=== PATIENT | male | born 1985 | race Caucasian/White ===

== ENCOUNTER 2017-06-15 14:19 | Emergency (ER) | payer SELFPAY ==
[2017-06-15] MEDS ORDERED: IBUPROFEN 200 MG TAB PO ONE (14:48)
[2017-06-15] MEDS ORDERED: IBUPROFEN 400 MG TAB ONE (14:48)
[2017-06-15] MEDS ORDERED: ACETAMINOPHEN 325 MG TABLET ONE (14:48)
[2017-06-15 16:37] LABS: Absolute Lymphocytes (CBC) 0.9 K/uL (0.7-4.9); Absolute Neutrophil 7.9 K/uL (1.8-8.0); Basophils % 0.6 % (0-1.3); Eosinophils % 3.2 % (0-4.4); Hematocrit 45.6 % (39.6-49.0); Lymphocytes % 9.2 % (15.3-44.8); MCH 31.4 pg (27.0-35.0); MCV 90.6 fL (80-100); MPV 8.7 fL (7.6-11.3); Monocytes % 9.8 % (3.3-12.3); RBC Red Blood Cell Count 5.03 M/uL (4.33-5.43)
[2017-06-15 16:44] LABS: Protime INR 1.16
[2017-06-15 16:46] LABS: Potassium 3.9 mEq/L (3.6-5.0)
[2017-06-15 16:52] LABS: Albumin 4.2 g/dL (3.2-5.5); Bilirubin Direct 0.1 mg/dL (0-0.2); Bilirubin Total 0.9 mg/dL (0.3-1.2); Protein, Total 8.3 g/dL (6.0-8.3)
[2017-06-15 17:10] LABS: CKMB Creatine Kinase MB 0.9 ng/ml (0.3-4.0)
[2017-06-15] MEDS ORDERED: ALBUTEROL 2.5 MG/3 ML NEB SOL ONE (17:35)
[2017-06-15] MEDS ORDERED: NA CHLORIDE 0.9% 1,000 ML ONE (17:35)
[2017-06-15] MEDS ORDERED: BENZONATATE 100 MG CAP PO ONE (17:35)
--- NOTE | 2017-06-15 17:54 | RAD REPORT ---
EXAM DESCRIPTION: Emi Gibson (2 Views)06/15/2017 3:58 pm CLINICAL HISTORY: Cough COMPARISON: March 2017 FINDINGS: The interstitial pattern within the right lung base is mildly prominent. The heart is nor mal size IMPRESSION: Mild prominence of the interstitial pattern within the right lung base may indicate an a typical pneumonia
[2017-06-15] MEDS ORDERED: levoFLOXacin 750 MG TAB ONE (18:17)
--- NOTE | 2017-06-15 18:30 | EDPHYS ---
Physician Documentation [facility] Name: Stephen Ribeiro Age: 31 yrs Sex: Male : 1985 Arrival Date: 06/15/2017 Time: 14:20 Bed 25 Private MD: ED Physician Shailesh Leon HPI: 06/15 15:48 This 31 yrs old Male presents to ER via Ambulatory with complaints of Fever. cp 15:48 The patient reports fever, with an emergency department temperature of 101.4 degrees cp Fahrenheit. Onset: The symptoms/episode began/occurred 2 day(s) ago. Associated signs and symptoms: Pertinent positives: cough, sore throat. Severity of symptoms: in the emergency department the symptoms are unchanged despite home interventions. Historical: - Allergies: 14:51 PENICILLINS; aj - Home Meds: 14:51 Depakote ER Oral [Active]; aj - PMHx: 14:51 Seizures; aj - PSHx: 14:51 None; aj - Immunization history:: Adult Immunizations up to date. - Social history:: Smoking status: Patient uses tobacco products, smokes one pack cigarettes per day. ROS: 16:00 Constitutional: Positive for body aches, chills, fever, Negative for poor PO intake. cp 16:00 Eyes: Negative for injury, pain, redness, and discharge. cp 16:00 ENT: Positive for sore throat, Negative for drainage from ear(s), ear pain, difficulty swallowing, difficulty handling secretions. 16:00 Neck: Negative for pain with movement, pain at rest, stiffness, swelling. 16:00 Cardiovascular: Negative for chest pain, edema, palpitations. 16:00 Respiratory: Positive for cough, "sounds productive", Negative for shortness of breath, wheezing. 16:00 Abdomen/GI: Negative for abdominal pain, vomiting, diarrhea, constipation, black/tarry stool, rectal bleeding. 16:00 Skin: Negative for cellulitis, rash. 16:00 Neuro: Negative for altered mental status, dizziness, weakness. 16:00 All other systems are negative. Exam: 16:05 Constitutional: The patient appears in no acute distress, alert, awake, cp non-diaphoretic, non-toxic, well developed, well nourished. 16:05 Head/Face: Normocephalic, atraumatic. Eyes: Pupils equal round and reactive to light, cp extra-ocular motions intact. Lids and lashes normal. Conjunctiva and sclera are non-icteric and not injected. Cornea within normal limits. Periorbital areas with no swelling, redness, or edema. ENT: Nares patent. No nasal discharge, no septal abnormalities noted. Tympanic membranes are normal and external auditory canals are clear. Oropharynx with no redness, swelling, or masses, exudates, or evidence of obstruction, uvula midline. Mucous membranes moist. Neck: Trachea midline, no thyromegaly or masses palpated, and no cervical lymphadenopathy. Supple, full range of motion without nuchal rigidity, or vertebral point tenderness. No Meningismus. Chest/axilla: Normal chest wall appearance and motion. Nontender with no deformity. No lesions are appreciated. 16:05 Cardiovascular: Rate: tachycardic, Rhythm: regular, Edema: is not appreciated, JVD: is not appreciated. 16:05 Respiratory: the patient does not display signs of respiratory distress, Respirations: normal, no use of accessory muscles, no retractions, no splinting, no tachypnea, labored breathing, is not present, Breath sounds: decreased breath sounds, that are mild, are located in both bases, stridor, is not appreciated, wheezing: is not appreciated. 16:05 Abdomen/GI: Inspection: abdomen appears normal, Bowel sounds: active, all quadrants, Palpation: abdomen is soft and non-tender, in all quadrants, mass, is not appreciated, voluntary guarding, is not appreciated, involuntary guarding, is not appreciated. 16:05 Back: pain, is absent, ROM is normal. 16:05 Skin: cellulitis, is not appreciated, no rash present. 16:05 Neuro: Orientation: to person, place \\T\\ time. Mentation: lucid, able to follow commands, Cerebellar function: is grossly normal, Motor: moves all fours, strength is normal, Sensation: no obvious gross deficits. 17:52 ECG was reviewed by the Attending Physician. cp Vital Signs: 14:51 BP 151 / 72; Pulse 121; Resp 20; Temp 101.4; Pulse Ox 96% on R/A; Weight 90.72 kg; aj Height 5 ft. 10 in. (177.80 cm); 15:27 BP 119 / 69; Pulse 115; Resp 20; Temp 100.1(O); Pulse Ox 96% on R/A; kr2 15:29 Temp 100.1(O); kr2 15:29 Temp 100.1(O); kr2 16:31 BP 122 / 66; Pulse 105; Resp 16; Temp 98.8(O); Pulse Ox 95% on R/A; kr2 17:30 BP 130 / 77; Pulse 100; Resp 19; Pulse Ox 99% on R/A; kr2 18:30 BP 124 / 77; Pulse 102; Resp 19; Pulse Ox 99% on R/A; kr2 14:51 Body Mass Index 28.70 (90.72 kg, 177.80 cm) aj MDM: 15:25 Patient medically screened. cp 18:29 Data reviewed: vital signs, nurses notes, lab test result(s), EKG, radiologic studies, cp plain films. 18:29 Differential diagnosis: URI, bronchitis, pneumonia meningitis. Counseling: I had a cp detailed discussion with the patient and/or guardian regarding: the historical points, exam findings, and any diagnostic results supporting the discharge/admit diagnosis, lab results, radiology results, to return to the emergency department if symptoms worsen or persist or if there are any questions or concerns that arise at home. Response to treatment: the patient's symptoms have markedly improved after treatment, VSS. Will treat for pneumonia with oral Levaquin and discharge to home for continued monitoring. 06/15 15:44 Order name: Influenza Screen (a \\T\\ B) 06/15 15:44 Order name: Strep 06/15 15:44 Order name: Urine Microscopic Only 06/15 15:44 Order name: Basic Metabolic Panel; Complete Time: 17:17 06/15 17:17 Interpretation: Normal except: CL 99; GFR 86. 06/15 15:44 Order name: Blood Culture Adult (2) 06/15 15:44 Order name: CBC with Diff; Complete Time: 16:41 06/15 16:41 Interpretation: Normal except: NATO% 77.2; LYM% 9.2. 06/15 15:44 Order name: Ckmb; Complete Time: 17:17 06/15 17:29 Interpretation: Reviewed. 06/15 15:44 Order name: CPK; Complete Time: 17:17 06/15 15:44 Order name: Lactate; Complete Time: 17:17 06/15 15:44 Order name: LFT's; Complete Time: 17:17 06/15 17:17 Interpretation: Normal except: GLOB 4.1; A/G 1.0. 06/15 15:44 Order name: Procalcitonin; Complete Time: 17:17 06/15 17:29 Interpretation: Within normal limits: Procalcitonin 0.05. 06/15 15:44 Order name: Protime (+inr); Complete Time: 17:17 06/15 17:28 Interpretation: Reviewed. 06/15 15:44 Order name: Ptt, Activated; Complete Time: 17:17 06/15 15:44 Order name: Troponin (emerg Dept Use Only); Complete Time: 17:17 06/15 17:29 Interpretation: Reviewed. 06/15 15:44 Order name: Accucheck; Complete Time: 17:45 06/15 15:44 Order name: Cardiac monitoring; Complete Time: 16:28 06/15 15:44 Order name: EKG - Nurse/Tech; Complete Time: 19:09 06/15 15:44 Order name: XRAY Chest Pa And Lat (2 Views); Complete Time: 18:02 06/15 15:45 Order name: Influenza Screen (A ; Complete Time: 17:17 [facility] 06/15 15:45 Order name: Group A Streptococcus Rapid Sc; Complete Time: 17:17 [facility] 06/15 16:23 Order name: Depakote; Complete Time: 18:02 kr2 06/15 16:54 Order name: Throat Culture [facility] 06/15 18:11 Order name: EKG Electrocardiogram [facility] 06/15 18:58 Order name: Urine Dipstick--Ancillary (enter results) ag 06/15 15:44 Order name: IV Saline Lock - Large Bore; Complete Time: 16:28 cp 06/15 15:44 Order name: Labs collected and sent; Complete Time: 16:28 cp 06/15 15:44 Order name: O2 Per Protocol; Complete Time: 16:28 cp 06/15 15:44 Order name: O2 Sat Monitoring; Complete Time: 16:29 06/15 15:44 Order name: Urine Dipstick-Ancillary (obtain specimen); Complete Time: 18:55 cp EC:52 Rate is 96 beats/min. Rhythm is regular. [place] interval is normal. QRS interval is normal. cp QT interval is normal. Clinical impression: Abnormal EKG without significant change. Interpreted by me. Reviewed by me. Administered Medications: 14:53 Drug: Tylenol 650 mg Route: PO; aj 15:29 Follow up: Temp 100.1 Oral; Response: No adverse reaction; Pain is decreased kr2 14:53 Drug: Motrin 600 mg Route: PO; aj 15:29 Follow up: Temp 100.1 Oral; Response: No adverse reaction; Temperature is decreased kr2 17:43 Drug: NS 0.9% 1000 ml Route: IV; Rate: 1 bolus; Site: right antecubital; kr2 19:07 Follow up: Response: No adverse reaction; IV Status: Completed infusion kr2 17:43 Drug: Tessalon Perle 200 mg Route: PO; kr2 19:07 Follow up: Response: No adverse reaction; Pain is decreased kr2 17:43 Drug: Albuterol 2.5 mg Route: Inhalation; kr2 19:06 Follow up: Response: No adverse reaction kr2 18:20 Drug: LevaQUIN 750 mg Route: PO; kr2 19:06 Follow up: Response: No adverse reaction kr2 Disposition: 06/15/17 18:30 Discharged to Home. Impression: Pneumonia due to other specified bacteria. - Condition is Stable. - Discharge Instructions: Pneumonia, Adult. - Prescriptions for Levaquin 750 mg Oral Tablet - take 1 tablet by ORAL route once daily for 10 days start afternoon of 06-16-2017; 9 tablet. Albuterol Sulfate 90 mcg/actuation - inhale 1-2 puff by INHALATION route every 4-6 hours; 1 Inhaler. - Medication Reconciliation Form, Thank You Letter, Antibiotic Education, Prescription Opioid Use, Work release form form. - Follow up: Private Physician; When: 1 - 2 days; Reason: Recheck today's complaints. - Problem is new. - Symptoms have improved. Addendum: 06/18/2017 19:04 Co-signature as Attending Physician, Shailesh Leon MD. g s Signatures: Dispatcher [employer] Karina Barboza RN RN aj Page, Corey, PA PA cp Leon, Shailesh, MD MD gs Christine, Nettie, RN RN kr2
--- NOTE | 2017-06-15 18:30 | ER ---
Nurse's Notes [facility] Name: Stephen Ribeiro Age: 31 yrs Sex: Male : 1985 Arrival Date: 06/15/2017 Time: 14:20 Bed 25 Private MD: Diagnosis: Pneumonia due to other specified bacteria Presentation: 06/15 14:50 Presenting complaint: Patient states: Fever and body aches with cough since Monday aj night. Patient was tested at urgent care for flu and strep, both negative. Transition of care: patient was not received from another setting of care. Onset of symptoms was June 13, 2017. Initial Sepsis Screen: Does the patient meet any 2 criteria? No. Patient's initial sepsis screen is negative. Does the patient have a suspected source of infection? No. Patient's initial sepsis screen is negative. Care prior to arrival: None. 14:50 Method Of Arrival: Ambulatory aj 14:50 Acuity: TRISH 4 aj Triage Assessment: 14:51 General: Appears in no apparent distress. comfortable, Behavior is calm, cooperative, aj appropriate for age. Pain: Complains of pain in body aches. Neuro: Level of Consciousness is awake, alert, obeys commands, Oriented to person, place, time, situation. Respiratory: Reports cough that is Airway is patent Respiratory effort is even, unlabored, Respiratory pattern is regular, symmetrical. Derm: Skin is intact, is healthy with good turgor, Skin is pink, warm \T\ dry. normal. Historical: - Allergies: 14:51 PENICILLINS; aj - Home Meds: 14:51 Depakote ER Oral [Active]; aj - PMHx: 14:51 Seizures; aj - PSHx: 14:51 None; aj - Immunization history:: Adult Immunizations up to date. - Social history:: Smoking status: Patient uses tobacco products, smokes one pack cigarettes per day. Screenin:26 Abuse screen: Denies threats or abuse. Denies injuries from another. Nutritional kr2 screening: No deficits noted. Tuberculosis screening: No symptoms or risk factors identified. Fall Risk None identified. Assessment: 15:22 General: Appears in no apparent distress. comfortable, well groomed, well developed, kr2 well nourished, Behavior is calm, cooperative, appropriate for age. Pain: Complains of pain in entire body Pain currently is 8 out of 10 on a pain scale. Quality of pain is described as aching, Is continuous, Alleviated by nothing. Neuro: Level of Consciousness is awake, alert, obeys commands, Oriented to person, place, time, situation. Cardiovascular: Capillary refill < 3 seconds in bilateral fingers Patient's skin is warm and dry. Respiratory: Reports cough that is productive, persistent Airway is patent Respiratory effort is even, unlabored, Respiratory pattern is regular, symmetrical. GI: Abdomen is flat, non-distended. : No signs and/or symptoms were reported regarding the genitourinary system. EENT: Nares are clear bilaterally Oral mucosa is moist. Reports nasal congestion nasal discharge. Derm: Skin is intact, is healthy with good turgor, Skin is pink, warm \T\ dry. Musculoskeletal: Circulation, motion, and sensation intact. 16:30 Reassessment: Patient appears in no apparent distress at this time. Patient and/or kr2 family updated on plan of care and expected duration. Pain level reassessed. 17:30 Reassessment: Patient appears in no apparent distress at this time. Patient and/or kr2 family updated on plan of care and expected duration. Pain level reassessed. Patient is alert, oriented x 3, equal unlabored respirations, skin warm/dry/pink. Patient denies pain at this time. Patient states feeling better. 19:05 Reassessment: Patient appears in no apparent distress at this time. Patient is alert, kr2 oriented x 3, equal unlabored respirations, skin warm/dry/pink. Patient denies pain at this time. Patient states feeling better. Patient states symptoms have improved. Vital Signs: 14:51 BP 151 / 72; Pulse 121; Resp 20; Temp 101.4; Pulse Ox 96% on R/A; Weight 90.72 kg; aj Height 5 ft. 10 in. (177.80 cm); 15:27 BP 119 / 69; Pulse 115; Resp 20; Temp 100.1(O); Pulse Ox 96% on R/A; kr2 15:29 Temp 100.1(O); kr2 15:29 Temp 100.1(O); kr2 16:31 BP 122 / 66; Pulse 105; Resp 16; Temp 98.8(O); Pulse Ox 95% on R/A; kr2 17:30 BP 130 / 77; Pulse 100; Resp 19; Pulse Ox 99% on R/A; kr2 18:30 BP 124 / 77; Pulse 102; Resp 19; Pulse Ox 99% on R/A; kr2 14:51 Body Mass Index 28.70 (90.72 kg, 177.80 cm) aj ED Course: 14:20 Patient arrived in ED. as 14:51 Triage completed. aj 14:51 Arm band placed on left wrist. Patient placed in waiting room, Patient notified of wait aj time. Antipyretics given from triage as ordered by an ER provider. 15:09 Nettie King, RN is Primary Nurse. kr2 15:25 Don Marie PA is PHCP. cp 15:25 Shailesh Leon MD is Attending Physician. cp 15:26 Patient has correct armband on for positive identification. Bed in low position. Call kr2 light in reach. Side rails up X 1. Adult w/ patient. Pulse ox on. NIBP on. Door closed. Head of bed elevated. 15:54 Patient moved to radiology via wheelchair. mh1 15:56 XRAY Chest Pa And Lat (2 Views) In Process Unspecified. EDMS 16:15 Inserted saline lock: 20 gauge in right antecubital area, using aseptic technique. kr2 Blood collected. 16:15 First set of blood cultures drawn by me. kr2 16:35 Second set of blood cultures drawn by me. kr2 19:07 No provider procedures requiring assistance completed. IV discontinued, intact, kr2 bleeding controlled, No redness/swelling at site. Pressure dressing applied. Administered Medications: 14:53 Drug: Tylenol 650 mg Route: PO; aj 15:29 Follow up: Temp 100.1 Oral; Response: No adverse reaction; Pain is decreased kr2 14:53 Drug: Motrin 600 mg Route: PO; aj 15:29 Follow up: Temp 100.1 Oral; Response: No adverse reaction; Temperature is decreased kr2 17:43 Drug: NS 0.9% 1000 ml Route: IV; Rate: 1 bolus; Site: right antecubital; kr2 19:07 Follow up: Response: No adverse reaction; IV Status: Completed infusion kr2 17:43 Drug: Tessalon Perle 200 mg Route: PO; kr2 19:07 Follow up: Response: No adverse reaction; Pain is decreased kr2 17:43 Drug: Albuterol 2.5 mg Route: Inhalation; kr2 19:06 Follow up: Response: No adverse reaction kr2 18:20 Drug: LevaQUIN 750 mg Route: PO; kr2 19:06 Follow up: Response: No adverse reaction kr2 Outcome: 18:30 Discharge ordered by . cp 19:08 Discharged to home ambulatory, with family. kr2 19:08 Condition: stable 19:08 Discharge instructions given to patient, family, Instructed on discharge instructions, follow up and referral plans. medication usage, Demonstrated understanding of instructions, follow-up care, medications, Prescriptions given X 2. 19:08 Patient left the ED. kr2 Signatures: Dispatcher [employer] EDMS Karina Hernandez RN RN Kakyay Roman [facility] Thelma Fernandes Corey, PA PA cp Reaves, Karey, RN RN kr2 Corrections: (The following items were deleted from the chart) 15:26 15:22 Pain: Denies pain. kr2 kr2 15:26 15:22 Respiratory: Airway is patent Respiratory effort is even, unlabored, Respiratory kr2 pattern is regular, symmetrical, kr2 15:30 15:27 BP 119 / 69; Pulse 115bpm; Resp 20bpm; Pulse Ox 96% RA; kr2 kr2 16:45 16:31 BP 122 / 66; Pulse 105bpm; Resp 16bpm; Pulse Ox 95% RA; kr2 kr2 19:05 18:30 BP 130 / 77; Pulse 100bpm; Resp 19bpm; Pulse Ox 99% RA; kr2 kr2
[2017-06-15 19:16] VITALS: TEMP 98.8
[2017-06-15 19:17] VITALS: O2SAT 99
[2017-06-15 19:18] VITALS: BP 124/77
[2017-06-15 19:29] LABS: Urine Blood NEGATIVE (NEG); Urine Glucose NEGATIVE (NEG); Urine Protein TRACE (NEG); Urine pH 5.5 (5.0-7.0)
[2017-06-15 19:41] LABS: Urine Bacteria <20 /HPF (NONE SEEN); Urine RBC <5 /HPF (NONE SEEN)
[2017-06-15 19:42] LABS: Urine Culture Reflex Order NOT NEEDED; Urine Mucus 4+ /HPF (NONE SEEN)
--- NOTE | 2017-06-16 16:29 | EKG ---
Test Date: 2017-06-15 Test Time: 17:45:11 Student Life Advisor: BARRY MEASUREMENT RESULTS: Intervals: Rate: 96 LA: 134 QRSD: 90 QT: 354 QTc: 447 [place]: P: 72 LA: 134 QRS: 70 T: 250 INTERPRETIVE STATEMENTS: Normal sinus rhythm RSR' or QR pattern in V1 suggests right ventricular conduction delay Cannot rule out Inferior infarct, age undetermined T wave abnormality, consider lateral ischemia Abnormal ECG Compared to ECG 03/30/2017 14:03:25 RSR' in V1 or V2 now present T-wave abnormality now present Possible ischemia now present Left ventricular hypertrophy no longer present Myocardial infarct finding still present Electronically Signed On 06-16-17 16:24:02 CDT by Grady Goodrich
== END 2017-06-15 19:08 | disposition home or self-care (01) ==
LOC: ER 14:19
DX: J15.8 Pneumonia due to other specified bacteria (principal); G40.909 Epilepsy, unspecified, not intractable, without status epilepticus; F17.210 Nicotine dependence, cigarettes, uncomplicated; Z88.0 Allergy status to penicillin
CPT/HCPCS: 36415; 71046; 80048; 80076; 80164; 81003; 81015; 82550; 82553; 83605; 84145; 84484; 85025; 85610; 85730; 87040; 87070; 87081; 87804; 93005; 96360; 99284; J7030

== ENCOUNTER 2017-06-17 08:01 | Emergency (ER) | payer SELFPAY ==
[2017-06-17] MEDS ORDERED: IPRATROPIUM BROM 0.5MG/2.5ML ONE (08:12)
[2017-06-17] MEDS ORDERED: ALBUTEROL 2.5 MG/3 ML NEB SOL ONE (08:12)
[2017-06-17 08:38] LABS: Absolute Lymphocytes (CBC) 1.2 K/uL (0.7-4.9); Absolute Neutrophil 4.8 K/uL (1.8-8.0); Basophils % 0.6 % (0-1.3); Eosinophils % 4.8 % (0-4.4); Hematocrit 43.6 % (39.6-49.0); Lymphocytes % 16.2 % (15.3-44.8); MCH 30.6 pg (27.0-35.0); MCV 90.4 fL (80-100); MPV 8.6 fL (7.6-11.3); Monocytes % 13.8 % (3.3-12.3); RBC Red Blood Cell Count 4.82 M/uL (4.33-5.43)
[2017-06-17 08:45] LABS: BUN Blood Urea Nitrogen 11 mg/dL (6-20); Bicarbonate 23 mEq/L (21-31); Glucose Level 116 mg/dL (65-120); Potassium 4.3 mEq/L (3.6-5.0); Sodium Level 131 mEq/L (135-145)
[2017-06-17] MEDS ORDERED: NA CHLORIDE 0.9% 1,000 ML ONE (08:52)
[2017-06-17] MEDS ORDERED: HYDROCODONE/CHLORPHEN 5 ML/OSYR ONE (08:57)
[2017-06-17 09:31] LABS: Blood Morphology Comment NOT SEEN (NOT SEEN); Platelet Estimate ADEQ
--- NOTE | 2017-06-17 09:41 | EDPHYS ---
Physician Documentation [facility] Name: Stephen Ribeiro Age: 31 yrs Sex: Male : 1985 Arrival Date: 06/17/2017 Time: 08:04 Bed 7 Private MD: ED Physician Don Liu HPI: 06/17 08:11 This 31 yrs old Male presents to ER via Unassigned with complaints of Cough. kb 08:11 The patient or guardian reports cough, that is intermittent, described as moderate, kb with no sputum. Severity of symptoms: At their worst the symptoms were moderate, in the emergency department the symptoms are unchanged. Modifying factors: The symptoms are alleviated by nothing, the symptoms are aggravated by nothing. Associated signs and symptoms: Pertinent negatives: chest pain, diarrhea, ear ache, fever, nausea, rhinorrhea, sore throat, vomiting. The patient has not experienced similar symptoms in the past. The patient has been recently seen at the [facility] Emergency Department, this week, for similar complaints labs were performed, X-rays were performed, was given a prescription for antibiotics. 08:12 Onset: The symptoms/episode began/occurred 4 day(s) ago. kb Historical: - Allergies: 08:16 PENICILLINS; iw - Home Meds: 08:16 Depakote ER Oral [Active]; iw - PMHx: 08:16 Seizures; iw - PSHx: 08:16 None; iw - Immunization history:: Adult Immunizations not up to date. - Social history:: Smoking status: Patient uses tobacco products, smokes one pack cigarettes per day. ROS: 08:11 Constitutional: Negative for fever, chills, and weight loss, ENT: Negative for injury, kb pain, and discharge, Neck: Negative for injury, pain, and swelling, Cardiovascular: Negative for chest pain, palpitations, and edema, Abdomen/GI: Negative for abdominal pain, nausea, vomiting, diarrhea, and constipation, Back: Negative for injury and pain, : Negative for injury, bleeding, discharge, and swelling, MS/Extremity: Negative for injury and deformity, Skin: Negative for injury, rash, and discoloration, Neuro: Negative for headache, weakness, numbness, tingling, and seizure. 08:11 Respiratory: Positive for cough, with no reported sputum, Negative for dyspnea on exertion, hemoptysis, orthopnea, pleurisy, shortness of breath, sputum production, wheezing. Exam: 08:11 Constitutional: This is a well developed, well nourished patient who is awake, alert, kb and in no acute distress. Head/Face: Normocephalic, atraumatic. Neck: Trachea midline, no thyromegaly or masses palpated, and no cervical lymphadenopathy. Supple, full range of motion without nuchal rigidity, or vertebral point tenderness. No Meningismus. Chest/axilla: Normal chest wall appearance and motion. Nontender with no deformity. No lesions are appreciated. Cardiovascular: Regular rate and rhythm with a normal S1 and S2. No gallops, murmurs, or rubs. Normal PMI, no JVD. No pulse deficits. Respiratory: Lungs have equal breath sounds bilaterally, clear to auscultation and percussion. No rales, rhonchi or wheezes noted. No increased work of breathing, no retractions or nasal flaring. Abdomen/GI: Soft, non-tender, with normal bowel sounds. No distension or tympany. No guarding or rebound. No evidence of tenderness throughout. Skin: Warm, dry with normal turgor. Normal color with no rashes, no lesions, and no evidence of cellulitis. MS/ Extremity: Pulses equal, no cyanosis. Neurovascular intact. Full, normal range of motion. Neuro: Awake and alert, GCS 15, oriented to person, place, time, and situation. Cranial nerves II-XII grossly intact. Motor strength 5/5 in all extremities. Sensory grossly intact. Cerebellar exam normal. Normal gait. Vital Signs: 08:16 BP 132 / 85; Pulse 103; Resp 20 S; Temp 98.2(O); Pulse Ox 96% on R/A; Weight 90.72 kg; iw Height 5 ft. 2 in. (157.48 cm); Pain 10/10; 08:46 BP 126 / 80; Pulse 99; Resp 19; Pulse Ox 97% on R/A; ae1 08:16 Body Mass Index 36.58 (90.72 kg, 157.48 cm) iw MDM: 08:04 Patient medically screened. kb 08:11 Data reviewed: vital signs, nurses notes. Data interpreted: Pulse oximetry: on room air kb is 96 %. Interpretation: normal. 09:36 Counseling: I had a detailed discussion with the patient and/or guardian regarding: the kb historical points, exam findings, and any diagnostic results supporting the discharge/admit diagnosis, lab results, radiology results, the need for further work-up and treatment in the hospital, smoking cessation. Physician consultation: Maria Guadalupe Johnson MD was contacted at 09:37, regarding admission, to the medical/surgical unit. patient's condition, and will see patient in ED, shortly. ED course: Worsening pneumonia on x-ray, wheezing bilaterally after neb treatment, O2 sat 91-94% on room air after neb. Will admit for failed outpt therapy, IV antibiotics. 06/17 08:11 Order name: CBC with Diff; Complete Time: 09:32 kb 06/17 08:11 Order name: Basic Metabolic Panel; Complete Time: 08:50 kb 06/17 08:11 Order name: Chest Pa And Lat (2 Views) XRAY; Complete Time: 10:26 kb 06/17 09:30 Order name: Manual Differential; Complete Time: 09:32 EDMS 06/17 09:36 Order name: Blood Culture Adult (2) kb 06/17 09:36 Order name: Procalcitonin; Complete Time: 10:42 kb Administered Medications: 08:12 Drug: DuoNeb (3:1) (2.5 mg - 0.5 mg) 3 ml Route: Nebulizer; ae1 11:24 Follow up: Response: Other; SOB decreased. ae1 08:55 Drug: NS 0.9% 1000 ml Route: IV; Rate: 1000 ml; Site: right antecubital; ae1 08:59 Drug: Tussionex Pennkinetic ER 5 ml Route: PO; ae1 11:24 Follow up: Response: Other; Cough decreased. ae1 09:50 Drug: SOLU-Medrol 125 mg Route: IVP; Site: right antecubital; ae1 11:24 Follow up: Response: No adverse reaction ae1 09:54 Drug: Rocephin - (cefTRIAXone) 1 grams Route: IVPB; Infused Over: 30 mins; Site: right ae1 antecubital; 09:59 Follow up: IV Status: Completed infusion ae1 09:59 Drug: Zithromax 500 mg Route: IVPB; Infused Over: 1 hrs; Site: right antecubital; ae1 11:23 Follow up: IV Status: Completed infusion ae1 Disposition: 06/17/17 10:35 Discharged to Home. Impression: Bronchitis, not specified as acute or chronic. - Condition is Stable. - Discharge Instructions: Acute Bronchitis, Srpa-op-Npty, Aspiration Pneumonia. - Prescriptions for Advair Diskus 500- 50 mcg/Dose Inhalation Disk with Device - inhale 1 puff by INHALATION route every 12 hours; 1 packet. Clindamycin HCl 300 mg Oral Capsule - take 1 capsule by ORAL route every 6 hours for 10 days; 40 capsule. Singulair 5 mg Oral Tablet - take 1 tablet by ORAL route At bedtime; 20 tablet. Medrol (Lorenzo) 4 mg Oral Tablets, Dose Pack - take 1 tablet by ORAL route as directed - follow package instructions; 1 packet. Albuterol Sulfate 90 mcg/actuation - inhale 1-2 puff by INHALATION route every 4-6 hours; 1 Inhaler. Tessalon Perles 100 mg Oral Capsule - take 1 capsule by ORAL route every 8 hours As needed; 15 capsule. - Medication Reconciliation Form, Thank You Letter, Antibiotic Education, Prescription Opioid Use form. - Follow up: Jori Espinosa MD; When: 1 - 2 days. - Problem is new. - Symptoms are resolved. Addendum: 06/19/2017 08:49 Co-signature as Attending Physician, Don Liu MD I agree with the assessment and c plasencia plan of care. Signatures: Dispatcher [employer] Ashlee Oliveira, DENNIS-C RESIDENTIAL SUPPORT WORKER-Don Borrero MD MD cha Williams, Irene, RN RN iw Matt Arora RN RN ae1 Maria Guadalupe Johnson MD MD rp3 Wendy Hughes Corrections: (The following items were deleted from the chart) 06/17 09:38 09:15 Counseling: I had a detailed discussion with the patient and/or guardian ministerio regarding: the historical points, exam findings, and any diagnostic results supporting the discharge/admit diagnosis, lab results, radiology results, the need for outpatient follow up, a family practitioner, to return to the emergency department if symptoms worsen or persist or if there are any questions or concerns that arise at home, kb
--- NOTE | 2017-06-17 09:41 | ER ---
Nurse's Notes [facility] Name: Stephen Ribeiro Age: 31 yrs Sex: Male : 1985 Arrival Date: 06/17/2017 Time: 08:04 Bed 7 Private MD: Diagnosis: Bronchitis, not specified as acute or chronic Presentation: 06/17 08:14 Presenting complaint: Patient states: was seen here , was diagnosed with iw pneumonia, started Levaquin but is still having cough and can't sleep. Transition of care: patient was not received from another setting of care. Onset of symptoms was June 17, 2017. Initial Sepsis Screen: Does the patient meet any 2 criteria? No. Patient's initial sepsis screen is negative. Does the patient have a suspected source of infection? No. Patient's initial sepsis screen is negative. Care prior to arrival: None. 08:14 Method Of Arrival: Ambulatory iw 08:14 Acuity: TRISH 3 iw Triage Assessment: 08:22 General: Appears in no apparent distress. comfortable, Behavior is cooperative, ae1 agitated, anxious. Pain: Complains of pain in diaphragm. EENT: No signs and/or symptoms were reported regarding the EENT system. Neuro: Level of Consciousness is awake, alert, obeys commands, Oriented to person, place, time, situation. Cardiovascular: Heart tones S1 S2 present Patient's skin is warm and dry. Rhythm is regular. Respiratory: Reports shortness of breath cough that is Airway is patent Respiratory effort is even, unlabored, Respiratory pattern is regular, symmetrical, Breath sounds are clear bilaterally. GI: No signs and/or symptoms were reported involving the gastrointestinal system. : No signs and/or symptoms were reported regarding the genitourinary system. Derm: Skin is normal. Musculoskeletal: Reports Fatigue. Historical: - Allergies: 08:16 PENICILLINS; iw - Home Meds: 08:16 Depakote ER Oral [Active]; iw - PMHx: 08:16 Seizures; iw - PSHx: 08:16 None; iw - Immunization history:: Adult Immunizations not up to date. - Social history:: Smoking status: Patient uses tobacco products, smokes one pack cigarettes per day. Screenin:21 Abuse screen: Denies threats or abuse. Nutritional screening: No deficits noted. ae1 Tuberculosis screening: No symptoms or risk factors identified. Fall Risk None identified. Assessment: 08:57 Reassessment: Patient c/o pain to diaphragm area and pain with cough, patient requests ae1 pain medication, provider notified, new orders received. Vital Signs: 08:16 BP 132 / 85; Pulse 103; Resp 20 S; Temp 98.2(O); Pulse Ox 96% on R/A; Weight 90.72 kg; iw Height 5 ft. 2 in. (157.48 cm); Pain 10/10; 08:46 BP 126 / 80; Pulse 99; Resp 19; Pulse Ox 97% on R/A; ae1 08:16 Body Mass Index 36.58 (90.72 kg, 157.48 cm) iw ED Course: 08:04 Patient arrived in ED. rg4 08:04 Ashlee Gorman FNP-C is PHCP. kb 08:04 Don Liu MD is Attending Physician. kb 08:16 Triage completed. iw 08:16 Arm band placed on. iw 08:18 Matt Arora, GOPAL is Primary Nurse. ae1 08:19 Inserted saline lock: 20 gauge in right antecubital area, using aseptic technique. ae1 Blood collected. 08:21 Bed in low position. Call light in reach. Side rails up X 1. Adult w/ patient. Pulse ox ae1 on. NIBP on. 08:46 X-ray completed. Patient tolerated procedure well. Patient moved to radiology via kp1 wheelchair. Patient taken to an exam room, via wheelchair, Patient moved back from radiology. 08:47 Chest Pa And Lat (2 Views) XRAY In Process Unspecified. EDMS 09:40 Maria Guadalupe Johnson MD is Hospitalizing Provider. kb 10:33 Jori Espinosa MD is Referral Physician. rp3 10:38 Maria Guadalupe Johnson MD staff scientist. rp3 11:21 No provider procedures requiring assistance completed. IV discontinued, intact, ae1 bleeding controlled, No redness/swelling at site. Pressure dressing applied. Administered Medications: 08:12 Drug: DuoNeb (3:1) (2.5 mg - 0.5 mg) 3 ml Route: Nebulizer; ae1 11:24 Follow up: Response: Other; SOB decreased. ae1 08:55 Drug: NS 0.9% 1000 ml Route: IV; Rate: 1000 ml; Site: right antecubital; ae1 08:59 Drug: Tussionex Pennkinetic ER 5 ml Route: PO; ae1 11:24 Follow up: Response: Other; Cough decreased. ae1 09:50 Drug: SOLU-Medrol 125 mg Route: IVP; Site: right antecubital; ae1 11:24 Follow up: Response: No adverse reaction ae1 09:54 Drug: Rocephin - (cefTRIAXone) 1 grams Route: IVPB; Infused Over: 30 mins; Site: right ae1 antecubital; 09:59 Follow up: IV Status: Completed infusion ae1 09:59 Drug: Zithromax 500 mg Route: IVPB; Infused Over: 1 hrs; Site: right antecubital; ae1 11:23 Follow up: IV Status: Completed infusion ae1 Intake: Outcome: 09:40 Decision to Hospitalize by Provider. kb 10:35 Discharge ordered by . rp3 11:22 Discharged to home ambulatory, with family. ae1 11:22 Condition: stable 11:22 Discharge instructions given to patient, family, Instructed on discharge instructions, follow up and referral plans. medication usage, Demonstrated understanding of instructions, Prescriptions given X x6 11:23 Patient left the ED. ae1 Signatures: Dispatcher [employer] EDAshlee Coles, DENNIS-C POWER AND RECOVERY SUPERVISOR-Xenia Jesus RN RN iw Elliott, Andrea, RN RN ae1 Cynthia Reynolds4 Amanda Ross kp1 Maria Guadalupe Johnson MD MD rp3
[2017-06-17] MEDS ORDERED: CEFTRIAXONE/SWI 1gm 1 GM/10 ML SYR ONE (09:48)
[2017-06-17] MEDS ORDERED: METHYLPREDNISOLONE 125 MG INJ ONE (09:48)
[2017-06-17] MEDS ORDERED: AZITHROMYCIN 500 MG/250 ML BAG ONE (09:49)
--- NOTE | 2017-06-17 10:20 | RAD REPORT ---
EXAM DESCRIPTION: RAD - Chest Pa And Lat (2 Views) - 06/17/2017 8:47 am CLINICAL HISTORY: Cough, pneumonia COMPARISON: 06/15/2017, 04/05/2017 FINDINGS: Mild ill-defined right mid lung pulmonary opacity appears progressive/new since comparativ e study. Mild progression in right basilar ill-defined opacity also present. Left retrocardiac lung o pacity appears similar to slightly more dense than on the comparative exam. The heart is normal in si ze. No displaced fractures. IMPRESSION: Mild progression pulmonary opacities noted, particularly in the right mid lung, is most compatible with mild worsening of pneumonia. Findings were discussed with Dr. Johnson.
[2017-06-17 11:27] VITALS: TEMP 98.2
[2017-06-17 11:28] VITALS: BP 126/80; O2SAT 97
== END 2017-06-17 11:23 | disposition home or self-care (01) ==
LOC: ER 08:01 → UNDOADMIN 09:41 → ERHOLD 09:41 → ER 11:23
DX: J40 Bronchitis, not specified as acute or chronic (principal); F17.210 Nicotine dependence, cigarettes, uncomplicated; G40.909 Epilepsy, unspecified, not intractable, without status epilepticus; Z88.0 Allergy status to penicillin
CPT/HCPCS: 36415; 71046; 80048; 84145; 85025; 87040; 94640; 96365; 96375; 99284; J0456; J0696; J2930; J7030

== ENCOUNTER 2017-08-24 08:33 | Emergency (ER) | payer OTHER, SELFPAY ==
[2017-08-24 09:25] LABS: Absolute Lymphocytes (CBC) 2.2 K/uL (0.7-4.9); Absolute Monocytes 0.7 K/uL (0.1-1.3); Absolute Neutrophil 4.2 K/uL (1.8-8.0); Basophils % 1.2 % (0-1.3); Eosinophils % 6.8 % (0-4.4); Hematocrit 46.1 % (39.6-49.0); Lymphocytes % 28.7 % (15.3-44.8); MCH 31.7 pg (27.0-35.0); MCV 91.9 fL (80-100); MPV 8.9 fL (7.6-11.3); Monocytes % 8.6 % (3.3-12.3); RBC Red Blood Cell Count 5.01 M/uL (4.33-5.43)
[2017-08-24 09:44] LABS: ALT/SGPT 28 U/L (12-78); AST/SGOT 21 U/L (15-37); Albumin 3.7 g/dL (3.4-5.0); Alkaline Phosphatase 68 U/L (45-117); BUN Blood Urea Nitrogen 12 mg/dL (7-18); Bicarbonate 29 mmol/L (21-32); Bilirubin Direct < 0.1 mg/dL (0-0.2); Bilirubin Total 0.1 mg/dL (0.2-1.0); Glucose Level 127 mg/dL (74-106); Lipase 224 U/L (73-393); Potassium 4.2 mmol/L (3.5-5.1); Protein, Total 7.6 g/dL (6.4-8.2); Sodium Level 140 mmol/L (136-145)
--- NOTE | 2017-08-24 10:52 | RAD REPORT ---
EXAM DESCRIPTION: CT - Abdomen Pelvis W Contrast - 08/24/2017 10:31 am CLINICAL HISTORY: Abdominal pain with nausea. COMPARISON: March 2017 TECHNIQUE: Computed axial tomography of the abdomen pelvis was obtained. 100 cc Isovue-300 was admin istered intravenously. Oral contrast was given All CT scans are performed using dose optimization technique as appropriate and may include automated exposure control or mA/KV adjustment according to patient size. FINDINGS: A 9 millimeter left lower lobe nodule image 1 is unchanged from March 2017. A 11 millim eter left lower lobe nodule image 6 is without significant change. The liver, spleen, pancreas, adrenal and kidneys appear unremarkable. The appendix is normal. Diverticula stem from the colon without evidence of diverticulitis IMPRESSION: Two left lower lobe nodules unchanged from the prior exam probably are benign. Per Chely koch recommendation followup CT chest in 18 months is recommended No acute abnormality involving the abdomen/pelvis is seen
--- NOTE | 2017-08-24 11:10 | EDPHYS ---
Physician Documentation [facility] Name: Stephen Ribeiro Age: 31 yrs Sex: Male : 1985 Arrival Date: 08/24/2017 Time: 08:34 Bed 7 Private MD: ED Physician Gideon De Luna HPI: 08/24 09:01 This 31 yrs old Male presents to ER via Ambulatory with complaints of rn Abdominal Pain. 09:01 The patient presents with abdominal pain in the left upper quadrant, in the left lower rn quadrant. Onset: The symptoms/episode began/occurred 3 day(s) ago. The symptoms do not radiate. Associated signs and symptoms: Pertinent positives: anorexia, Pertinent negatives: blood in stools, diarrhea, dysuria, fever, hematuria, testicular pain, vomiting, vomiting blood. The symptoms are described as achy, intermittent. Modifying factors: The symptoms are alleviated by nothing, the symptoms are aggravated by nothing. Severity of pain: At its worst the pain was mild in the emergency department the pain is unchanged. The patient has experienced a previous episode. Reports left sided abd pain, has had diverticulitis in past, feels somewhat similar, never got colonoscopy in past, no fever, no blood in stool. . Historical: - Allergies: 08:55 PENICILLINS; ph - Home Meds: 08:55 Depakote 500 mg Oral TbEC 2 tabs 2 times per day [Active]; ph - PMHx: 08:55 Seizures; Diverticulitis; ph - PSHx: 08:55 None; ph - Immunization history:: Adult Immunizations unknown. - Social history:: Smoking status: Patient uses tobacco products, smokes one pack cigarettes per day. - Ebola Screening: : No symptoms or risks identified at this time. - Family history:: not pertinent. - Hospitalizations: : No recent hospitalization is reported. ROS: 09:01 Constitutional: Negative for fever, chills, + weight loss, Eyes: Negative for injury, rn pain, redness, and discharge, Neck: Negative for injury, pain, and swelling, Cardiovascular: Negative for chest pain, palpitations, and edema, Respiratory: Negative for shortness of breath, cough, wheezing, and pleuritic chest pain, Abdomen/GI: + abd pain and weight loss MS/Extremity: Negative for injury and deformity, Skin: Negative for injury, rash, and discoloration, Neuro: Negative for headache, weakness, numbness, tingling, and seizure. Exam: 09:01 Constitutional: This is a well developed, well nourished patient who is awake, alert, rn and in no acute distress. Head/Face: Normocephalic, atraumatic. Eyes: Pupils equal round and reactive to light, extra-ocular motions intact. ENT: MMM Abdomen/GI: soft, mild tenderness left side of abdomen, no rebound, no masses Skin: Warm, dry with normal turgor. Normal color with no rashes, no lesions, and no evidence of cellulitis. MS/ Extremity: Pulses equal, no cyanosis. Neurovascular intact. Full, normal range of motion. Equal circumference. Neuro: Awake and alert, GCS 15, oriented to person, place, time, and situation.Motor strength 5/5 in all extremities. Sensory grossly intact. Vital Signs: 08:53 BP 116 / 83; Pulse 87; Resp 18; Temp 98.0; Pulse Ox 99% on R/A; Weight 90.72 kg; Height ph 5 ft. 10 in. (177.80 cm); Pain 5/10; 09:27 BP 118 / 87; Pulse 71; Resp 18; Pulse Ox 99% on R/A; dh3 11:01 BP 111 / 78; Pulse 70; Resp 18; Pulse Ox 98% on R/A; ph 11:26 Temp 97.5(TE); ph 08:53 Body Mass Index 28.70 (90.72 kg, 177.80 cm) ph MDM: 08:50 Patient medically screened. rn 11:09 Differential diagnosis: appendicitis, diverticulitis, gastritis, gastroesophageal rn reflux disease, pancreatitis, Peptic Ulcer Disease, Ureterolithiasis. Data reviewed: vital signs, nurses notes, lab test result(s), EKG, radiologic studies, CT scan, and as a result, I will discharge patient. Counseling: I had a detailed discussion with the patient and/or guardian regarding: the historical points, exam findings, and any diagnostic results supporting the discharge/admit diagnosis, lab results, radiology results, the need for outpatient follow up, to return to the emergency department if symptoms worsen or persist or if there are any questions or concerns that arise at home. Response to treatment: the patient's symptoms have mildly improved after treatment, and as a result, I will discharge patient. Special discussion: Based on the patient's Hx, exam, and Dx evaluation, there is no indication for emergent surgery or inpatient Tx. It is understood by the patient/guardian that if the Sx's persist or worsen they need to return immediately for re-evaluation. I discussed with the patient/guardian in detail that at this point there is no indication for admission to the hospital. It is understood, however, that if the symptoms persist or worsen the patient needs to return immediately for re-evaluation. Based on the history and exam findings, there is no indication for further emergent testing or inpatient evaluation. I discussed with the patient/guardian the need to see the strategic buyer for further evaluation of the symptoms. ED course: Recommend outpt colonoscopy given young age and repeated GI issues, no acute findings on CT scan/blood, feels better. . 08/24 08:59 Order name: Basic Metabolic Panel rn 08/24 08:59 Order name: CBC with Diff rn 08/24 08:59 Order name: Hepatic Function rn 08/24 08:59 Order name: Lipase rn 08/24 09:00 Order name: Basic Metabolic Panel; Complete Time: 10:12 EDMS 08/24 08:59 Order name: IV Saline Lock; Complete Time: 09:00 rn 08/24 08:59 Order name: Labs collected and sent; Complete Time: 09:00 rn 08/24 08:59 Order name: Glucose Level; Complete Time: 09:00 rn 08/24 08:59 Order name: CT Abd/Pelvis - W/Contrast; Complete Time: 11:01 rn 08/24 09:00 Order name: CBC with Automated Diff; Complete Time: 10:12 EDMS 08/24 09:00 Order name: Liver (Hepatic) Function; Complete Time: 10:12 EDMS 08/24 09:00 Order name: Lipase; Complete Time: 10:12 EDMS Administered Medications: No medications were administered Point of Care Testing: Blood Glucose: 09:00 Blood Glucose: 101 mg/dL; ph Ranges: Critical Glucose Levels:Adult <50 mg/dl or >400 mg/dl <40 mg/dl or >180 mg/dl Disposition: 08/24/17 11:10 Discharged to Home. Impression: Unspecified abdominal pain. - Condition is Stable. - Discharge Instructions: Abdominal Pain, Adult. - Medication Reconciliation Form, Thank You Letter, Antibiotic Education, Prescription Opioid Use, Work release form form. - Follow up: Private Physician; When: As needed; Reason: Recheck today's complaints, Re-evaluation by your physician. - Problem is new. - Symptoms have improved. Signatures: Dispatcher [employer] EDGideon Cid MD MD rn DundeeShanell RN RN ph Corrections: (The following items were deleted from the chart) 11:26 11:10 08/24/2017 11:10 Discharged to Home. Impression: Unspecified abdominal pain. ph Condition is Stable. Forms are Medication Reconciliation Form, Thank You Letter, Antibiotic Education, Prescription Opioid Use. Follow up: Private Physician; When: As needed; Reason: Recheck today's complaints, Re-evaluation by your physician. Problem is new. Symptoms have improved. rn
--- NOTE | 2017-08-24 11:10 | ER ---
Nurse's Notes [facility] Name: Stephen Ribeiro Age: 31 yrs Sex: Male : 1985 Arrival Date: 08/24/2017 Time: 08:34 Bed 7 Private MD: Diagnosis: Unspecified abdominal pain Presentation: 08/24 08:51 Presenting complaint: Patient states: " My stomach started hurting me yesterday. I've ph had diverticulitis before and I wanted to see if I have it again." Pt reports upper abdominal pain, denies N/V/D but reports more frequent bowel movements. Transition of care: patient was not received from another setting of care. Onset of symptoms was August 24, 2017. Risk Assessment: Do you want to hurt yourself or someone else? Patient reports no desire to harm self or others. Initial Sepsis Screen: Does the patient meet any 2 criteria? No. Patient's initial sepsis screen is negative. Does the patient have a suspected source of infection? No. Patient's initial sepsis screen is negative. Care prior to arrival: None. 08:51 Method Of Arrival: Ambulatory ph 08:51 Acuity: TRISH 3 ph Historical: - Allergies: 08:55 PENICILLINS; ph - Home Meds: 08:55 Depakote 500 mg Oral TbEC 2 tabs 2 times per day [Active]; ph - PMHx: 08:55 Seizures; Diverticulitis; ph - PSHx: 08:55 None; ph - Immunization history:: Adult Immunizations unknown. - Social history:: Smoking status: Patient uses tobacco products, smokes one pack cigarettes per day. - Ebola Screening: : No symptoms or risks identified at this time. - Family history:: not pertinent. - Hospitalizations: : No recent hospitalization is reported. Screenin:59 Abuse screen: Denies threats or abuse. Denies injuries from another. Nutritional ph screening: No deficits noted. Tuberculosis screening: No symptoms or risk factors identified. Fall Risk None identified. Assessment: 08:56 General: Appears in no apparent distress. comfortable, well groomed, Behavior is calm, ph cooperative, appropriate for age, Denies fever, feeling ill. Pain: Complains of pain in right upper quadrant and left upper quadrant Pain currently is 5 out of 10 on a pain scale. Neuro: Level of Consciousness is awake, alert, obeys commands, Oriented to person, place, time, situation. Cardiovascular: Capillary refill < 3 seconds Patient's skin is warm and dry. Respiratory: Airway is patent Respiratory effort is even, unlabored, Respiratory pattern is regular, symmetrical. GI: Abdomen is round non-distended, Bowel sounds present X 4 quads. Abd is soft X 4 quads Abdomen is tender to palpation in right upper quadrant and left upper quadrant Reports upper abdominal pain, frequent BMs Patient currently denies diarrhea, nausea, vomiting. Derm: Skin is intact, is healthy with good turgor, Skin is pink, warm \\T\\ dry. Musculoskeletal: Circulation, motion, and sensation intact. Range of motion: intact in all extremities. 10:00 Reassessment: Patient appears in no apparent distress at this time. Patient and/or ph family updated on plan of care and expected duration. Pain level reassessed. Patient is alert, oriented x 3, equal unlabored respirations, skin warm/dry/pink. Pt resting quietly, awaiting lab results and CT scan. 11:00 Reassessment: Patient appears in no apparent distress at this time. Patient and/or ph family updated on plan of care and expected duration. Pain level reassessed. Patient is alert, oriented x 3, equal unlabored respirations, skin warm/dry/pink. Pt resting quietly, SO at bedside. Vital Signs: 08:53 BP 116 / 83; Pulse 87; Resp 18; Temp 98.0; Pulse Ox 99% on R/A; Weight 90.72 kg; Height ph 5 ft. 10 in. (177.80 cm); Pain 5/10; 09:27 BP 118 / 87; Pulse 71; Resp 18; Pulse Ox 99% on R/A; dh3 11:01 BP 111 / 78; Pulse 70; Resp 18; Pulse Ox 98% on R/A; ph 11:26 Temp 97.5(TE); ph 08:53 Body Mass Index 28.70 (90.72 kg, 177.80 cm) ph ED Course: 08:34 Patient arrived in ED. as 08:50 Gideon De Luna MD is Attending Physician. rn 08:53 Triage completed. ph 08:56 Arm band placed on. ph 08:59 Patient has correct armband on for positive identification. Bed in low position. Call light in reach. Side rails up X 1. Pulse ox on. NIBP on. 09:00 Inserted saline lock: 20 gauge in right antecubital area, using aseptic technique. ph 09:07 Initial lab(s) drawn, by tx, sent to lab. [facility] 10:32 CT Abd/Pelvis - W/Contrast In Process Unspecified. EDMS 10:59 Shanell Kaur, RN is Primary Nurse. ph 11:24 No provider procedures requiring assistance completed. IV discontinued, intact, ph bleeding controlled, No redness/swelling at site. Pressure dressing applied. Administered Medications: No medications were administered Point of Care Testing: Blood Glucose: 09:00 Blood Glucose: 101 mg/dL; ph Ranges: Outcome: 11:10 Discharge ordered by . rn 11:25 Discharged to home ambulatory. ph 11:25 Condition: good 11:25 Discharge instructions given to patient, Instructed on discharge instructions, follow up and referral plans. Demonstrated understanding of instructions, follow-up care. 11:26 Patient left the ED. ph Signatures: Dispatcher [employer] Thelma Walters Roman, MD MD rn Hall, Patricia, GOPAL RN Mariana Jainnna [facility]
[2017-08-24 11:33] VITALS: BP 111/78; O2SAT 98
[2017-08-24 11:34] VITALS: TEMP 97.5
== END 2017-08-24 11:26 | disposition home or self-care (01) ==
LOC: ER 08:33
DX: R10.9 Unspecified abdominal pain (principal); G40.909 Epilepsy, unspecified, not intractable, without status epilepticus; F17.210 Nicotine dependence, cigarettes, uncomplicated; Z88.0 Allergy status to penicillin
CPT/HCPCS: 36415; 74177; 80048; 80076; 82962; 83690; 85025; 99284; Q9967

== ENCOUNTER 2018-09-27 15:14 | Emergency (ER) | payer OTHER, SELFPAY ==
[2018-09-27 15:46] LABS: Absolute Lymphocytes (CBC) 6.1 K/uL (0.7-4.9); Basophils % 1.3 % (0-1.3); Lymphocytes % 44.8 % (15.3-44.8); MPV 8.6 fL (7.6-11.3); RBC Red Blood Cell Count 5.15 M/uL (4.33-5.43)
[2018-09-27 15:49] LABS: Protime INR 0.96
[2018-09-27 16:14] LABS: Platelet Estimate ADEQ
[2018-09-27 16:14] LABS: Urine Blood TRACE (NEG); Urine Glucose NEGATIVE (NEG); Urine Protein 1+ (NEG); Urine Specific Gravity >1.030 (1.005-1.030)
[2018-09-27 16:15] LABS: Barbiturates NEGATIVE (NEGATIVE); Benzodiazepines NEGATIVE (NEGATIVE); Cocaine NEGATIVE (NEGATIVE); METHAMPHETAM NEGATIVE (NEGATIVE); Methadone NEGATIVE (NEGATIVE); Opiates NEGATIVE (NEGATIVE); Phencyclidine NEGATIVE (NEGATIVE); THC Cannibis POSITIVE (NEGATIVE)
[2018-09-27 16:15] LABS: Blood Morphology Comment NOT SEEN (NOT SEEN)
--- NOTE | 2018-09-27 16:25 | EKG ---
Test Date: 2018-09-27 Test Time: 15:20:23 [employer]: BARRY MEASUREMENT RESULTS: Intervals: Rate: 118 ND: 138 QRSD: 90 QT: 348 QTc: 487 [place]: P: 71 ND: 138 QRS: 71 T: -42 INTERPRETIVE STATEMENTS: Sinus tachycardia RSR' or QR pattern in V1 suggests right ventricular conduction delay Possible Lateral infarct, age undetermined Cannot rule out Inferior infarct, age undetermined Abnormal ECG Compared to ECG 06/15/2017 17:45:11 Sinus rhythm no longer present T-wave abnormality no longer present Possible ischemia no longer present Myocardial infarct finding still present Electronically Signed On 09-27-18 16:25:12 CDT by Grady Goodrich
[2018-09-27 17:06] LABS: ALT/SGPT 34 U/L (12-78); AST/SGOT 23 U/L (15-37); Albumin 3.6 g/dL (3.4-5.0); Alkaline Phosphatase 54 U/L (45-117); BUN Blood Urea Nitrogen 13 mg/dL (7-18); Bicarbonate 21 mmol/L (21-32); Bilirubin Direct < 0.1 mg/dL (0-0.2); Bilirubin Total 0.3 mg/dL (0.2-1.0); Glucose Level 126 mg/dL (74-106); Protein, Total 7.7 g/dL (6.4-8.2); Sodium Level 139 mmol/L (136-145)
--- NOTE | 2018-09-27 17:09 | EDPHYS ---
Physician Documentation [facility] Name: Stephen Ribeiro Age: 32 yrs Sex: Male : 1985 Arrival Date: 09/27/2018 Time: 15:22 Bed 2 Private MD: ED Physician Corey Landrum HPI: 09/28 09:18 This 32 yrs old Male presents to ER via EMS with complaints of Seizure. kdr 09:18 The patient presents after having a single isolated seizure, that lasted an unknown kdr period of time, the episode(s) was witnessed, by a bystander. Character of seizure(s): Unknown. Seizure onset: just prior to arrival. Context: the seizure(s) was witnessed, by a bystander, No details available. Seizure Hx: Long standing history - has not been taking his medications on a regular basis. Associated injury: The patient did not suffer any apparent associated injury. EMS care: none. Current symptoms: Currently, the patient is not experiencing any symptoms, the patient feels back to baseline. The patient has experienced similar episodes in the past, multiple times. The patient has not recently seen a physician. Historical: - Allergies: 09/27 15:27 PENICILLINS; sv - Home Meds: 17:11 Depakote 500 mg Oral TbEC 2 tabs 2 times per day [Active]; sg - PMHx: 15:27 Diverticulitis; Seizures; sv - PSHx: 15:27 None; sv - Immunization history:: Adult Immunizations up to date. - Social history:: Smoking status: Patient/guardian denies using tobacco, Patient uses street drugs, marijuana. - Ebola Screening: : No symptoms or risks identified at this time. ROS: 09/28 09:18 Constitutional: Negative for fever, chills, and weight loss, Eyes: Negative for injury, kdr pain, redness, and discharge, ENT: Negative for injury, pain, and discharge, Neck: Negative for injury, pain, and swelling, Cardiovascular: Negative for chest pain, palpitations, and edema, Respiratory: Negative for shortness of breath, cough, wheezing, and pleuritic chest pain, Abdomen/GI: Negative for abdominal pain, nausea, vomiting, diarrhea, and constipation, Back: Negative for injury and pain, : Negative for injury, bleeding, discharge, and swelling, MS/Extremity: Negative for injury and deformity, Skin: Negative for injury, rash, and discoloration, Psych: Negative for depression, anxiety, suicide ideation, homicidal ideation, and hallucinations, Allergy/Immunology: Negative for hives, rash, and allergies, Endocrine: Negative for neck swelling, polydipsia, polyuria, polyphagia, and marked weight changes, Hematologic/Lymphatic: Negative for swollen nodes, abnormal bleeding, and unusual bruising. Neuro: Positive for Exam: 09:18 Constitutional: This is a well developed, well nourished patient who is awake, alert, kdr and in no acute distress. Head/Face: Normocephalic, atraumatic. Eyes: Pupils equal round and reactive to light, extra-ocular motions intact. Lids and lashes normal. Conjunctiva and sclera are non-icteric and not injected. Cornea within normal limits. Periorbital areas with no swelling, redness, or edema. Neck: Trachea midline, no thyromegaly or masses palpated, and no cervical lymphadenopathy. Supple, full range of motion without nuchal rigidity, or vertebral point tenderness. No Meningismus. Chest/axilla: Normal chest wall appearance and motion. Nontender with no deformity. No lesions are appreciated. Cardiovascular: Regular rate and rhythm with a normal S1 and S2. No gallops, murmurs, or rubs. Normal PMI, no JVD. No pulse deficits. Respiratory: Lungs have equal breath sounds bilaterally, clear to auscultation and percussion. No rales, rhonchi or wheezes noted. No increased work of breathing, no retractions or nasal flaring. Abdomen/GI: Soft, non-tender, with normal bowel sounds. No distension or tympany. No guarding or rebound. No evidence of tenderness throughout. Back: No spinal tenderness. No costovertebral tenderness. Full range of motion. Skin: Warm, dry with normal turgor. Normal color with no rashes, no lesions, and no evidence of cellulitis. MS/ Extremity: Pulses equal, no cyanosis. Neurovascular intact. Full, normal range of motion. Neuro: Awake and alert, GCS 15, oriented to person, place, time, and situation. Cranial nerves II-XII grossly intact. Motor strength 5/5 in all extremities. Sensory grossly intact. Cerebellar exam normal. Normal gait. Psych: Awake, alert, with orientation to person, place and time. Behavior, mood, and affect are within normal limits. Vital Signs: 09/27 15:16 BP 126 / 79; Pulse 121; Resp 18; Temp 97.8(O); Pulse Ox 97% on R/A; Weight 90 kg; sv Height 5 ft. 10 in. (177.80 cm); Pain 0/10; 16:08 BP 120 / 85; Pulse 92 MON; Resp 19; Pulse Ox 96% on R/A; sv 16:56 BP 107 / 78; Pulse 84; Resp 18; Pulse Ox 98% ; sv 15:16 Body Mass Index 28.47 (90.00 kg, 177.80 cm) sv 16:08 Sinus tachycardia sv [place] Coma Score: 15:15 Eye Response: spontaneous(4). Verbal Response: oriented(5). Motor Response: obeys sv commands(6). Total: 15. MDM: 17:08 Patient medically screened. kdr 09/28 09:18 Data reviewed: vital signs, nurses notes, lab test result(s). Counseling: I had a kdr detailed discussion with the patient and/or guardian regarding: the historical points, exam findings, and any diagnostic results supporting the discharge/admit diagnosis, lab results, radiology results, the need for outpatient follow up. 09/27 15:29 Order name: Acetaminophen sv 09/27 15:29 Order name: Basic Metabolic Panel sv 09/27 15:29 Order name: CBC with Diff; Complete Time: 17:05 sv 09/27 15:29 Order name: ETOH Level; Complete Time: 17:06 sv 09/27 15:29 Order name: Hepatic Function sv 09/27 15:29 Order name: PT-INR; Complete Time: 17:06 sv 09/27 15:29 Order name: Ptt, Activated; Complete Time: 17:06 sv 09/27 15:29 Order name: Salicylate; Complete Time: 17:06 sv 09/27 15:29 Order name: Urine Drug Screen; Complete Time: 17:05 sv 09/27 15:37 Order name: Depakote; Complete Time: 17:05 kdr 09/27 15:49 Order name: Manual Differential; Complete Time: 17:05 EDMS 09/27 15:50 Order name: Urine Dipstick--Ancillary (enter results); Complete Time: 17:05 ms 08/08 15:29 Order name: EKG; Complete Time: 15:32 sv 08 15:29 Order name: EKG - Nurse/Tech; Complete Time: 15:29 sv 08 15:29 Order name: IV Saline Lock; Complete Time: 15:29 sv 08 15:29 Order name: Labs collected and sent; Complete Time: 15:29 sv 08 15:29 Order name: Urine Dipstick-Ancillary (obtain specimen); Complete Time: 15:44 sv Administered Medications: 09/27 15:50 Drug: NS 0.9% 1000 ml Route: IV; Rate: 1 bolus; Site: right antecubital; sv 17:00 Follow up: Response: No adverse reaction; IV Status: Completed infusion; IV Intake: sv 1000ml 17:33 Not Given (Physician Discretion): Depacon 500 mg 5 ml IV at calculated rate once sv 17:33 Drug: Depakote 1000 mg Route: PO; sv 17:33 Follow up: Response: Medication administered at discharge. sv Disposition: 09/27/18 17:08 Discharged to Home. Impression: Epilepsy and recurrent seizures. - Condition is Stable. - Discharge Instructions: Seizure, Adult, [id number]. - Prescriptions for Depakote 500 mg Oral Tablet, Delayed Release (E.C.) - take 2 tablet by ORAL route every 12 hours; 60 tablet. - Medication Reconciliation Form, Thank You Letter form. - Follow up: Private Physician; When: 2 - 3 days; Reason: If symptoms return, Further diagnostic work-up, Recheck today's complaints, Continuance of care, Re-evaluation by your physician. - Problem is an acute exacerbation. - Symptoms are resolved. Signatures: Dispatcher [employer] Ivania Collazo RN RN Misael Huynh RN RN Corey Landrum MD MD [facility] Corrections: (The following items were deleted from the chart) 17:34 17:08 09/27/2018 17:08 Discharged to Home. Impression: Epilepsy and recurrent seizures. sv Condition is Stable. Forms are Medication Reconciliation Form, Thank You Letter, Antibiotic Education, Prescription Opioid Use. Follow up: Private Physician; When: 2 - 3 days; Reason: If symptoms return, Further diagnostic work-up, Recheck today's complaints, Continuance of care, Re-evaluation by your physician. Problem is an acute exacerbation. Symptoms are resolved. kdr
--- NOTE | 2018-09-27 17:09 | ER ---
Nurse's Notes [facility] Name: Stephen Ribeiro Age: 32 yrs Sex: Male : 1985 Arrival Date: 09/27/2018 Time: 15:22 Bed 2 Private MD: Diagnosis: Epilepsy and recurrent seizures Presentation: 09/27 15:12 Presenting complaint: EMS states: witnessed seizure by cable man at his house. Pt was sv standing outside for about 2 mins and both his arms went in the air and started turning around and started having a seizure. BP 154/94 HR-130s axillary temp 98. Transition of care: patient was not received from another setting of care. Onset of symptoms was September 27, 2018. Risk Assessment: Do you want to hurt yourself or someone else? Patient reports no desire to harm self or others. Initial Sepsis Screen: Does the patient meet any 2 criteria? HR > 90 bpm. No. Patient's initial sepsis screen is negative. Does the patient have a suspected source of infection? No. Patient's initial sepsis screen is negative. Care prior to arrival: IV initiated. 20 GA, in the right antecubital area, Glucose check: 217. 15:12 Method Of Arrival: EMS: [facility] sv 15:12 Acuity: TRISH 2 sv Triage Assessment: 15:15 General: Appears in no apparent distress. well developed, Behavior is appropriate for sv age, restless. Pain: Denies pain. Neuro: Level of Consciousness is awake, alert, obeys commands, Oriented to person, place, time, situation, Moves all extremities. Full function Speech is normal. Cardiovascular: Rhythm is sinus tachycardia. Respiratory: Airway is patent Respiratory effort is even, unlabored, Respiratory pattern is regular, symmetrical. Derm: Skin is clammy, Skin is normal, Skin temperature is cool. Musculoskeletal: Range of motion: intact in all extremities. Historical: - Allergies: 15:27 PENICILLINS; sv - Home Meds: 17:11 Depakote 500 mg Oral TbEC 2 tabs 2 times per day [Active]; sg - PMHx: 15:27 Diverticulitis; Seizures; sv - PSHx: 15:27 None; sv - Immunization history:: Adult Immunizations up to date. - Social history:: Smoking status: Patient/guardian denies using tobacco, Patient uses street drugs, marijuana. - Ebola Screening: : No symptoms or risks identified at this time. Screenin:30 Abuse screen: Denies threats or abuse. Denies injuries from another. Nutritional sg screening: No deficits noted. Tuberculosis screening: No symptoms or risk factors identified. Never had TB. Fall Risk None identified. Assessment: 15:36 Reassessment: pt requesting to use the restroom, pt given a urinal to use in the bed sg again, pt requesting to walk to the restroom. 15:38 Reassessment: pt advised not to ambulate at this time, pt states " Dinora had seizures my sg whole life, I can walk tot he bathroom. I will take all this stuff off of me and leave." pt ambulatory to ER restroom with standby assist, pt ambulatory with no problems at this time. 16:09 Reassessment: Patient appears in no apparent distress at this time. No changes from sv previously documented assessment. Patient and/or family updated on plan of care and expected duration. Pain level reassessed. Patient is alert, oriented x 3, equal unlabored respirations, skin warm/dry/pink. 16:56 Reassessment: Patient appears in no apparent distress at this time. Patient and/or sv family updated on plan of care and expected duration. Pain level reassessed. Patient is alert, oriented x 3, equal unlabored respirations, skin warm/dry/pink. Vital Signs: 15:16 BP 126 / 79; Pulse 121; Resp 18; Temp 97.8(O); Pulse Ox 97% on R/A; Weight 90 kg; sv Height 5 ft. 10 in. (177.80 cm); Pain 0/10; 16:08 BP 120 / 85; Pulse 92 MON; Resp 19; Pulse Ox 96% on R/A; sv 16:56 BP 107 / 78; Pulse 84; Resp 18; Pulse Ox 98% ; sv 15:16 Body Mass Index 28.47 (90.00 kg, 177.80 cm) sv 16:08 Sinus tachycardia sv [place] Coma Score: 15:15 Eye Response: spontaneous(4). Verbal Response: oriented(5). Motor Response: obeys sv commands(6). Total: 15. ED Course: 15:12 Initial lab(s) drawn, by me, sent to lab. Maintain EMS IV. Dressing intact. Good blood sv return noted. Site clean \\T\\ dry. Gauge \\T\\ site: 20G AC. 15:20 Patient has correct armband on for positive identification. Placed in gown. Bed in low sv position. Call light in reach. Side rails up X2. Seizure precautions initiated. alarm security or surveillance monitor on. Pulse ox on. NIBP on. Door closed. Head of bed elevated. 15:22 Patient arrived in ED. sv 15:22 Ivania England RN is Primary Nurse. sv 15:24 Corey Landrum MD is Attending Physician. kdr 15:26 Triage completed. sv 15:28 Arm band placed on. sv 16:34 Lab(s) recollected, by me, sent to lab. sv 17:00 Awaiting disposition, Awaiting re-evaluation by ER provider. sv 17:34 No provider procedures requiring assistance completed. IV discontinued, intact, sv bleeding controlled, No redness/swelling at site. Pressure dressing applied. Administered Medications: 15:50 Drug: NS 0.9% 1000 ml Route: IV; Rate: 1 bolus; Site: right antecubital; sv 17:00 Follow up: Response: No adverse reaction; IV Status: Completed infusion; IV Intake: sv 1000ml 17:33 Not Given (Physician Discretion): Depacon 500 mg 5 ml IV at calculated rate once sv 17:33 Drug: Depakote 1000 mg Route: PO; sv 17:33 Follow up: Response: Medication administered at discharge. sv Intake: 17:00 IV: 1000ml; Total: 1000ml. sv Outcome: 17:08 Discharge ordered by MD. kdr 17:34 Discharged to home ambulatory, with family. sv 17:34 Condition: stable 17:34 Discharge instructions given to patient, Instructed on discharge instructions, follow up and referral plans. medication usage, Demonstrated understanding of instructions, follow-up care, medications, Prescriptions given X 1. 17:34 Patient left the ED. sv Signatures: Ivania England RN RN sv Gay, Steven, RN RN Corey Landrum MD MD kdr Corrections: (The following items were deleted from the chart) 15:28 15:16 BP 126 / 79; Pulse 121bpm; Resp 18bpm; Pulse Ox 97% RA; Temp 97.8F Oral; Pain sv 0/10; sv 15:30 15:12 Presenting complaint: EMS states: witnessed seizure by cable man at his house. Pt sv was standing outside for about 2 mins. BP 154/94 HR-130s axillary temp 98. sv
[2018-09-27] MEDS ORDERED: DIVALPROEX DR 250 MG TAB PO ONE (17:14)
[2018-09-27 18:03] VITALS: TEMP 97.8
[2018-09-27 18:09] VITALS: BP 107/78; O2SAT 98
== END 2018-09-27 17:34 | disposition home or self-care (01) ==
LOC: ER 15:14
DX: G40.802 Other epilepsy, not intractable, without status epilepticus (principal); Z88.0 Allergy status to penicillin
CPT/HCPCS: 36415; 80048; 80076; 80164; 80307; 80320; 80329; 81003; 82962; 85025; 85610; 85730; 93005; 96360; 99284

== ENCOUNTER 2019-02-11 10:39 | Emergency (ER) | payer OTHER, SELFPAY ==
[2019-02-11] MEDS ORDERED: NA CHLORIDE 0.9% 2,000 ML ONE (10:53)
[2019-02-11] MEDS ORDERED: KETOROLAC 30 MG/ML INJ ONE (12:08)
[2019-02-11] MEDS ORDERED: MORPHINE 4 MG/ML SYR ONE (12:11)
[2019-02-11] MEDS ORDERED: ONDANSETRON 4 MG/2 ML VIAL ONE (12:11)
[2019-02-11 12:34] LABS: Albumin 3.6 g/dL (3.4-5.0); Bilirubin Total 0.3 mg/dL (0.2-1.0); Potassium 4.3 mmol/L (3.5-5.1); Protein, Total 7.8 g/dL (6.4-8.2)
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
[2019-02-11] MEDS ORDERED: DIVALPROEX NA 125 MG CAP PO ONE (13:00)
[2019-02-11 13:31] VITALS: O2SAT 99
[2019-02-11 13:33] VITALS: BP 131/78; TEMP 98
--- NOTE | 2019-02-14 08:15 | EKG ---
Test Date: 2019-02-11 Test Time: 10:45:32 Financial Accountant: BARRY MEASUREMENT RESULTS: Intervals: Rate: 107 [place]: 140 QRSD: 104 QT: 368 QTc: 491 [place]: P: 76 [place]: 140 QRS: 71 T: -45 INTERPRETIVE STATEMENTS: Sinus tachycardia Inferior-posterior infarct, age undetermined ST & T wave abnormality, consider lateral ischemia Abnormal ECG Compared to ECG 09/27/2018 15:20:23 ST (T wave) deviation now present Possible ischemia now present Myocardial infarct finding still present Electronically Signed On 02-14-19 08:11:00 BOTTLE FILLER by Grady Goodrich
== END 2019-02-11 13:23 | disposition home or self-care (01) ==
LOC: ER 10:39
DX: G40.802 Other epilepsy, not intractable, without status epilepticus (principal); F17.210 Nicotine dependence, cigarettes, uncomplicated; Z88.0 Allergy status to penicillin
CPT/HCPCS: 36415; 80053; 80164; 93005; 96361; 96374; 96375; 99284; J2405; J7030

== ENCOUNTER 2019-04-08 16:51 | Emergency (ER) | payer SELFPAY ==
[2019-04-08] MEDS ORDERED: HYDROCODONE/CHLORPHEN 5 ML/OSYR ONE (17:51)
--- NOTE | 2019-04-08 18:13 | RAD REPORT ---
EXAM DESCRIPTION: RAD - Chest Pa And Lat (2 Views) - 04/08/2019 6:00 pm CLINICAL HISTORY: COUGH Chest pain. COMPARISON: Chest Pa And Lat (2 Views) dated 06/17/2017; Chest Pa And Lat (2 Views) dated 06/15/2017; Chest Pa And Lat (2 Views) dated 04/05/2017; Chest Single View dated 03/30/2017 FINDINGS: The lungs are clear. The heart is normal in size. No displaced fractures. IMPRESSION: No acute or concerning finding suspected.
--- NOTE | 2019-04-08 18:41 | ER ---
Nurse's Notes [facility] Name: Stephen Ribeiro Age: 33 yrs Sex: Male : 1985 Arrival Date: 04/08/2019 Time: 16:53 Bed 14 Private MD: Diagnosis: Acute upper respiratory infection, unspecified Presentation: 04/08 17:05 Presenting complaint: Nonproductive cough x 1 week. Denies pain/fever. Transition of care: patient was not received from another setting of care. Onset of symptoms was April 02, 2019. Risk Assessment: Do you want to hurt yourself or someone else? Patient reports no desire to harm self or others. Initial Sepsis Screen: Does the patient meet any 2 criteria? No. Patient's initial sepsis screen is negative. Does the patient have a suspected source of infection? No. Patient's initial sepsis screen is negative. Care prior to arrival: None. 17:05 Method Of Arrival: Ambulatory 17:05 Acuity: TRISH 4 hb Triage Assessment: 17:05 General: Appears in no apparent distress. comfortable, Behavior is calm, cooperative, bp appropriate for age. Pain: Denies pain. EENT: No deficits noted. Neuro: No deficits noted. Cardiovascular: No deficits noted. Respiratory: Reports cough that is. GI: No signs and/or symptoms were reported involving the gastrointestinal system. : No signs and/or symptoms were reported regarding the genitourinary system. Derm: No deficits noted. Musculoskeletal: No deficits noted. Historical: - Allergies: 17:06 PENICILLINS; hb - Home Meds: 17:06 Depakote 500 mg Oral TbEC 2 tabs 2 times per day [Active]; hb - PMHx: 17:06 Diverticulitis; Seizures; hb - PSHx: 17:06 None; hb - Immunization history:: Adult Immunizations up to date. - Coronavirus screen:: The patient has NOT traveled to [place] in the past 14 days. The patient has NOT had contact with known/suspected case of Coronavirus? Proceed with normal triage procedures. - Social history:: Smoking status: Patient reports the use of cigarette tobacco products, smokes one pack cigarettes per day. - Ebola Screening: : No symptoms or risks identified at this time. Screenin:05 Abuse screen: Denies threats or abuse. Denies injuries from another. Nutritional bp screening: No deficits noted. Tuberculosis screening: No symptoms or risk factors identified. Fall Risk None identified. Assessment: 17:05 General: SEE TRIAGE NOTE. bp 18:08 Reassessment: PT RETURNED FROM XRAY. NO FURTHER COUGHING AFTER MEDICATION. SWAB RESULTS bp PENDING. 18:52 Reassessment: PT D/C HOME AMBULATORY, DX WITH VIRAL URI. bp Vital Signs: 17:06 BP 148 / 86; Pulse 97; Resp 16; Temp 97.9; Pulse Ox 98% on R/A; Weight 90.72 kg; Height hb 5 ft. 10 in. (177.80 cm); Pain 0/10; 18:08 BP 111 / 77; Pulse 86; Resp 17; Pulse Ox 96% ; bp 17:06 Body Mass Index 28.70 (90.72 kg, 177.80 cm) hb ED Course: 16:53 Patient arrived in ED. ag5 17:05 Triage completed. hb 17:05 Patient has correct armband on for positive identification. Bed in low position. Call bp light in reach. Side rails up X2. Adult w/ patient. 17:06 Arm band placed on. hb 17:07 Gonzalez Calixto, RN is Primary Nurse. bp 17:13 Conrado Irizarry NP is PHCP. pm1 17:13 Fran Allen MD is Attending Physician. pm1 17:54 Strep Sent. bp 17:54 Flu Sent. bp 17:54 Chest Pa And Lat (2 Views) XRAY Sent. bp 18:53 No provider procedures requiring assistance completed. Patient did not have IV access bp during this emergency room visit. Administered Medications: 17:54 Drug: Tussionex Pennkinetic ER 5 ml Route: PO; bp 18:51 Follow up: Response: Marked relief of symptoms bp Outcome: 18:40 Discharge ordered by MD. pm1 18:53 Discharged to home ambulatory, with family. bp 18:53 Condition: stable 18:53 Discharge instructions given to patient, Instructed on discharge instructions, follow up and referral plans. medication usage, Demonstrated understanding of instructions, follow-up care, medications, Prescriptions given X 1. 18:53 Patient left the ED. bp Signatures: Conrado Irizarry NP RESORT HOUSEKEEPER pm1 Krupa Stark RN RN Gonzalez Calixto RN RN bp Rafael Ramos ag5
--- NOTE | 2019-04-08 18:41 | EDPHYS ---
Physician Documentation [facility] Name: Stephen Ribeiro Age: 33 yrs Sex: Male : 1985 Arrival Date: 04/08/2019 Time: 16:53 Bed 14 Private MD: ED Physician Fran Allen HPI: 04/08 18:33 This 33 yrs old Male presents to ER via Ambulatory with complaints of Cough. pm1 18:33 The patient or guardian reports cough. Onset: The symptoms/episode began/occurred 1 pm1 week(s) ago. Severity of symptoms: in the emergency department the symptoms are actually worse. Modifying factors: The symptoms are alleviated by nothing, has been taking OTC cough medications the symptoms are aggravated by nothing. Associated signs and symptoms: Pertinent positives: sore throat, posttussive vomiting, Pertinent negatives: chest pain, fever, shortness of breath. The patient has not recently seen a physician. Historical: - Allergies: 17:06 PENICILLINS; hb - Home Meds: 17:06 Depakote 500 mg Oral TbEC 2 tabs 2 times per day [Active]; hb - PMHx: 17:06 Diverticulitis; Seizures; hb - PSHx: 17:06 None; hb - Immunization history:: Adult Immunizations up to date. - Coronavirus screen:: The patient has NOT traveled to [place] in the past 14 days. The patient has NOT had contact with known/suspected case of Coronavirus? Proceed with normal triage procedures. - Social history:: Smoking status: Patient reports the use of cigarette tobacco products, smokes one pack cigarettes per day. - Ebola Screening: : No symptoms or risks identified at this time. ROS: 18:33 Constitutional: Negative for fever, chills, and weight loss, Eyes: Negative for injury, pm1 pain, redness, and discharge, Neck: Negative for injury, pain, and swelling. 18:33 Cardiovascular: Negative for chest pain, palpitations, and edema. 18:33 Abdomen/GI: Negative for abdominal pain, nausea, diarrhea, and constipation, Positve for postussive vomiting Back: Negative for injury and pain, MS/Extremity: Negative for injury and deformity, Skin: Negative for injury, rash, and discoloration. 18:33 Neuro: Negative for headache, weakness, numbness, tingling, and seizure. 18:33 ENT: Positive for sore throat, Negative for ear pain, rhinorrhea. 18:33 Respiratory: Positive for cough, Negative for shortness of breath, wheezing. Exam: 18:33 Constitutional: This is a well developed, well nourished patient who is awake, alert, pm1 and in no acute distress. Head/Face: Normocephalic, atraumatic. Eyes: Pupils equal round and reactive to light, extra-ocular motions intact. Lids and lashes normal. Conjunctiva and sclera are non-icteric and not injected. Cornea within normal limits. Periorbital areas with no swelling, redness, or edema. ENT: Nares patent. No nasal discharge, no septal abnormalities noted. Tympanic membranes are normal and external auditory canals are clear. Oropharynx with no redness, swelling, or masses, exudates, or evidence of obstruction, uvula midline. Mucous membranes moist. Neck: Trachea midline, no thyromegaly or masses palpated, and no cervical lymphadenopathy. Supple, full range of motion without nuchal rigidity, or vertebral point tenderness. No Meningismus. Chest/axilla: Normal chest wall appearance and motion. Nontender with no deformity. No lesions are appreciated. Cardiovascular: Regular rate and rhythm with a normal S1 and S2. No gallops, murmurs, or rubs. Respiratory: Lungs have equal breath sounds bilaterally, clear to auscultation and percussion. No rales, rhonchi or wheezes noted. No increased work of breathing, no retractions or nasal flaring. Abdomen/GI: Soft, non-tender, with normal bowel sounds. No distension or tympany. No guarding or rebound. No evidence of tenderness throughout. Back: No spinal tenderness. No costovertebral tenderness. Full range of motion. Skin: Warm, dry with normal turgor. Normal color with no rashes, no lesions, and no evidence of cellulitis. MS/ Extremity: Pulses equal, no cyanosis. Neurovascular intact. Full, normal range of motion. 18:33 Neuro: Orientation: is normal, Gait: is steady, at a normal pace, without difficulty. Vital Signs: 17:06 BP 148 / 86; Pulse 97; Resp 16; Temp 97.9; Pulse Ox 98% on R/A; Weight 90.72 kg; Height hb 5 ft. 10 in. (177.80 cm); Pain 0/10; 18:08 BP 111 / 77; Pulse 86; Resp 17; Pulse Ox 96% ; bp 17:06 Body Mass Index 28.70 (90.72 kg, 177.80 cm) hb MDM: 17:13 Patient medically screened. pm1 18:39 Data reviewed: vital signs. Data interpreted: Pulse oximetry: on room air is 96 %. pm1 Interpretation: normal. 18:39 Counseling: I had a detailed discussion with the patient and/or guardian regarding: the pm1 historical points, exam findings, and any diagnostic results supporting the discharge/admit diagnosis, lab results, radiology results, the need for outpatient follow up, to return to the emergency department if symptoms worsen or persist or if there are any questions or concerns that arise at home. 04/08 17:43 Order name: Flu pm1 04/08 17:43 Order name: Strep pm1 04/08 17:43 Order name: Chest Pa And Lat (2 Views) XRAY pm1 04/08 18:08 Order name: Group A Streptococcus Rapid Sc; Complete Time: 18:08 EDMS 04/08 18:38 Order name: Influenza Screen (A ; Complete Time: 18:39 EDMS Administered Medications: 17:54 Drug: Tussionex Pennkinetic ER 5 ml Route: PO; bp 18:51 Follow up: Response: Marked relief of symptoms bp Disposition: 04/09 11:10 Co-signature as Attending Physician, Fran Allen MD I agree with the assessment and tw4 plan of care. Disposition: 04/08/19 18:40 Discharged to Home. Impression: Acute upper respiratory infection, unspecified. - Condition is Stable. - Discharge Instructions: Upper Respiratory Infection, Adult. - Prescriptions for Guaifenesin AC 10- 100 mg/5 mL Oral Liquid - take 10 milliliter by ORAL route every 4 hours As needed; 240 milliliter. - Medication Reconciliation Form, Thank You Letter, Antibiotic Education, Prescription Opioid Use form. - Follow up: Emergency Department; When: As needed; Reason: Worsening of condition. Follow up: Private Physician; When: 2 - 3 days; Reason: Recheck today's complaints, Continuance of care, Re-evaluation by your physician. - Problem is new. - Symptoms have improved. Signatures: Dispatcher [employer] EDMS Conrado Irizarry, CENTRAL SUPPLY ASSISTANT CENTRAL SUPPLY ASSISTANT pm1 Krupa Stark, RN RN hb Gonzalez Calixto, RN RN bp Fran Allen MD MD tw4 Corrections: (The following items were deleted from the chart) 04/08 18:53 18:40 04/08/2019 18:40 Discharged to Home. Impression: Acute upper respiratory bp infection, unspecified. Condition is Stable. Forms are Medication Reconciliation Form, Thank You Letter, Antibiotic Education, Prescription Opioid Use. Follow up: Emergency Department; When: As needed; Reason: Worsening of condition. Follow up: Private Physician; When: 2 - 3 days; Reason: Recheck today's complaints, Continuance of care, Re-evaluation by your physician. Problem is new. Symptoms have improved. pm1
[2019-04-08 20:48] VITALS: TEMP 97.9
[2019-04-08 20:49] VITALS: BP 111/77; O2SAT 96
== END 2019-04-08 18:53 | disposition home or self-care (01) ==
LOC: ER 16:51
DX: J06.9 Acute upper respiratory infection, unspecified (principal); Z88.0 Allergy status to penicillin; F17.210 Nicotine dependence, cigarettes, uncomplicated
CPT/HCPCS: 71046; 87070; 87081; 87804; 99284

== ENCOUNTER 2020-02-25 11:42 | Emergency (ER) | payer SELFPAY ==
--- OUTSIDE RECORDS SUMMARY | 2020-02-25 11:44 | XMS REPORT | Clinical Summary ---
:1985 Author Organization [facility] Address [address] [place] [address] Care Team Providers Name Role Phone Unavailable Primary Care Provider Unavailable Allergies Not on File Medications Not on file Active Problems Not on file Social History Tobacco Use Types Packs/Day Years Used Date Never Assessed Sex Assigned at Date Recorded Not on file Last Filed Vital Signs Not on file Plan of Treatment Not on file Results Not on fileafter 02/24/2019
[2020-02-25] MEDS ORDERED: MORPHINE 2 MG/ML SYR ONE ×2 (12:58→15:56)
[2020-02-25] MEDS ORDERED: NA CHLORIDE 0.9% 1,000 ML ONE (12:58)
[2020-02-25] MEDS ORDERED: FAMOTIDINE 20 MG/2 ML VIAL IV ONE (12:58)
[2020-02-25] MEDS ORDERED: ONDANSETRON 4 MG/2 ML VIAL ONE (12:58)
[2020-02-25 13:02] LABS: Absolute Lymphocytes (CBC) 1.5 K/uL (0.7-4.9); Hematocrit 45.9 % (39.6-49.0); Lymphocytes % 36.7 % (15.3-44.8); MPV 8.3 fL (7.6-11.3); RBC Red Blood Cell Count 5.05 M/uL (4.33-5.43)
[2020-02-25 13:17] LABS: ALT/SGPT 31 U/L (12-78); Albumin 3.8 g/dL (3.4-5.0); Alkaline Phosphatase 75 U/L (45-117); BUN Blood Urea Nitrogen 13 mg/dL (7-18); Bicarbonate 26 mmol/L (21-32); Bilirubin Direct < 0.1 mg/dL (0-0.2); Bilirubin Total 0.3 mg/dL (0.2-1.0); Glucose Level 171 mg/dL (74-106); Lipase 183 U/L (73-393); Protein, Total 8.4 g/dL (6.4-8.2); Sodium Level 137 mmol/L (136-145)
[2020-02-25 13:18] LABS: AST/SGOT 15 U/L (15-37); Potassium 4.7 mmol/L (3.5-5.1)
--- NOTE | 2020-02-25 14:59 | RAD REPORT ---
EXAM DESCRIPTION: CT - Abdomen Pelvis W Contrast - 02/25/2020 2:44 pm CLINICAL HISTORY: ABD PAIN, 2 weeks duration, hematemesis COMPARISON: Abdomen Pelvis W Contrast dated 08/24/2017 TECHNIQUE: Biphasic, helical CT imaging of the abdomen and pelvis was performed following 100 ml non -ionic IV contrast. Oral contrast was given. All CT scans are performed using dose optimization technique as appropriate and may include automated exposure control or mA/KV adjustment according to patient size. FINDINGS: No suspicious findings in the lung bases. The liver, spleen, and pancreas show no suspicious findings. Gallbladder and biliary tree are also wi thout suspicious finding. Symmetric renal function is seen with no hydronephrosis or suspicious renal mass. No pyelonephritis o r acute parenchymal process. No bladder abnormalities. No adrenal abnormalities. No gastric dilatation or gastric wall thickening. Dilated large or small bowel. Oral contrast has maxine ched the mid transverse colon. There is inadequate distention of the right-side colon for optimal ass essment. Small mucosal level inflammatory changes or mucosal level masses could be obscured. Prominen t diverticulosis in the sigmoid colon without diverticulitis. No free air, free fluid or inflammatory stranding. No hernia, mass or bulky lymphadenopathy. No suspicious bony findings. Degenerative disc and endplate changes are present at L5. IMPRESSION: Contrast enhanced CT abdomen and pelvis showing no acute or emergent finding. Nonacute findings detailed in the body of the report.
--- NOTE | 2020-02-25 15:03 | ER ---
Nurse's Notes [facility] Name: Stephen Ribeiro Age: 34 yrs Sex: Male : 1985 Arrival Date: 02/25/2020 Time: 11:44 Bed 18 Private MD: Diagnosis: Abdominal tenderness;Vomiting;Diarrhea, unspecified Presentation: 02/24 12:01 Chief complaint: Patient states: im having abdominal pain goes from side to side tw2 started 2 weeks ago, i am throwing up blood, i had a polyp in the past and they took it out but i dont know if it is something else or what, +D. Coronavirus screen: nausea, Client presents with at least one sign or symptom that may indicate coronavirus-19. Standard/surgical mask placed on the client. Provider contacted for isolation considerations. Ebola Screen: Patient denies travel to an Ebola-affected area in the 21 days before illness onset. Initial Sepsis Screen: Does the patient meet any 2 criteria? HR > 90 bpm. No. Patient's initial sepsis screen is negative. Does the patient have a suspected source of infection? No. Patient's initial sepsis screen is negative. Risk Assessment: Do you want to hurt yourself or someone else? Patient reports no desire to harm self or others. Onset of symptoms was February 25, 2020. 12:01 Method Of Arrival: Ambulatory tw2 12:01 Acuity: TRISH 3 tw2 Triage Assessment: 12:03 General: Appears uncomfortable, ill, Behavior is calm, cooperative, appropriate for tw2 age. GI: Reports lower abdominal pain, upper abdominal pain, nausea, vomiting, bloody vomit. Derm: Skin is pale. Historical: - Allergies: 12:03 PENICILLINS; tw2 - Home Meds: 12:03 Depakote 500 mg Oral TbEC 2 tabs 2 times per day [Active]; carbamazepine 200 mg Oral tw2 CM12 1 cap 2 times per day [Active]; - PMHx: 12:03 Diverticulitis; Seizures; tw2 - PSHx: 12:03 None; tw2 - Immunization history:: Adult Immunizations. - Social history:: Smoking status: Patient reports the use of cigarette tobacco products, smokes one pack cigarettes per day. - Family history:: not pertinent. Screenin:07 Abuse screen: Denies threats or abuse. Denies injuries from another. Nutritional ca1 screening: No deficits noted. Tuberculosis screening: No symptoms or risk factors identified. Fall Risk IV access (20 points). Assessment: 12:07 General: Appears in no apparent distress. uncomfortable, Behavior is calm, cooperative, ca1 appropriate for age. Pain: Complains of pain in abdomen Pain currently is 10 out of 10 on a pain scale. Pain began 2 weeks. Neuro: Level of Consciousness is awake, alert, obeys commands, Oriented to person, place, time, situation. Cardiovascular: Heart tones S1 S2 present Capillary refill < 3 seconds Patient's skin is warm and dry. Respiratory: Airway is patent Respiratory effort is even, unlabored, Respiratory pattern is regular, symmetrical, Breath sounds are clear bilaterally. GI: Abdomen is flat, non-distended, Bowel sounds present X 4 quads. Abd is soft and non tender X 4 quads. Reports diarrhea, nausea, vomiting, since 2 weeks. : No signs and/or symptoms were reported regarding the genitourinary system. EENT: No signs and/or symptoms were reported regarding the EENT system. Derm: Skin is intact, is healthy with good turgor, Skin is pink, warm \T\ dry. Musculoskeletal: Circulation, motion, and sensation intact. Capillary refill < 3 seconds. 13:01 Reassessment: Patient appears in no apparent distress at this time. Patient and/or ca1 family updated on plan of care and expected duration. Pain level reassessed. Patient is alert, oriented x 3, equal unlabored respirations, skin warm/dry/pink. 14:02 Reassessment: Patient appears in no apparent distress at this time. Patient and/or ca1 family updated on plan of care and expected duration. Pain level reassessed. Patient is alert, oriented x 3, equal unlabored respirations, skin warm/dry/pink. 15:06 Reassessment: Patient appears in no apparent distress at this time. Patient is alert, ca1 oriented x 3, equal unlabored respirations, skin warm/dry/pink. 15:45 Reassessment: Patient appears in no apparent distress at this time. Patient is alert, ca1 oriented x 3, equal unlabored respirations, skin warm/dry/pink. Vital Signs: 12:01 BP 142 / 97; Pulse 102; Resp 17; Temp 97.9(TE); Pulse Ox 97% on R/A; Weight 90.72 kg; tw2 Height 5 ft. 10 in. (177.80 cm); Pain 10/10; 13:01 BP 131 / 82; Pulse 85; Resp 18 S; Pulse Ox 94% on R/A; ca1 13:52 BP 110 / 82; Pulse 74; Resp 17; Temp 97.5(O); Pulse Ox 95% on R/A; mh5 15:06 BP 110 / 79; Pulse 74; Resp 16 S; Pulse Ox 96% on R/A; ca1 15:45 BP 120 / 68; Pulse 71; Resp 16 S; Pulse Ox 97% on R/A; ca1 12:01 Body Mass Index 28.70 (90.72 kg, 177.80 cm) tw2 ED Course: 11:44 Patient arrived in ED. ag3 12:02 Triage completed. tw2 12:04 Arm band placed on. tw2 12:05 Dania Fish, RN is Primary Nurse. ca1 12:06 Don Liu MD is Attending Physician. yari 12:07 Patient has correct armband on for positive identification. Bed in low position. Call ca1 light in reach. Side rails up X 1. Pulse ox on. NIBP on. Warm blanket given. 12:40 Initial lab(s) drawn, by me, sent to lab. Inserted saline lock: 20 gauge in right ca1 forearm, using aseptic technique. Blood collected. 13:01 COVID swab sent to lab. ca1 14:00 CBC with Diff Sent. sv 14:00 Basic Metabolic Panel Sent. sv 14:44 CT Abd/Pelvis - PO and IV Contrast In Process Unspecified. EDMS 15:03 Halima Helms MD is Referral Physician. yari 15:45 No provider procedures requiring assistance completed. IV discontinued, intact, ca1 bleeding controlled, No redness/swelling at site. Pressure dressing applied. Administered Medications: 12:42 Drug: NS 0.9% 1000 ml Route: IV; Rate: 1 bolus; Site: right forearm; ca1 13:50 Follow up: Response: No adverse reaction; IV Status: Completed infusion; IV Intake: ca1 1000ml 12:43 Drug: Pepcid 20 mg Route: IVP; Site: right forearm; ca1 14:24 Follow up: Response: No adverse reaction ca1 12:45 Drug: Zofran (Ondansetron) 4 mg Route: IVP; Site: right forearm; ca1 14:24 Follow up: Response: No adverse reaction; Nausea is decreased ca1 12:48 Drug: morphine 2 mg {Note: rass 0.} Route: IVP; Site: right forearm; ca1 13:30 Follow up: Response: No adverse reaction; Pain is decreased; RASS: Alert and Calm (0) ca1 15:30 Drug: morphine 2 mg {Note: rass 0.} Route: IVP; Site: right forearm; ca1 15:44 Follow up: Response: No adverse reaction; Pain is decreased; RASS: Alert and Calm (0) ca1 Intake: 13:50 IV: 1000ml; Total: 1000ml. ca1 Outcome: 15:03 Discharge ordered by . yari 15:45 Discharged to home ambulatory. ca1 15:45 Condition: stable 15:45 Discharge instructions given to patient, Instructed on discharge instructions, follow up and referral plans. medication usage, Demonstrated understanding of instructions, follow-up care, medications, Prescriptions given X 3. 15:46 Patient left the ED. ca1 Addendum: 02/27/2020 07:44 Addendum: COVID-19 Result: Negative result given to RN to notify pt. Notified pt of d m5 negative COVID 19 swab results. Pt advised that even with a negative test result they should remain in isolation until symptom free for 3 days without medication. Pt also advised to return to the ED for worsening symptoms. Signatures: Dispatcher [employer] EDMS Jennie Medeiros RN RN dm5 Ivania England RN RN sv Anderson, Corey, MD MD cha Wise, Tara, RN RN 2 Mary Fernandes Sandra Osman Dania Koroma RN RN ca1
--- NOTE | 2020-02-25 15:03 | EDPHYS ---
Physician Documentation [facility] Name: Stephen Ribeiro Age: 34 yrs Sex: Male : 1985 Arrival Date: 02/25/2020 Time: 11:44 Bed 18 Private MD: ZEKE Physician Don Liu HPI: 02/24 12:48 This 34 yrs old Male presents to ER via Ambulatory with complaints of yari Abdominal Pain, Vomiting. 12:48 The patient presents to the emergency department with nausea, vomiting, diarrhea, yari abdominal pain, of the right upper quadrant, left upper quadrant, right lower quadrant and left lower quadrant. Onset: The symptoms/episode began/occurred 2 day(s) ago. Possible causes: unknown. The symptoms are aggravated by nothing. The symptoms are alleviated by nothing. Associated signs and symptoms: The patient has no apparent associated signs or symptoms. Severity of symptoms: At their worst the symptoms were mild in the emergency department the symptoms are unchanged. The patient has not experienced similar symptoms in the past. Historical: - Allergies: 12:03 PENICILLINS; tw2 - Home Meds: 12:03 Depakote 500 mg Oral TbEC 2 tabs 2 times per day [Active]; carbamazepine 200 mg Oral tw2 CM12 1 cap 2 times per day [Active]; - PMHx: 12:03 Diverticulitis; Seizures; tw2 - PSHx: 12:03 None; tw2 - Immunization history:: Adult Immunizations. - Social history:: Smoking status: Patient reports the use of cigarette tobacco products, smokes one pack cigarettes per day. - Family history:: not pertinent. ROS: 12:48 Constitutional: Negative for fever, chills, and weight loss, Eyes: Negative for injury, yari pain, redness, and discharge, ENT: Negative for injury, pain, and discharge, Neck: Negative for injury, pain, and swelling, Cardiovascular: Negative for chest pain, palpitations, and edema, Respiratory: Negative for shortness of breath, cough, wheezing, and pleuritic chest pain, Back: Negative for injury and pain, : Negative for injury, bleeding, discharge, and swelling, MS/Extremity: Negative for injury and deformity, Skin: Negative for injury, rash, and discoloration, Neuro: Negative for headache, weakness, numbness, tingling, and seizure, Psych: Negative for depression, anxiety, suicide ideation, homicidal ideation, and hallucinations, Allergy/Immunology: Negative for hives, rash, and allergies, Endocrine: Negative for neck swelling, polydipsia, polyuria, polyphagia, and marked weight changes, Hematologic/Lymphatic: Negative for swollen nodes, abnormal bleeding, and unusual bruising. 12:48 Abdomen/GI: Positive for abdominal pain, nausea and vomiting, diarrhea. Exam: 12:48 Constitutional: This is a well developed, well nourished patient who is awake, alert, yari and in no acute distress. Head/Face: Normocephalic, atraumatic. Eyes: Pupils equal round and reactive to light, extra-ocular motions intact. Lids and lashes normal. Conjunctiva and sclera are non-icteric and not injected. Cornea within normal limits. Periorbital areas with no swelling, redness, or edema. ENT: Nares patent. No nasal discharge, no septal abnormalities noted. Tympanic membranes are normal and external auditory canals are clear. Oropharynx with no redness, swelling, or masses, exudates, or evidence of obstruction, uvula midline. Mucous membranes moist. Neck: Trachea midline, no thyromegaly or masses palpated, and no cervical lymphadenopathy. Supple, full range of motion without nuchal rigidity, or vertebral point tenderness. No Meningismus. Chest/axilla: Normal chest wall appearance and motion. Nontender with no deformity. No lesions are appreciated. Cardiovascular: Regular rate and rhythm with a normal S1 and S2. No gallops, murmurs, or rubs. Normal PMI, no JVD. No pulse deficits. Respiratory: Lungs have equal breath sounds bilaterally, clear to auscultation and percussion. No rales, rhonchi or wheezes noted. No increased work of breathing, no retractions or nasal flaring. Back: No spinal tenderness. No costovertebral tenderness. Full range of motion. Male : Normal genitalia with no discharge or lesions. Skin: Warm, dry with normal turgor. Normal color with no rashes, no lesions, and no evidence of cellulitis. MS/ Extremity: Pulses equal, no cyanosis. Neurovascular intact. Full, normal range of motion. Neuro: Awake and alert, GCS 15, oriented to person, place, time, and situation. Cranial nerves II-XII grossly intact. Motor strength 5/5 in all extremities. Sensory grossly intact. Cerebellar exam normal. Normal gait. Psych: Awake, alert, with orientation to person, place and time. Behavior, mood, and affect are within normal limits. 12:48 Respiratory: the patient does not display signs of respiratory distress. 12:48 Abdomen/GI: Inspection: distension, that is mild, Bowel sounds: normal, Palpation: mild abdominal tenderness, in all quadrants, Liver: no appreciated palpable abnormalities, Hernia: not appreciated. 12:48 Musculoskeletal/extremity: DVT Exam: No signs of deep vein thrombosis. no pain, no swelling, no tenderness, negative Homans' sign noted on exam, no appreciated bluish discoloration, no erythema, no increased warmth. Vital Signs: 12:01 BP 142 / 97; Pulse 102; Resp 17; Temp 97.9(TE); Pulse Ox 97% on R/A; Weight 90.72 kg; tw2 Height 5 ft. 10 in. (177.80 cm); Pain 10/10; 13:01 BP 131 / 82; Pulse 85; Resp 18 S; Pulse Ox 94% on R/A; ca1 13:52 BP 110 / 82; Pulse 74; Resp 17; Temp 97.5(O); Pulse Ox 95% on R/A; mh5 15:06 BP 110 / 79; Pulse 74; Resp 16 S; Pulse Ox 96% on R/A; ca1 15:45 BP 120 / 68; Pulse 71; Resp 16 S; Pulse Ox 97% on R/A; ca1 12:01 Body Mass Index 28.70 (90.72 kg, 177.80 cm) tw2 MDM: 12:06 Patient medically screened. yari 12:50 Differential diagnosis: Nonspecific abd pain, gastritis, pancreatitis, diverticulitis, yari viral gastroenteritis, gastroenteritis. Data reviewed: vital signs, nurses notes, lab test result(s), radiologic studies, CT scan, plain films. Data interpreted: patient monitor: rate is 102 beats/min, rhythm is regular, Pulse oximetry: on room air is 97 %. Test interpretation: by ED physician or midlevel provider: ECG, plain radiologic studies. Counseling: I had a detailed discussion with the patient and/or guardian regarding: the historical points, exam findings, and any diagnostic results supporting the discharge/admit diagnosis, lab results, radiology results, the need for outpatient follow up, for definitive care, a family practitioner, a wildlife removal specialist. 02/24 12:29 Order name: Basic Metabolic Panel [facility] 02/24 12:29 Order name: CBC with Diff [facility] 02/24 12:29 Order name: Hepatic Function; Complete Time: 13:42 [facility] 02/24 12:29 Order name: Lipase; Complete Time: 13:42 [facility] 02/24 12:29 Order name: Basic Metabolic Panel; Complete Time: 13:42 EDMS 02/24 12:29 Order name: CBC with Automated Diff; Complete Time: 13:18 EDMS 02/24 12:29 Order name: IV Saline Lock; Complete Time: 12:41 [facility] 02/24 12:29 Order name: Labs collected and sent; Complete Time: 12:40 [facility] 02/24 12:29 Order name: CT Abd/Pelvis - PO and IV Contrast [facility] 02/24 12:48 Order name: COVID-19 [facility] Administered Medications: 12:42 Drug: NS 0.9% 1000 ml Route: IV; Rate: 1 bolus; Site: right forearm; ca1 13:50 Follow up: Response: No adverse reaction; IV Status: Completed infusion; IV Intake: ca1 1000ml 12:43 Drug: Pepcid 20 mg Route: IVP; Site: right forearm; ca1 14:24 Follow up: Response: No adverse reaction ca1 12:45 Drug: Zofran (Ondansetron) 4 mg Route: IVP; Site: right forearm; ca1 14:24 Follow up: Response: No adverse reaction; Nausea is decreased ca1 12:48 Drug: morphine 2 mg {Note: rass 0.} Route: IVP; Site: right forearm; ca1 13:30 Follow up: Response: No adverse reaction; Pain is decreased; RASS: Alert and Calm (0) ca1 15:30 Drug: morphine 2 mg {Note: rass 0.} Route: IVP; Site: right forearm; ca1 15:44 Follow up: Response: No adverse reaction; Pain is decreased; RASS: Alert and Calm (0) ca1 Disposition: 02/25/20 15:03 Discharged to Home. Impression: Abdominal tenderness, Vomiting, Diarrhea, unspecified. - Condition is Stable. - Discharge Instructions: Abdominal Pain, Adult, Diarrhea, Adult, Nausea and Vomiting, Adult, Nausea and Vomiting, Adult, Egpn-[id number], Abdominal Pain, Adult, Bndn-ar-Emuc, Diarrhea, Adult, Unxr-iy-Viet. - Prescriptions for Bentyl 20 mg Oral Tablet - take 1 tablet by ORAL route every 6 hours As needed; 20 tablet. Pepcid 20 mg Oral Tablet - take 1 tablet by ORAL route every 12 hours for 10 days; 20 tablet. Zofran 4 mg Oral Tablet - take 1 tablet by ORAL route every 12 hours As needed; 20 tablet. - Medication Reconciliation Form, Thank You Letter, Antibiotic Education, Prescription Opioid Use, Work release form form. - Follow up: Private Physician; When: 2 - 3 days; Reason: Recheck today's complaints, Continuance of care, Re-evaluation by your physician. Follow up: Halima Helms; When: 2 - 3 days; Reason: Recheck today's complaints, Continuance of care, Re-evaluation by your physician. - Problem is new. - Symptoms have worsened. Signatures: Dispatcher [employer] EDMT Don Liu MD MD cha Wise, Tara RN RN tw2 Dania Fish RN RN ca1 Corrections: (The following items were deleted from the chart) 15:46 15:03 02/25/2020 15:03 Discharged to Home. Impression: Abdominal tenderness; Vomiting; ca1 Diarrhea, unspecified. Condition is Stable. Discharge Instructions: Abdominal Pain, Adult, Diarrhea, Adult, Nausea and Vomiting, Adult, Nausea and Vomiting, Adult, Qomz-gn-Jzdh, Abdominal Pain, Adult, Jkys-vg-Tykl, Diarrhea, Adult, Kpzr-er-Ulwo. Prescriptions for Bentyl 20 mg Oral Tablet - take 1 tablet by ORAL route every 6 hours As needed; 20 tablet, Pepcid 20 mg Oral Tablet - take 1 tablet by ORAL route every 12 hours for 10 days; 20 tablet, Zofran 4 mg Oral Tablet - take 1 tablet by ORAL route every 12 hours As needed; 20 tablet. and Forms are Medication Reconciliation Form, Thank You Letter, Antibiotic Education, Prescription Opioid Use. Follow up: Private Physician; When: 2 - 3 days; Reason: Recheck today's complaints, Continuance of care, Re-evaluation by your physician. Follow up: Halima Helms; When: 2 - 3 days; Reason: Recheck today's complaints, Continuance of care, Re-evaluation by your physician. Problem is new. Symptoms have worsened. yari
[2020-02-25 16:20] VITALS: TEMP 97.5
[2020-02-25 16:22] VITALS: BP 120/68; O2SAT 97
== END 2020-02-25 15:46 | disposition home or self-care (01) ==
LOC: ER 11:42
DX: R19.7 Diarrhea, unspecified (principal); R11.2 Nausea with vomiting, unspecified; F17.210 Nicotine dependence, cigarettes, uncomplicated; G40.909 Epilepsy, unspecified, not intractable, without status epilepticus; Z88.0 Allergy status to penicillin
CPT/HCPCS: 36415; 74177; 80048; 80076; 83690; 85025; 96361; 96374; 96375; 99284; J2270; J2405; J7030; Q9967; U0002

== ENCOUNTER 2020-10-22 11:28 | Emergency (ER) | payer SELFPAY ==
[2020-10-22 13:43] LABS: SARS-COV-2 RT PCR NEGATIVE (NEGATIVE)
--- NOTE | 2020-10-22 14:37 | EDPHYS ---
Physician Documentation [facility] Name: Stephen Ribeiro Age: 34 yrs Sex: Male : 1985 Arrival Date: 10/22/2020 Time: 11:31 Bed Waiting Private MD: ZEKE Physician Don Liu HPI: 10/22 17:12 This 34 yrs old Male presents to ER via Ambulatory with complaints of kb Abdominal Pain, Headache, Cough. 17:12 The patient or guardian reports cough, that is intermittent, described as mild. Onset: kb The symptoms/episode began/occurred today. Severity of symptoms: At their worst the symptoms were very mild, mild, in the emergency department the symptoms are unchanged. Modifying factors: The symptoms are alleviated by nothing, the symptoms are aggravated by nothing. Associated signs and symptoms: The patient has no apparent associated signs or symptoms. The patient has not experienced similar symptoms in the past. The patient has not recently seen a physician. Pt reports slight headache and cough that started today. States his job told him he had to get tested for covid. Historical: - Allergies: 11:54 PENICILLINS; kg - Home Meds: 11:54 carbamazepine 200 mg Oral CM12 1 cap 2 times per day [Active]; Depakote 500 mg Oral kg TbEC 2 tabs 2 times per day [Active]; - PMHx: 11:54 Diverticulitis; Seizures; kg - PSHx: 11:54 None; kg - Immunization history:: Adult Immunizations not up to date, Client reports having NOT received the Covid vaccine. - Social history:: Smoking status: Patient reports the use of cigarette tobacco products, smokes two packs cigarettes per day. Patient uses alcohol, on a daily basis. street drugs, marijuana. ROS: 17:12 Constitutional: Negative for fever, chills, and weight loss. kb 17:12 Respiratory: Positive for cough, Negative for dyspnea on exertion, hemoptysis, orthopnea, pleurisy, shortness of breath, sputum production, wheezing. 17:12 Neuro: Positive for headache. 17:12 All other systems are negative. Exam: 17:12 Constitutional: This is a well developed, well nourished patient who is awake, alert, kb and in no acute distress. Head/Face: Normocephalic, atraumatic. ENT: Moist Mucous membranes Cardiovascular: Regular rate and rhythm with a normal S1 and S2. No gallops, murmurs, or rubs. No pulse deficits. Respiratory: Respirations even and unlabored. No increased work of breathing, no retractions or nasal flaring. Skin: Warm, dry with normal turgor. Normal color. MS/ Extremity: Pulses equal, no cyanosis. Neurovascular intact. Full, normal range of motion. Neuro: Awake and alert, GCS 15, oriented to person, place, time, and situation. Moves all extremities. Normal gait. Psych: Awake, alert, with orientation to person, place and time. Behavior, mood, and affect are within normal limits. Vital Signs: 11:52 Pulse 96; Resp 18; Temp 97.5(TE); Pulse Ox 98% on R/A; Weight 90.72 kg (R); Height 5 kg ft. 10 in. (177.80 cm) (R); Pain 3/10; 11:52 Body Mass Index 28.70 (90.72 kg, 177.80 cm) kg MDM: 11:54 Patient medically screened. kb 17:11 Data reviewed: vital signs, nurses notes. Data interpreted: Pulse oximetry: on room air kb is 98 %. Interpretation: normal. Counseling: I had a detailed discussion with the patient and/or guardian regarding: the historical points, exam findings, and any diagnostic results supporting the discharge/admit diagnosis, lab results, the need for outpatient follow up, a family practitioner, to return to the emergency department if symptoms worsen or persist or if there are any questions or concerns that arise at home. 10/22 13:43 Order name: COVID-19/FLU A+B; Complete Time: 13:48 EDMS Administered Medications: No medications were administered Disposition: 10/23 08:25 Co-signature as Attending Physician, Don Liu MD I agree with the assessment and yari plan of care. Disposition Summary: 10/22/20 14:36 Discharge Ordered Location: Home Condition: Stable kb Diagnosis - Cough kb Followup: kb - With: Emergency Department - When: As needed - Reason: Worsening of condition Followup: kb - With: Private Physician - When: 2 - 3 days - Reason: Recheck today's complaints, Continuance of care, Re-evaluation by your physician Discharge Instructions: - Discharge Summary Sheet kb - Cough, Adult, [id number]-rb-[id number] kb Forms: - Medication Reconciliation Form kb - Thank You Letter kb - Antibiotic Education kb - Prescription Opioid Use kb Signatures: Dispatcher [employer] EDAshlee Coles, [place] TEACHER-Candy COLLINS-Don Borrero MD MD cha Graham, Kristen, RN RN kg Corrections: (The following items were deleted from the chart) 10/22 12:50 11:54 Influenza Screen (A \T\ B)+BA.LAB.BRZ ordered. EDMS EDMS 12:51 11:54 CORONAVIRUS+MR.LAB.BRZ ordered. EDMS EDMS
--- NOTE | 2020-10-22 14:37 | ER ---
Nurse's Notes [facility] Name: Stephen Ribeiro Age: 34 yrs Sex: Male : 1985 Arrival Date: 10/22/2020 Time: 11:31 Bed Waiting Private MD: Diagnosis: Cough Presentation: 10/22 11:52 Chief complaint: Patient states: Cough, headache x 1 days. Coronavirus screen: Vaccine kg status: Patient reports being unvaccinated. Client denies travel out of the [place] in the last 14 days. At this time, unable to obtain information related to travel outside the [place] Ebola Screen: Patient negative for fever greater than or equal to 101.5 degrees Fahrenheit, and additional compatible Ebola Virus Disease symptoms Patient denies exposure to infectious person. Patient denies travel to an Ebola-affected area in the 21 days before illness onset. Initial Sepsis Screen: Does the patient meet any 2 criteria? No. Patient's initial sepsis screen is negative. Does the patient have a suspected source of infection? No. Patient's initial sepsis screen is negative. Risk Assessment: Do you want to hurt yourself or someone else? Patient reports no desire to harm self or others. Onset of symptoms was October 21, 2020. 11:52 Method Of Arrival: Ambulatory kg 11:52 Acuity: TRISH 4 kg Triage Assessment: 11:54 Headache History: Denies prior headaches. General: Appears in no apparent distress. kg Behavior is calm, cooperative, appropriate for age, quiet. Pain: Pain currently is 3 out of 10 on a pain scale. at worst was 4 out of 10 on a pain scale. level that patient reports is acceptable is 3 out of 10 on a pain scale. Pain began 2 hours ago. Also complains of no other associated symptoms. Neuro: No deficits noted. Historical: - Allergies: 11:54 PENICILLINS; kg - Home Meds: 11:54 carbamazepine 200 mg Oral CM12 1 cap 2 times per day [Active]; Depakote 500 mg Oral kg TbEC 2 tabs 2 times per day [Active]; - PMHx: 11:54 Diverticulitis; Seizures; kg - PSHx: 11:54 None; kg - Immunization history:: Adult Immunizations not up to date, Client reports having NOT received the Covid vaccine. - Social history:: Smoking status: Patient reports the use of cigarette tobacco products, smokes two packs cigarettes per day. Patient uses alcohol, on a daily basis. street drugs, marijuana. Screenin:49 Abuse screen: Denies threats or abuse. Denies injuries from another. Nutritional ss screening: No deficits noted. Tuberculosis screening: Never had TB. Fall Risk None identified. 14:49 Abuse screen: Denies threats or abuse. Denies injuries from another. Nutritional kg screening: No deficits noted. Tuberculosis screening: No symptoms or risk factors identified. Fall Risk None identified. Assessment: 14:49 Reassessment: Patient appears in no apparent distress at this time. Patient and/or ss family updated on plan of care and expected duration. Pain level reassessed. Patient is alert, oriented x 3, equal unlabored respirations, skin warm/dry/pink. Neuro: Level of Consciousness is awake, alert. Respiratory: Airway is patent Trachea midline Respiratory effort is even, unlabored. Vital Signs: 11:52 Pulse 96; Resp 18; Temp 97.5(TE); Pulse Ox 98% on R/A; Weight 90.72 kg (R); Height 5 kg ft. 10 in. (177.80 cm) (R); Pain 3/10; 11:52 Body Mass Index 28.70 (90.72 kg, 177.80 cm) kg ED Course: 11:31 Patient arrived in ED. mr 11:35 Ashlee Gorman [facility]NP-C [facility]. kb 11:35 Don Liu MD is Attending Physician. kb 11:54 Triage completed. kg 11:54 Arm band placed on right wrist. kg 14:49 Patient has correct armband on for positive identification. Bed in low position. Call ss light in reach. 14:49 No provider procedures requiring assistance completed. Patient did not have IV access ss during this emergency room visit. 14:50 No provider procedures requiring assistance completed. Patient did not have IV access kg during this emergency room visit. Administered Medications: No medications were administered Outcome: 14:36 Discharge ordered by . kb 14:49 Discharged to home ambulatory. ss 14:49 Condition: good 14:49 Discharge instructions given to patient, Instructed on discharge instructions, follow up and referral plans. medication usage, Demonstrated understanding of instructions, follow-up care. 14:50 Discharged to home ambulatory. kg 14:50 Condition: good 14:50 Discharge instructions given to patient, Instructed on discharge instructions, follow up and referral plans. Demonstrated understanding of instructions, follow-up care. 14:50 Patient left the ED. ss Signatures: Ashlee Gorman FNP-C FNP-Nesha Duran mr Lourdes Denson, RN RN ss Whit Howard RN RN kg
[2020-10-22 14:55] VITALS: TEMP 97.5; O2SAT 98
== END 2020-10-22 14:50 | disposition home or self-care (01) ==
LOC: ER 11:28
DX: R05 Cough (principal); G40.909 Epilepsy, unspecified, not intractable, without status epilepticus; F17.210 Nicotine dependence, cigarettes, uncomplicated; Z88.0 Allergy status to penicillin; Z20.822 Contact with and (suspected) exposure to COVID-19
CPT/HCPCS: 0240U; 99281

== ENCOUNTER 2021-09-30 12:01 | Emergency (ER) | payer SELFPAY ==
[2021-09-30 12:57] LABS: Absolute Lymphocytes (CBC) 0.4 K/uL (0.7-4.9); Lymphocytes % 5.6 % (15.3-44.8); MCV 89.8 fL (80-100); MPV 7.9 fL (7.6-11.3); RBC Red Blood Cell Count 4.78 M/uL (4.33-5.43)
[2021-09-30 13:08] LABS: Albumin 3.7 g/dL (3.4-5.0); Bilirubin Total 0.4 mg/dL (0.2-1.0); Potassium 3.7 mmol/L (3.5-5.1); Protein, Total 7.9 g/dL (6.4-8.2)
--- NOTE | 2021-09-30 13:16 | RAD REPORT ---
EXAM DESCRIPTION: CT - Abdomen Pelvis Wo Contrast - 09/30/2021 12:46 pm CLINICAL HISTORY: Abdominal pain. Bilateral flank pain, lower abdominal pain COMPARISON: Abdomen Pelvis W Contrast dated 09/09/2021 TECHNIQUE: CT imaging of the abdomen and pelvis was performed without contrast. Solid organ, bowel a nd vascular assessment is limited due to lack of IV and oral contrast. All CT scans are performed using dose optimization technique as appropriate and may include automated exposure control or mA/KV adjustment according to patient size. FINDINGS: The lower lung oliver are clear. The liver, spleen, pancreas, adrenal glands and kidneys are within normal limits for a limited non-co ntrast examination. No bowel obstruction, free air, free fluid or abscess. Mild stool is seen throughout the colon with d iverticulosis. The appendix is normal. The osseous structures are within normal limits. IMPRESSION: No acute intra-abdominal or pelvic findings. Diverticulosis coli without diverticulitis. A limited non-contrast examination was performed as detailed.
[2021-09-30] MEDS ORDERED: MORPHINE 4 MG/ML SYR ONE (13:38)
[2021-09-30] MEDS ORDERED: ONDANSETRON 4 MG/2 ML VIAL ONE (13:38)
[2021-09-30] MEDS ORDERED: DICYCLOMINE HCL 20 MG/2 ML AMP IM ONE (14:38)
[2021-09-30 15:23] LABS: Urine Blood Negative (Negative); Urine Glucose Trace (Negative); Urine Protein Trace (Negative); Urine Specific Gravity >=1.030 (1.005-1.030); Urine pH 5.5 (5.0-7.0)
[2021-09-30 15:45] LABS: Urine Bacteria <20 /HPF (<20); Urine RBC <5 /HPF (None Seen)
--- NOTE | 2021-09-30 16:22 | EDPHYS ---
Physician Documentation [facility] Name: Stephen Ribeiro Age: 35 yrs Sex: Male : 1985 Arrival Date: 09/30/2021 Time: 12:02 Bed 23 Private MD: ED Physician José Stanton HPI: 09/30 12:20 This 35 yrs old Male presents to ER via Ambulatory with complaints of Flank Pain, Leg ms3 Pain. 12:20 The patient complains of pain in the low back area. The pain radiates to the Right and ms3 left leg. Onset: The symptoms/episode began/occurred acutely, yesterday. Modifying factors: The symptoms are alleviated by nothing. the symptoms are aggravated by nothing. Associated signs and symptoms: The patient has no apparent associated signs or symptoms. Severity of pain: At its worst the pain was a 10 10. 35 yo male with pmh of diverticulitis presents c/o RLQ abdominal pain that began yesterday. Patient states at 1 am he developed bilateral flank pain. Patient denies alleviating or inciting factors. Patient denies fevers, chills.. Historical: - Allergies: 12:09 PENICILLINS; iw - Home Meds: 12:09 carbamazepine 200 mg Oral CM12 1 cap 2 times per day [Active]; Depakote 500 mg Oral iw TbEC 2 tabs 2 times per day [Active]; - PMHx: 12:09 Diverticulitis; Seizures; iw - PSHx: 12:09 None; iw - Immunization history:: Client reports having NOT received the Covid vaccine. - Social history:: Smoking status: Patient reports the use of cigarette tobacco products, smokes two packs cigarettes per day. ROS: 12:20 Constitutional: Negative for fever, and chills. Neck: Negative for injury, pain, and ms3 swelling, Cardiovascular: Negative for chest pain, and palpitations. Respiratory: Negative for shortness of breath, cough, wheezing, and pleuritic chest pain. 12:20 Neuro: Negative for headache, weakness, numbness, tingling. 12:20 Abdomen/GI: Positive for abdominal pain. 12:20 Back: Positive for flank pain, bilaterally. 12:20 All other systems are negative. Exam: 12:20 Constitutional: This is a well developed, well nourished patient who is awake, alert, ms3 and in no acute distress. Head/Face: Normocephalic, atraumatic. Neck: Trachea midline, no cervical lymphadenopathy. Supple, full range of motion without nuchal rigidity, or vertebral point tenderness. No Meningismus. Chest/axilla: Normal chest wall appearance and motion. Nontender with no deformity. Cardiovascular: Regular rate and rhythm with a normal S1 and S2. No gallops, murmurs, or rubs. Normal PMI, no JVD. No pulse deficits. Respiratory: Lungs have equal breath sounds bilaterally, clear to auscultation and percussion. No rales, rhonchi or wheezes noted. No increased work of breathing, no retractions or nasal flaring. 12:20 Skin: Warm, dry with normal turgor. Normal color with no rashes, no lesions, and no evidence of cellulitis. MS/ Extremity: Pulses equal, no cyanosis. Neurovascular intact. Full, normal range of motion. Psych: Awake, alert, with orientation to person, place and time. Behavior, mood, and affect are within normal limits. 12:20 Abdomen/GI: Inspection: abdomen appears normal, Bowel sounds: normal, Palpation: moderate abdominal tenderness, in all quadrants. Vital Signs: 12:07 BP 159 / 94; Pulse 119; Resp 18; Temp 97.8(TE); Pulse Ox 98% on R/A; Weight 90.72 kg; iw Height 5 ft. 10 in. (177.80 cm); Pain 10/10; 12:25 BP 140 / 90; Pulse 112; Resp 18; Pulse Ox 95% on R/A; tp1 13:35 BP 124 / 72; Pulse 107; Resp 18; Pulse Ox 96% on R/A; tp1 14:35 BP 115 / 79; Pulse 97; Resp 18; Pulse Ox 96% on R/A; tp1 15:30 BP 123 / 88; Pulse 103; Resp 18; Pulse Ox 98% on R/A; tp1 16:30 BP 111 / 83; Pulse 109; Resp 18; Pulse Ox 97% on R/A; tp1 12:07 Body Mass Index 28.70 (90.72 kg, 177.80 cm) iw MDM: 12:20 Differential diagnosis: nephrolithiasis, pyelonephritis, diverticulitis. ms3 13:04 Patient medically screened. ms3 16:58 Data reviewed: vital signs, nurses notes, lab test result(s), radiologic studies, and ms3 as a result, I will discharge patient. Counseling: I had a detailed discussion with the patient and/or guardian regarding: the historical points, exam findings, and any diagnostic results supporting the discharge/admit diagnosis, lab results, radiology results, the need for outpatient follow up, to return to the emergency department if symptoms worsen or persist or if there are any questions or concerns that arise at home. Special discussion: Based on the patient's Hx, exam, and Dx evaluation, there is no indication for emergent surgery or inpatient Tx. It is understood by the patient/guardian that if the Sx's persist or worsen they need to return immediately for re-evaluation. 09/30 12:19 Order name: CBC with Diff; Complete Time: 14:23 ms3 09/30 12:19 Order name: CMP; Complete Time: 14:23 ms3 09/30 12:19 Order name: Urine Microscopic Only; Complete Time: 16:16 ms3 09/30 12:19 Order name: CT Abd/Pelvis - Without Contrast; Complete Time: 14:23 ms3 09/30 15:24 Order name: Urine Dipstick-Ancillary; Complete Time: 16:16 EDMS 09/30 12:19 Order name: IV Saline Lock; Complete Time: 12:43 ms3 09/30 12:19 Order name: Labs collected and sent; Complete Time: 12:43 ms3 Administered Medications: 13:32 Drug: Zofran (Ondansetron) 4 mg Route: IVP; Site: right antecubital; tp1 14:09 Follow up: Response: No adverse reaction tp1 13:34 Drug: morphine 4 mg Route: IVP; Infused Over: 4 mins; Site: right antecubital; tp1 14:09 Follow up: Response: Pain is decreased tp1 14:34 Drug: Bentyl (dicyclomine) 20 mg Route: IM; Site: right deltoid; tp1 15:00 Follow up: Response: Pain is decreased tp1 16:58 Drug: HYDROcodone-acetaminophen 5 mg-325 mg 1 tabs Route: PO; tp1 16:59 Follow up: Response: Medication administered at discharge. tp1 Disposition Summary: 09/30/21 16:21 Discharge Ordered Location: Home ms3 Condition: Stable ms3 Diagnosis - Lower abdominal pain, unspecified ms3 - Diverticulosis of large intestine without perforation or abscess without bleeding ms3 Followup: ms3 - With: Liban Nails MD - When: 2 - 3 days - Reason: Re-evaluation by your physician Discharge Instructions: - Discharge Summary Sheet ms3 - Abdominal Pain, Adult ms3 - Diverticulitis, [id number] ms3 Forms: - Medication Reconciliation Form ms3 - Thank You Letter ms3 - Antibiotic Education ms3 - Prescription Opioid Use ms3 Prescriptions: - Flagyl 500 mg Oral Tablet - take 1 tablet by ORAL route every 8 hours for 7 days; 21 tablet; Refills: 0, ms3 Product Selection Permitted - Cipro 500 mg Oral Tablet - take 1 tablet by ORAL route every 12 hours for 7 days; 14 tablet; Refills: 0, ms3 Product Selection Permitted Signatures: Dispatcher [employer] Xenia Marquis RN RN iw Sims, Marcus, DO DO ms3 So Poe RN RN tp1
--- NOTE | 2021-09-30 16:22 | ER ---
Nurse's Notes [facility] Name: Stephen Ribeiro Age: 35 yrs Sex: Male : 1985 Arrival Date: 09/30/2021 Time: 12:02 Bed 23 Private MD: Diagnosis: Lower abdominal pain, unspecified;Diverticulosis of large intestine without perforation or abscess without bleeding Presentation: 09/30 12:07 Chief complaint: Patient states: i had diverticulitis about a month ago and I was doing iw ok but now I'm having right sided abd pain and kidney pain and pain down my legs , pain started yesterday. Coronavirus screen: At this time, the client does not indicate any symptoms associated with coronavirus-19. Ebola Screen: Patient negative for fever greater than or equal to 101.5 degrees Fahrenheit, and additional compatible Ebola Virus Disease symptoms Patient denies exposure to infectious person. Patient denies travel to an Ebola-affected area in the 21 days before illness onset. No symptoms or risks identified at this time. Initial Sepsis Screen: Does the patient meet any 2 criteria? No. Patient's initial sepsis screen is negative. Does the patient have a suspected source of infection? No. Patient's initial sepsis screen is negative. Risk Assessment: Do you want to hurt yourself or someone else? Patient reports no desire to harm self or others. Onset of symptoms was September 29, 2021. 12:07 Method Of Arrival: Ambulatory iw 12:07 Acuity: TRISH 3 iw Historical: - Allergies: 12:09 PENICILLINS; iw - Home Meds: 12:09 carbamazepine 200 mg Oral CM12 1 cap 2 times per day [Active]; Depakote 500 mg Oral iw TbEC 2 tabs 2 times per day [Active]; - PMHx: 12:09 Diverticulitis; Seizures; iw - PSHx: 12:09 None; iw - Immunization history:: Client reports having NOT received the Covid vaccine. - Social history:: Smoking status: Patient reports the use of cigarette tobacco products, smokes two packs cigarettes per day. Screenin:25 Abuse screen: Denies threats or abuse. Nutritional screening: No deficits noted. tp1 Tuberculosis screening: No symptoms or risk factors identified. Fall Risk No fall in past 12 months (0 pts). IV access (20 points). Ambulatory Aid- None/Bed Rest/Nurse Assist (0 pts). Gait- Normal/Bed Rest/Wheelchair (0 pts) Mental Status- Oriented to own ability (0 pts). Assessment: 12:25 General: Appears in no apparent distress. uncomfortable, Behavior is calm, cooperative. tp1 Pain: Complains of pain in abdomen Pain radiates to back and to bilateral legs Pain currently is 10 out of 10 on a pain scale. Quality of pain is described as dull in the ABD and numbness in legs Pain began 1 day ago. Is continuous. Neuro: Level of Consciousness is awake, alert, obeys commands, Oriented to person, place, time, situation. Cardiovascular: Denies chest pain, Patient's skin is warm and dry. Respiratory: Airway is patent Respiratory effort is even, unlabored, Denies shortness of breath. GI: Abdomen is round non-distended, Abd is soft Abdomen is tender to palpation in right lower quadrant and left lower quadrant Reports diarrhea, vomiting. : No signs and/or symptoms were reported regarding the genitourinary system. EENT: No signs and/or symptoms were reported regarding the EENT system. Derm: Skin is pink, warm \T\ dry. Musculoskeletal: Circulation, motion, and sensation intact. 13:11 Reassessment: Patient appears in no apparent distress at this time. No changes from tp1 previously documented assessment. Patient and/or family updated on plan of care and expected duration. Pain level reassessed. Patient is alert, oriented x 3, equal unlabored respirations, skin warm/dry/pink. continues to CO 10/10 ABD pain. 13:24 Reassessment: Received VO from Dr. Stanton to administer morphine 4 mg IVP X1 and zofran 4 tp1 mg IVP X1. 14:08 Reassessment: Patient appears in no apparent distress at this time. states pain has tp1 decreased. rates pain 7/10. provider notified. 15:05 Reassessment: Patient appears in no apparent distress at this time. No changes from tp1 previously documented assessment. Patient and/or family updated on plan of care and expected duration. Pain level reassessed. Patient is alert, oriented x 3, equal unlabored respirations, skin warm/dry/pink. states pain has decreased. rates pain 6/10. 16:03 Reassessment: Patient appears in no apparent distress at this time. No changes from tp1 previously documented assessment. Patient and/or family updated on plan of care and expected duration. Pain level reassessed. Patient is alert, oriented x 3, equal unlabored respirations, skin warm/dry/pink. states pain is slowly coming back. ABD pain rated 8/10. Vital Signs: 12:07 BP 159 / 94; Pulse 119; Resp 18; Temp 97.8(TE); Pulse Ox 98% on R/A; Weight 90.72 kg; iw Height 5 ft. 10 in. (177.80 cm); Pain 10/10; 12:25 BP 140 / 90; Pulse 112; Resp 18; Pulse Ox 95% on R/A; tp1 13:35 BP 124 / 72; Pulse 107; Resp 18; Pulse Ox 96% on R/A; tp1 14:35 BP 115 / 79; Pulse 97; Resp 18; Pulse Ox 96% on R/A; tp1 15:30 BP 123 / 88; Pulse 103; Resp 18; Pulse Ox 98% on R/A; tp1 16:30 BP 111 / 83; Pulse 109; Resp 18; Pulse Ox 97% on R/A; tp1 12:07 Body Mass Index 28.70 (90.72 kg, 177.80 cm) iw ED Course: 12:02 Patient arrived in ED. as 12:09 Triage completed. iw 12:09 Arm band placed on. iw 12:10 José Stanton DO is Attending Physician. ms3 12:21 So Poe, GOPAL is Primary Nurse. tp1 12:25 Bed in low position. Call light in reach. tp1 12:42 Initial lab(s) drawn, by me, sent to lab. Inserted saline lock: 20 gauge in right vg1 antecubital area, using aseptic technique. Blood collected. 12:[address] via wheelchair. vg1 12:48 CT Abd/Pelvis - Without Contrast In Process Unspecified. EDMS 16:20 Liban Nails MD is Referral Physician. ms3 16:58 No provider procedures requiring assistance completed. IV discontinued, intact, tp1 bleeding controlled, No redness/swelling at site. Pressure dressing applied. Administered Medications: 13:32 Drug: Zofran (Ondansetron) 4 mg Route: IVP; Site: right antecubital; tp1 14:09 Follow up: Response: No adverse reaction tp1 13:34 Drug: morphine 4 mg Route: IVP; Infused Over: 4 mins; Site: right antecubital; tp1 14:09 Follow up: Response: Pain is decreased tp1 14:34 Drug: Bentyl (dicyclomine) 20 mg Route: IM; Site: right deltoid; tp1 15:00 Follow up: Response: Pain is decreased tp1 16:58 Drug: HYDROcodone-acetaminophen 5 mg-325 mg 1 tabs Route: PO; tp1 16:59 Follow up: Response: Medication administered at discharge. tp1 Medication: 12:25 VIS not applicable for this client. tp1 Outcome: 16:21 Discharge ordered by MD. ms3 16:58 Discharged to home ambulatory. tp1 16:58 Condition: good 16:58 Discharge instructions given to patient, Instructed on discharge instructions, follow up and referral plans. medication usage, Demonstrated understanding of instructions, follow-up care, medications, Prescriptions given X 2. 16:59 Patient left the ED. tp1 Signatures: Dispatcher [employer] EDMS Thelma Fernandes Irene, Lynette Paula RN, RN RN vg1 José Stanton DO DO ms3 So Poe RN RN tp1 Corrections: (The following items were deleted from the chart) 13:36 12:25 BP 140 / 90; Pulse 112bpm; Pulse Ox 95% RA; tp1 tp1 14:35 14:08 Reassessment: Patient appears in no apparent distress at this time. states pain tp1 has decreased. rates pain /10 tp1
[2021-09-30] MEDS ORDERED: HYDROCODONE/APAP 5/325 MG TAB ONE (17:03)
[2021-09-30 18:27] VITALS: TEMP 97.8
[2021-09-30 18:43] VITALS: BP 111/83; O2SAT 97
== END 2021-09-30 16:59 | disposition home or self-care (01) ==
LOC: ER 12:01
DX: K57.30 Diverticulosis of large intestine without perforation or abscess without bleeding (principal); F17.210 Nicotine dependence, cigarettes, uncomplicated; Z88.0 Allergy status to penicillin
CPT/HCPCS: 36415; 74176; 80053; 81003; 81015; 85025; 96372; 96374; 96375; 99284; J0500; J2405

== ENCOUNTER 2023-11-08 04:09 | Inpatient (IN) | payer OTHER ==
[2023-11-08] MEDS ORDERED: MORPHINE 4 MG/ML SYR ONE (04:27)
[2023-11-08] MEDS ORDERED: ONDANSETRON 4 MG/2 ML VIAL ONE (04:27)
[2023-11-08] MEDS ORDERED: NA CHLORIDE 0.9% 1,000 ML ONE ×3 (04:29→10:38)
[2023-11-08] MEDS ORDERED: methocarbamoL 750 MG TAB ONE (05:29)
[2023-11-08] MEDS ORDERED: KETOROLAC 30 MG/ML INJ ONE (05:30)
[2023-11-08] MEDS ORDERED: INSULIN REGULAR (HUMAN) 100 UNIT/ML ONE ×2 (05:47→13:51)
[2023-11-08 06:28] LABS: MCV 91.2 fL (80-100); MPV 8.8 fL (7.6-11.3); Nucleated Red Blood Cells % 0.4 % (0-0); Platelets 259 thou/uL (152-406); RBC Red Blood Cell Count 4.48 M/uL (4.33-5.43); Red Cell Distribution Width 12.7 % (12.1-15.2)
[2023-11-08 06:59] LABS: Hemoglobin 14.1 g/dL (13.6-17.9); MCH 31.5 pg (27.0-35.0)
[2023-11-08 07:00] LABS: MCHC 33.6 g/dL (32.0-36.0)
[2023-11-08 07:02] LABS: Albumin 3.1 g/dL (3.4-5.0); Albumin/Globulin Ratio 0.8 (1.1-1.8); Anion Gap 11.9 mEq/L (5.0-15.0); Bilirubin Total 0.3 mg/dL (0.2-1.0); Globulin 3.9 g/dL (2.3-3.5)
[2023-11-08 07:04] LABS: Potassium 3.9 mEq/L (3.5-5.1)
[2023-11-08 07:19] LABS: Specific Gravity > 1.030 (1.005-1.030); Urine Bilirubin NEGATIVE (Negative); Urine Blood Negative (Negative); Urine Clarity Clear (Clear); Urine Color Colorless (Yellow); Urine Glucose 4+ (Over) (Negative); Urine Ketones TRACE (Negative); Urine Microscopic Reflex YN NO UMIC; Urine Nitrite NEGATIVE (Negative); Urine Protein NEGATIVE (Negative); Urine Urobilinogen Normal (Normal); Urine pH 6.5 (5.0-7.0)
--- NOTE | 2023-11-08 07:37 | ER ---
Nurse's Notes [facility] Name: Stephen Ribeiro Age: 38 yrs Sex: Male : 1985 Arrival Date: 11/08/2023 Time: 04:09 Bed 8 Private MD: Danica Terrell H Diagnosis: Alcoholic pancreatitis, uncontrolled diabetes, hyperglycemia, dehydration, acute lower back pain Presentation: 11/07 04:22 Chief complaint: Patient states: lower back/kidney pain X1 week. intermittent at first lg3 but now constant. pain 11/29. Coronavirus screen: Client denies travel out of the [place] in the last 14 days. At this time, the client does not indicate any symptoms associated with coronavirus-19. Ebola Screen: No symptoms or risks identified at this time. Initial Sepsis Screen: Does the patient meet any 2 criteria? No. Patient's initial sepsis screen is negative. Does the patient have a suspected source of infection? No. Patient's initial sepsis screen is negative. Risk Assessment: Do you want to hurt yourself or someone else? Patient reports no desire to harm self or others. Onset of symptoms is unknown. 04:22 Method Of Arrival: Ambulatory lg3 04:22 Acuity: TRISH 3 lg3 Triage Assessment: 04:23 General: Appears in no apparent distress. uncomfortable, Behavior is calm, cooperative. lg3 Pain: Complains of pain in back Pain does not radiate. EENT: No deficits noted. No signs and/or symptoms were reported regarding the EENT system. Neuro: No deficits noted. Holley Agitation-Sedation Scale (RASS): 0 - Alert and Calm Level of Consciousness is awake, alert, obeys commands, Oriented to person, place, time, situation. Cardiovascular: No deficits noted. Denies chest pain, shortness of breath, Capillary refill < 3 seconds Clubbing of nail beds is absent JVD is absent Patient's skin is warm and dry. Respiratory: No deficits noted. Airway is patent Respiratory effort is even, unlabored, Respiratory pattern is regular, symmetrical. GI: No deficits noted. Abdomen is flat, non-distended. : No signs and/or symptoms were reported regarding the genitourinary system. Derm: No deficits noted. No signs and/or symptoms reported regarding the dermatologic system. Skin is intact, is healthy with good turgor, Skin is dry, Skin is normal, Skin temperature is warm. Musculoskeletal: No deficits noted. Reports pain in back. Historical: - Allergies: 04:23 PENICILLINS; lg3 - Home Meds: 04:23 carbamazepine 200 mg Oral CM12 1 cap 2 times per day [Active]; lg3 - PMHx: 04:23 Diverticulitis; Seizures; lg3 - PSHx: 04:23 None; lg3 - Immunization history:: Adult Immunizations up to date. - Infectious Disease History:: Denies. - Social history:: Smoking status: Patient reports the use of cigarette tobacco products, smokes 1.5 packs per day, Patient uses alcohol, weekly. street drugs, marijuana. - Family history:: not pertinent. Screenin:29 [facility] ED Fall Risk Assessment (Adult) History of falling in the last 3 months, dd2 including since admission No falls in past 3 months (0 pts) Confusion or Disorientation No (0 pts) Intoxicated or Sedated No (0 pts) Impaired Gait No (0 pts) Mobility Assist Device Used No (0 pt) Altered Elimination No (0 pt) Score/Fall Risk Level 0 - 2 = Low Risk Oriented to surroundings, Maintained a safe environment, Educated pt \T\ family on fall prevention, incl call for assistance when getting out of bed, Hourly rounding (assess needs \T\ fall precautionary measures) done. Abuse screen: Denies threats or abuse. Nutritional screening: No deficits noted. Tuberculosis screening: No symptoms or risk factors identified. Assessment: :29 Reassessment: see triage for full assessment. dd2 07:15 General: Appears in no apparent distress. comfortable, well groomed, well developed, kc6 Behavior is calm, cooperative, appropriate for age. Pain: Complains of pain in back. Neuro: Level of Consciousness is awake, alert, obeys commands, Oriented to person, place, time, situation, Appropriate for age. Cardiovascular: Capillary refill < 3 seconds. Respiratory: Reports cough that is Airway is patent Trachea midline Respiratory effort is even, unlabored, Respiratory pattern is regular, symmetrical. GI: No signs and/or symptoms were reported involving the gastrointestinal system. : No signs and/or symptoms were reported regarding the genitourinary system. Urine is clear. EENT: No signs and/or symptoms were reported regarding the EENT system. Derm: No signs and/or symptoms reported regarding the dermatologic system. Skin is intact, is healthy with good turgor, Skin is pink, warm \T\ dry. Musculoskeletal: No signs and/or symptoms reported regarding the musculoskeletal system. Circulation, motion, and sensation intact. Capillary refill < 3 seconds, Range of motion: intact in all extremities. 08:09 Reassessment: Patient appears in no apparent distress at this time. No changes from kc6 previously documented assessment. Patient and/or family updated on plan of care and expected duration. Pain level reassessed. Patient is alert, oriented x 3, equal unlabored respirations, skin warm/dry/pink. 09:09 Reassessment: Patient appears in no apparent distress at this time. No changes from kc6 previously documented assessment. Patient and/or family updated on plan of care and expected duration. Pain level reassessed. Patient is alert, oriented x 3, equal unlabored respirations, skin warm/dry/pink. Vital Signs: 04:22 BP 129 / 91; Pulse 102; Resp 17 S; Temp 97.4(O); Pulse Ox 93% on R/A; Weight 83.91 kg lg3 (R); Height 5 ft. 10 in. (R); Pain 10/10; 05:43 BP 113 / 87; Pulse 90; Resp 17; Pulse Ox 97% ; Pain 5/10; dd2 06:07 BP 111 / 82; Pulse 90; Resp 16; Temp 97.4; Pulse Ox 95% ; Pain 3/10; bm8 08:09 BP 114 / 83; Pulse 89; Resp 16 S; Pulse Ox 95% on R/A; kc6 04:22 Body Mass Index 26.54 (83.91 kg, 177.8 cm) lg3 04:22 Pain Scale: Adult lg3 05:43 Pain Scale: Adult dd2 06:07 Pain Scale: Adult bm8 Chay Coma Score: 07:37 Eye Response: spontaneous(4). Motor Response: obeys commands(6). Verbal Response: sp4 oriented(5). Total: 15. ED Course: 04:13 Patient arrived in ED. gm2 04:14 Danica Terrell DO is Private Physician. gm2 04:18 YOHANA NICOLAS RN is Primary Nurse. dd2 04:23 Triage completed. lg3 04:23 Arm band placed on right wrist. lg3 04:26 Tahir Otoole MD is Attending Physician. vc1 04:27 Inserted saline lock: 22 gauge in right antecubital area, using aseptic technique. vc1 Blood collected. Flushed with 10 mL NS. 04:29 Patient has correct armband on for positive identification. Bed in low position. Call dd2 light in reach. Side rails up X 1. Provided Education on: call light, medications, procedures. Client placed on continuous cardiac and pulse oximetry monitoring. NIBP monitoring applied. Door closed. Lights dimmed. Verbal reassurance given. 04:29 No provider procedures requiring assistance completed. dd2 04:54 CT Abd/Pelvis - Without Contrast In Process Unspecified. EDMS 07:00 Report received from Yohana Nicolas RN. kc6 07:00 Pulse ox on. NIBP on. kc6 07:09 Urinalysis w/ reflexes Sent. kc6 07:33 US Abdomen Limited In Process Unspecified. EDMS 07:36 Gopal Kelly is Hospitalizing Provider. sp4 09:09 Patient admitted, IV remains in place. kc6 13:47 1219 CM attempted initial assessment, patient lying in bed with eyes closed, ane respirations even and unlabored. 1347 CM met with Mr. Ribeior at the bedside in the ED exam room. Patient identified by name and . Demographic sheet confirmed. Patient states he lives alone in a double wide trailer and that prior to admission, he performs ADLs independently and without physical limitation .No DME in the household, no HH, no home oxygen or other medical services at this time. No MPOA in place. Patient states his preferred plan is to return home upon discharge and states that his mother Marine can transport him home when he is discharged. CM team will continue to follow and coordinate care. Administered Medications: 04:34 Drug: Ondansetron IVP 4 mg IVP once; over 2 minutes Route: IVP; Site: right antecubital;dd2 04:49 Follow up: Response: No adverse reaction dd2 04:34 Drug: morphine IVP or IV 4 mg IVP once over 4 mins Route: IVP; Infused Over: 4 mins; dd2 Site: right antecubital; 04:49 Follow up: Response: No adverse reaction dd2 04:34 Drug: NS 0.9% IV 1000 ml IV at 1 bolus Per protocol; 1000 mL bolus Route: IV; Rate: 1 dd2 bolus; Site: right antecubital; 04:49 Follow up: Response: No adverse reaction dd2 05:34 Follow up: Response: No adverse reaction; IV Status: Completed infusion; IV Intake: dd2 1000ml 05:37 Drug: Methocarbamol PO 1500 mg PO once Route: PO; dd2 06:07 Follow up: Response: No adverse reaction dd2 05:37 Drug: Ketorolac IVP 30 mg IVP once Route: IVP; Site: right antecubital; dd2 05:52 Follow up: Response: No adverse reaction dd2 05:52 Drug: Insulin Regular Human IVP 8 units IVP once {Co-Signature: lg3 (Maryann Mccullough RN).} dd2 Route: IVP; Site: right antecubital; 06:07 Follow up: Response: No adverse reaction dd2 06:01 Drug: NS 0.9% IV 1000 ml IV at 1 bolus Per protocol; 1000 mL bolus Route: IV; Rate: 1 dd2 bolus; Site: right antecubital; 07:05 Follow up: Response: No adverse reaction; IV Status: Completed infusion; IV Intake: dd2 1000ml Medication: 04:29 VIS not applicable for this client. dd2 Point of Care Testing: Blood Glucose: 06:53 Blood Glucose: 267 mg/dL; dd2 Ranges: Intake: 05:34 IV: 1000ml; Total: 1000ml. dd2 07:05 IV: 1000ml; Total: 2000ml. dd2 Outcome: 07:37 Decision to Hospitalize by Provider. sp4 09:09 Admitted to ER Hold. Please see [facility] for further documentation. kc6 09:09 Condition: good 09:09 Instructed on the need for admit, 15:16 Patient left the ED. iw Signatures: Dispatcher [employer] EDMS Xenia Segovia RN RN iw Maryann Mccullough RN RN lg3 Ro Will RN RN vc1 Dionne Fu RN RN kc6 Tahir Otoole MD MD sp4 Margarita Noguera 2 Ant Ahmadi RN RN bm8 Iram Arora RN RN ane DAVIS, DIANA, RN RN dd2 Able, Maryann RN lg3
--- NOTE | 2023-11-08 07:38 | EDPHYS ---
Physician Documentation [facility] Name: Stephen Ribeiro Age: 38 yrs Sex: Male : 1985 Arrival Date: 11/08/2023 Time: 04:09 Bed 8 Private MD: Danica Terrell H ED Physician Tahir Otoole HPI: 11/07 05:09 This 38 yrs old Male presents to ER via Ambulatory with complaints of Low sp4 Back Pain, Cough. 07:37 38-year-old male with history of alcohol abuse, diverticulitis, seizures, presents with sp4 acute onset lower back pain associated with dry mouth.. Patient states he has never been diagnosed with diabetes in the past. Patient states he drinks significant volumes of alcohol beer and hard liquor daily.. Historical: - Allergies: 04:23 PENICILLINS; lg3 - Home Meds: 04:23 carbamazepine 200 mg Oral CM12 1 cap 2 times per day [Active]; lg3 - PMHx: 04:23 Diverticulitis; Seizures; lg3 - PSHx: 04:23 None; lg3 - Immunization history:: Adult Immunizations up to date. - Infectious Disease History:: Denies. - Social history:: Smoking status: Patient reports the use of cigarette tobacco products, smokes 1.5 packs per day, Patient uses alcohol, weekly. street drugs, marijuana. - Family history:: not pertinent. ROS: 07:37 Constitutional: Negative for fever, chills, and weight loss, positive for back sp4 pain , positive for dry mouth , positive for alcohol use. 07:37 All other systems are negative, Exam: 07:37 Constitutional: This is a well developed, well nourished patient who is awake, alert, sp4 and in no acute distress. Head/Face: Normocephalic, atraumatic. Eyes: Pupils equal round and reactive to light, extra-ocular motions intact. Lids and lashes normal. Conjunctiva and sclera are not injected. Cornea within normal limits. Periorbital areas with no swelling, redness, or edema. ENT: Nares patent. No nasal discharge, no septal abnormalities noted. Tympanic membranes are normal and external auditory canals are clear. Oropharynx with no redness, swelling, or masses, exudates, or evidence of obstruction, uvula midline. Mucous membranes moist. Neck: Trachea midline, no thyromegaly or masses palpated, and no cervical lymphadenopathy. Supple, full range of motion without nuchal rigidity, or vertebral point tenderness. Chest/axilla: Normal chest wall appearance and motion. Nontender with no deformity. No lesions are appreciated. Cardiovascular: Regular rate and rhythm with a normal S1 and S2. No gallops, murmurs, or rubs. Normal PMI, no JVD. No pulse deficits. Respiratory: Lungs have equal breath sounds bilaterally, clear to auscultation and percussion. No rales, rhonchi or wheezes noted. No increased work of breathing, no retractions or nasal flaring. Abdomen/GI: Soft, with normal bowel sounds. No distension or tympany. No guarding or rebound. No evidence of tenderness throughout. Back: No spinal tenderness. No costovertebral tenderness. Skin: Warm, dry with normal turgor. Normal color with no rashes, no lesions, and no evidence of cellulitis. MS/ Extremity: Pulses equal, no cyanosis. Neurovascular intact. Full, normal range of motion. Neuro: Awake and alert, GCS 15, oriented to person, place, time, and situation. Cranial nerves II-XII grossly intact. Motor strength 5/5 in all extremities. Sensory grossly intact. Psych: Awake, alert, with orientation to person, place and time. Behavior, mood, and affect are within normal limits Vital Signs: 04:22 BP 129 / 91; Pulse 102; Resp 17 S; Temp 97.4(O); Pulse Ox 93% on R/A; Weight 83.91 kg lg3 (R); Height 5 ft. 10 in. (R); Pain 10/10; 05:43 BP 113 / 87; Pulse 90; Resp 17; Pulse Ox 97% ; Pain 5/10; dd2 06:07 BP 111 / 82; Pulse 90; Resp 16; Temp 97.4; Pulse Ox 95% ; Pain 3/10; bm8 08:09 BP 114 / 83; Pulse 89; Resp 16 S; Pulse Ox 95% on R/A; kc6 04:22 Body Mass Index 26.54 (83.91 kg, 177.8 cm) lg3 04:22 Pain Scale: Adult lg3 05:43 Pain Scale: Adult dd2 06:07 Pain Scale: Adult bm8 Chay Coma Score: 07:37 Eye Response: spontaneous(4). Motor Response: obeys commands(6). Verbal Response: sp4 oriented(5). Total: 15. MDM: 04:28 Patient medically screened. sp4 05:57 ED course: EXAM: CTAbdomen and Pelvis Without Intravenous Contrast CLINICAL HISTORY: sp4 The patient is 38 years old and is Male; Kidney stones;Pain TECHNIQUE: Axial computed tomography images of the abdomen and pelvis without intravenous contrast. Sagittal and coronal reformatted images were created and reviewed. This CT exam was performed using one or more of the following dose reduction techniques: automated exposure control, adjustment of the mA and/or kV according to patient size, and/or use of iterative reconstruction technique. COMPARISON: No relevant prior studies available. FINDINGS: Lung bases: Calcified granuloma in the left lung base. No consolidation. ABDOMEN: Liver: Hepatic steatosis. Hepatomegaly. Gallbladder and bile ducts: Unremarkable. No calcified stones. No ductal dilation. Pancreas: Unremarkable. No ductal dilation. Spleen: Unremarkable. No splenomegaly. Adrenals: Unremarkable. No mass. Kidneys and ureters: Unremarkable. No obstructing stones. No hydronephrosis. Stomach and bowel: Scattered colonic diverticula. Stool throughout the colon. No obstruction. No mucosal thickening. PELVIS: Appendix: The appendix is normal. Bladder: Unremarkable. Reproductive: Unremarkable as visualized. ABDOMEN and PELVIS: Intraperitoneal space: Unremarkable. No free air. No significant fluid collection. Bones/joints: No acute fracture. No dislocation. Soft tissues: Unremarkable. Vasculature: Unremarkable. No abdominal aortic aneurysm. Lymph nodes: Unremarkable. No enlarged lymph nodes. IMPRESSION: No acute finding in the abdomen/pelvis. Electronically signed by: Barron Dale MD 11/08/2023 05:20 AM . 07:35 Differential diagnosis: strain, fracture, sciatica, contusion, Herniated disc UTI. Data sp4 reviewed: vital signs, nurses notes, old medical records, lab test result(s), radiologic studies, CT scan, ultrasound. Consideration of Admission/Observation Patient was admitted/placed on observation. Escalation of care including admission/observation considered. Management of patient was discussed with the following: Hospitalist: Admit team . ED course: Patient has signs of acute pancreatitis she will be admitted for the same, Also for management of uncontrolled diabetes. 11/07 04:29 Order name: CBC with Diff lg3 11/07 04:29 Order name: CMP; Complete Time: 07:08 lg3 11/07 04:29 Order name: Lipase; Complete Time: 07:08 lg3 11/07 04:29 Order name: Urinalysis w/ reflexes; Complete Time: 07:41 lg3 11/07 05:48 Order name: Glucose, Ancillary Testing; Complete Time: 06:35 EDMS 11/07 07:03 Order name: Manual Differential EDMS 11/07 07:05 Order name: Glucose, Ancillary Testing; Complete Time: 07:08 EDMS 11/07 07:08 Order name: Lipase sp4 11/07 07:14 Order name: Alcohol Level sp4 11/07 07:59 Order name: Hemoglobin A1c EDMS 11/07 07:59 Order name: Urinalysis w/ reflexes EDMS 11/07 07:59 Order name: Urine Drug Screen EDMS 11/07 07:59 Order name: CBC with Automated Diff EDMS 11/07 07:59 Order name: CBC with Automated Diff EDMS 11/07 07:59 Order name: CBC with Automated Diff EDMS 11/07 07:59 Order name: CBC with Automated Diff EDMS 11/07 07:59 Order name: Magnesium EDMS 11/07 07:59 Order name: Magnesium EDMS 11/07 07:59 Order name: Magnesium EDMS 11/07 07:59 Order name: Magnesium EDMS 11/07 07:59 Order name: Phosphorus EDMS 11/07 07:59 Order name: Phosphorus EDMS 11/07 07:59 Order name: Phosphorus EDMS 11/07 07:59 Order name: Phosphorus EDMS 11/07 08:06 Order name: Comprehensive Metabolic Panel EDMS 11/07 08:06 Order name: Comprehensive Metabolic Panel EDMS 11/07 08:06 Order name: Comprehensive Metabolic Panel EDMS 11/07 08:06 Order name: Comprehensive Metabolic Panel EDMS 11/07 08:06 Order name: Lipase EDMS 11/07 08:06 Order name: Lipase EDMS 11/07 08:06 Order name: Lipase EDMS 11/07 08:06 Order name: Lipase EDMS 11/07 08:12 Order name: Lipid Profile EDMS 11/07 09:14 Order name: LDL, Direct EDMS 11/07 10:59 Order name: Glucose, Ancillary Testing EDMS 11/07 04:29 Order name: CT Abd/Pelvis - Without Contrast lg3 11/07 07:08 Order name: US Abdomen Limited sp4 11/07 07:59 Order name: EKG Electrocardiogram EDSD 11/07 04:29 Order name: IV Saline Lock; Complete Time: 04:30 lg3 11/07 04:29 Order name: Labs collected and sent; Complete Time: 04:30 lg3 11/07 05:21 Order name: Accucheck Blood Glucose; Complete Time: 05:37 sp4 Administered Medications: 04:34 Drug: Ondansetron IVP 4 mg IVP once; over 2 minutes Route: IVP; Site: right antecubital;dd2 04:49 Follow up: Response: No adverse reaction dd2 04:34 Drug: morphine IVP or IV 4 mg IVP once over 4 mins Route: IVP; Infused Over: 4 mins; dd2 Site: right antecubital; 04:49 Follow up: Response: No adverse reaction dd2 04:34 Drug: NS 0.9% IV 1000 ml IV at 1 bolus Per protocol; 1000 mL bolus Route: IV; Rate: 1 dd2 bolus; Site: right antecubital; 04:49 Follow up: Response: No adverse reaction dd2 05:34 Follow up: Response: No adverse reaction; IV Status: Completed infusion; IV Intake: dd2 1000ml 05:37 Drug: Methocarbamol PO 1500 mg PO once Route: PO; dd2 06:07 Follow up: Response: No adverse reaction dd2 05:37 Drug: Ketorolac IVP 30 mg IVP once Route: IVP; Site: right antecubital; dd2 05:52 Follow up: Response: No adverse reaction dd2 05:52 Drug: Insulin Regular Human IVP 8 units IVP once {Co-Signature: lg3 (Maryann Mccullough RN).} dd2 Route: IVP; Site: right antecubital; 06:07 Follow up: Response: No adverse reaction dd2 06:01 Drug: NS 0.9% IV 1000 ml IV at 1 bolus Per protocol; 1000 mL bolus Route: IV; Rate: 1 dd2 bolus; Site: right antecubital; 07:05 Follow up: Response: No adverse reaction; IV Status: Completed infusion; IV Intake: dd2 1000ml Point of Care Testing: Blood Glucose: 06:53 Blood Glucose: 267 mg/dL; dd2 Ranges: Critical Glucose Levels:Adult <50 mg/dl or >400 mg/dl <40 mg/dl or >180 mg/dl Disposition Summary: 11/08/23 07:37 Hospitalization Ordered Notes: Hospitalization Status: Inpatient Admission sp4 Provider: Gopal Kelly Condition: Stable sp4 Problem: new sp4 Symptoms: have improved sp4 Bed/Room Type: Standard sp4 Location: Telemetry/MedSurg (Inpatient)(11/08/23 13:50) bd Room Assignment: 230(11/08/23 13:50) bd Diagnosis - Alcoholic pancreatitis, uncontrolled diabetes, hyperglycemia, dehydration, acute sp4 lower back pain Forms: - Medication Reconciliation Form sp4 - SBAR form sp4 - Leadership Thank You Letter sp4 Signatures: Dispatcher [employer] EDMS ConnieKaylyn nichols Xenia Cordova, RN RN iw Jamel, GOPAL Wolf RN lg3 Tahir Otoole MD MD sp4 MYLES LUNA RN RN dd2 Maryann Mccullough RN lg3 Corrections: (The following items were deleted from the chart) 04:29 04:29 Abdomen Pelvis Wo Con+CT.RAD.BRZ ordered. EDMS EDMS 08:06 07:59 Basic Metabolic Panel ordered. EDMS EDMS 08:06 07:59 Basic Metabolic Panel ordered. EDMS EDMS 08:06 07:59 Basic Metabolic Panel ordered. EDMS EDMS 08:06 07:59 Basic Metabolic Panel ordered. EDMS EDMS 08:12 07:59 Lipid Profile ordered. EDMS EDMS 09:19 07:37 Telemetry/MedSurg (Inpatient) sp4 iw 09:19 07:37 sp4 iw 13:50 09:19 BR ER HOLD iw bd 13:50 09:19 ERHOLD- iw bd
[2023-11-08] MEDS ORDERED: ACETAMINOPHEN 325 MG TABLET PO PRN (07:51)
[2023-11-08] MEDS: NA CHLORIDE 0.9% 1,000 ML IV SCH (08:00)
--- NOTE | 2023-11-08 08:03 | P.HP ---
Certification for Inpatient Patient admitted to: Inpatient With expected LOS: >2 Midnights Practitioner: I am a practitioner with admitting privileges, knowledge of patient current condition, hospital course, and medical plan of care. Services: Services provided to patient in accordance with Admission requirements found in Title 42 Section 412.3 of the Code of Federal Regulations Patient History Date of Service: 11/08/23 Reason for admission: Acute pancreatitis History of Present Illness: Stephen Ribeiro is a 38 year old male with Pmhx seizures who presents to the ED with c/o bilateral lower back pain radiating to the abdomen. Laboratory evaluation showing lipase at 468, liver function normal, Glucose >300, and UA negative. CT abd/pelvis negative for acute findings, US abdomen reports "Gallbladder sludge. No sonographic evidence of cholelithiasis or acute cholecystitis." Stephen reports smoking 1.5 cigarettes daily, large consumtpion of alcohol, and using marijuana for seizure management. He denies diabetes diagnosis and sees a PCP "once in a while" and mainly seeing Dr. Alford for his seizures. Initial vitals BP 129 / 91; Pulse 102; Resp 17 S; Temp 97.4(O); Pulse Ox 93% on R/A Stephen will be admitted to hospitalist service for further treatment of Acute pancreatitis. Allergies Penicillins Allergy (Intermediate, Verified 10/26/11 21:32) Hives/Rash Home Medications: Carbamazepine [Tegretol] 200 mg PO BID 11/08/23 - Past Medical/Surgical History -: seizures - Social History Smoking Status: Current every day smoker (1.5 packs daily) Alcohol use: Yes CD- Drugs: Yes Review of Systems Musculoskeletal: Back Pain Physical Examination - Physical Exam General: Alert, In no apparent distress, Oriented x3 HEENT: Atraumatic, Normocephalic, PERRLA Neck: Supple, 2+ carotid pulse no bruit Respiratory: Clear to auscultation bilaterally, Normal air movement Cardiovascular: Normal pulses, Regular rate/rhythm, Normal S1 S2 Capillary refill: <2 Seconds Gastrointestinal: Normal bowel sounds, Soft and benign, No tenderness Musculoskeletal: No clubbing Integumentary: No rashes Neurological: Normal speech, Normal tone - Studies Laboratory Data (last 24 hrs) 11/08/23 11/08/23 06:16 06:16 WBC 5.60 Hgb 14.1 Hct 42.0 Plt Count 259 Sodium 135 L Potassium 3.9 BUN 9 Creatinine 0.89 Glucose 313 H Total Bilirubin 0.3 AST 23 ALT 29 Alkaline Phosphatase 57 Lipase 468 H Assessment and Plan - Plan Assessment and Plan Acute pancreatitis 2/2 Hypertriglyceridemia Back pain radiating to abdomen -Admit to ICU with insulin gtt, Q1h glucose monitoring -D10 50 ml/hr when glucose < 150 -Triglyceride >3940, Q4h redraw -Insulin resolution when Triglyceride is <500 -CT abd/pelvis negative for acute findings -Ultrasound report pending -NS 2 Liters given in ED, will continue aggressive IVF -Lipase 468, will trend -Lipid panel elevated Diabetes mellitus -new diagnosis -serum glucose > 300 -A1C 11.5 Sezu[place] -reports marijuana and carbamazipiine -Continue home medications -Follow up with Dr. Alford outpatient Substance abuse -Alcohol ETOH -tobacco smoking 1.5 packs daily -Marijuana for seizures -UDS THC, Alcohol negative DVT ppx Lovenox Full code LOS 2 days Discharge Plan: Home Plan to discharge in: 48 Hours - Advance Directives Does patient have a Living Will: No Does patient have a Durable POA for Healthcare: No
--- NOTE | 2023-11-08 08:41 | RAD REPORT ---
EXAM: CTAbdomen and Pelvis Without Intravenous Contrast CLINICAL HISTORY: The patient is 38 years old and is Male; Kidney stones;Pain TECHNIQUE: Axial computed tomography images of the abdomen and pelvis without intravenous contrast. S agittal and coronal reformatted images were created and reviewed. This CT exam was performed using one or more of the fol lowing dose reduction techniques: automated exposure control, adjustment of the mA and/or kV according to patient size, and /or use of iterative reconstruction technique. COMPARISON: No relevant prior studies available. FINDINGS: Lung bases: Calcified granuloma in the left lung base. No consolidation. ABDOMEN: Liver: Hepatic steatosis. Hepatomegaly. Gallbladder and bile ducts: Unremarkable. No calcified stones. No ductal dilation. Pancreas: Unremarkable. No ductal dilation. Spleen: Unremarkable. No splenomegaly. Adrenals: Unremarkable. No mass. Kidneys and ureters: Unremarkable. No obstructing stones. No hydronephrosis. Stomach and bowel: Scattered colonic diverticula. Stool throughout the colon. No obstruction. No mucosal thickening. PELVIS: Appendix: The appendix is normal. Bladder: Unremarkable. Reproductive: Unremarkable as visualized. ABDOMEN and PELVIS: Intraperitoneal space: Unremarkable. No free air. No significant fluid collection. Bones/joints: No acute fracture. No dislocation. Soft tissues: Unremarkable. Vasculature: Unremarkable. No abdominal aortic aneurysm. Lymph nodes: Unremarkable. No enlarged lymph nodes. IMPRESSION: No acute finding in the abdomen/pelvis. Electronically signed by: Barron Dale MD 11/08/2023 05:20 AM CDT Due to temporary technical issues with the PACS/[employer] reporting system, reports are being irma d by the in-house radiologist without review as a courtesy to ensure prompt reporting the interpreting radiologist is fully responsible for the content of the report. Transcribed Date/Time: 11/08/2023 8:41 AM
[2023-11-08 08:45] VITALS: BMI 26.1
[2023-11-08] MEDS ORDERED: ENOXAPARIN 40 MG/0.4 ML SQ SCH (09:00)
--- NOTE | 2023-11-08 09:00 | RAD REPORT ---
EXAMINATION: Abdomen Exam Limited CLINICAL HISTORY: [facility] N ABD PAIN Bed Name: 8 COMPARISON: CT abdomen and pelvis 11/08/2023 FINDINGS: Gallbladder: Low-level echoes throughout the bladder suggesting sludge. No gallstones. No wall thicke cecilio or pericholecystic fat stranding. No reported positive sonographic Hong sign. Bile ducts: No intrahepatic or extrahepatic biliary dilatation. Common bile duct measures 5 mm. Liver: Visualized portions of the liver demonstrate normal echogenicity with no suspicious findings. Fluid: No ascites. IMPRESSION: Gallbladder sludge. No sonographic evidence of cholelithiasis or acute cholecystitis.
[2023-11-08 09:02] LABS: HDL Cholesterol 37 mg/dL (40-60); Lipase 518 U/L (13-75)
[2023-11-08 09:03] LABS: Barbiturates NEGATIVE (NEGATIVE); Benzodiazepines NEGATIVE (NEGATIVE); Cocaine NEGATIVE (NEGATIVE); METHAMPHETAM NEGATIVE (NEGATIVE); Methadone NEGATIVE (NEGATIVE); Opiates POSITIVE (NEGATIVE); Phencyclidine NEGATIVE (NEGATIVE); THC Cannibis POSITIVE (NEGATIVE)
[2023-11-08 09:14] LABS: LDL, Direct 82 mg/dL (100-129)
[2023-11-08 09:36] LABS: Blood Morphology Comment NOT SEEN (NOT SEEN); Differential Total Cells Count 100; Eosinophils 4 % (0-3); Lymphocytes 43 % (15-42); Monocytes 8 % (0-10); Platelet Estimate ADEQ; Segmented Neutrophils 45 % (40-80)
[2023-11-08] MEDS ORDERED: MORPHINE 2 MG/ML SYR ONE (10:38)
[2023-11-08] MEDS: MORPHINE 2 MG/ML SYR IV PRN (10:50)
[2023-11-08] MEDS: INSULIN REGULAR (HUMAN) 100 UNIT/ML SQ SCH (11:30)
[2023-11-08] MEDS ORDERED: D50W 25 GM/50 ML SYRINGE IV PRN (15:26)
[2023-11-08] MEDS ORDERED: GLUCAGON 1 MG/VIAL IM PRN (15:26)
[2023-11-08] MEDS ORDERED: INSULIN REGULAR, HUMAN 100 UNIT in NA CHLORIDE 0.9% 100 ML IV SCH (16:00)
[2023-11-08] MEDS: INSULIN REGULAR, HUMAN 100 UNIT in NA CHLORIDE 0.9% 100 ML IV SCH (16:16)
[2023-11-08] MEDS: D5 0.9 NS 1,000 ML IV SCH (18:09)
[2023-11-08] MEDS: carBAMazepine 200 MG TAB PO SCH (21:34)
[2023-11-09] MEDS: D10W 125 ML IV PRN (01:04)
[2023-11-09 04:59] LABS: Absolute Basophils 0.2 K/uL (0-0.5); Absolute Eosinophils 0.2 K/uL (0-0.5); Absolute Lymphocytes (CBC) 1.9 K/uL (0.7-4.9); Absolute Monocytes 0.4 K/uL (0.1-1.3); Absolute Neutrophil 4.4 K/uL (1.8-8.0); Basophils % 3.4 % (0-1.3); Eosinophils % 3.3 % (0-4.4); Hematocrit 38.9 % (39.6-49.0); Hemoglobin 13.9 g/dL (13.6-17.9); Lymphocytes % 26.9 % (15.3-44.8); MCH 32.9 pg (27.0-35.0); MCHC 35.8 g/dL (32.0-36.0); MCV 91.7 fL (80-100); MPV 8.9 fL (7.6-11.3); Monocytes % 5.4 % (3.3-12.3); Nucleated Red Blood Cells % 0.1 % (0-0); Platelets 250 thou/uL (152-406); RBC Red Blood Cell Count 4.24 M/uL (4.33-5.43); Red Cell Distribution Width 12.5 % (12.1-15.2)
[2023-11-09 05:41] LABS: Albumin 2.5 g/dL (3.4-5.0); Albumin/Globulin Ratio 0.7 (1.1-1.8); Anion Gap 10.1 mEq/L (5.0-15.0); Bilirubin Total 0.3 mg/dL (0.2-1.0); Globulin 3.7 g/dL (2.3-3.5); Phosphorus 3.3 mg/dL (2.5-4.9); Potassium 3.1 mEq/L (3.5-5.1); Protein, Total 6.2 g/dL (6.4-8.2)
[2023-11-09 05:45] LABS: Band Neutrophils 3 % (0-1); Differential Total Cells Count 100; Eosinophils 6 % (0-3); Lymphocytes 23 % (15-42); Monocytes 9 % (0-10); Reactive Lymphocytes 1 %; Segmented Neutrophils 57 % (40-80)
[2023-11-09 05:46] LABS: Blood Morphology Comment NOT SEEN (NOT SEEN); Platelet Estimate ADEQ
[2023-11-09] MEDS: KCL 20 MEQ/100 mL IVPB 20 MEQ/100 ML BAG IV SCH ×2 (09:01→13:03)
[2023-11-09] MEDS: ENOXAPARIN 40 MG/0.4 ML SQ SCH (09:01)
[2023-11-09] MEDS: INSULIN REGULAR, HUMAN 100 UNIT in NA CHLORIDE 0.9% 100 ML IV SCH (09:01)
[2023-11-09] MEDS: FENOFIBRATE 160 MG TAB PO SCH (10:36)
[2023-11-09] MEDS: methocarbamoL 500 MG TAB PO PRN (12:11)
[2023-11-09 12:35] LABS: Anion Gap 7.5 mEq/L (5.0-15.0)
[2023-11-09 12:36] LABS: Potassium 3.5 mEq/L (3.5-5.1)
--- NOTE | 2023-11-09 13:27 | P.PN ---
Date of Service: 11/09/23 Subjective Awake with no new complaints He is missing beer and eating food Continue insulin gtt, triglycerides remain elevated ROS 10 point ROS as noted above, otherwise negative Physical Exam General: Alert and Oriented x3, NAD HEENT: Atraumatic, Normocephalic, PERRLA Neck: Supple, 2+ carotid pulse no bruit Respiratory: Clear to auscultation bilaterally, Normal air movement Cardiovascular: Normal pulses, RRR, Normal S1 S2 Capillary refill: <2 Seconds Gastrointestinal: Normal bowel sounds, Soft on palpation, No tenderness Musculoskeletal: No clubbing Integumentary: No rashes Neurological: Normal speech, Normal tone Vitals Reviewed Problem list Acute pancreatitis 2/2 Hypertriglyceridemia Back pain radiating to abdomen Diabetes mellitus with hyperglycemia Sezuires Substance abuse Assessment and Plan Acute pancreatitis 2/2 Hypertriglyceridemia Back pain radiating to abdomen -Admit to ICU with insulin gtt, Q1h glucose monitoring -D10 125 ml/hr when glucose < 150 -Initial Triglyceride >3872, Daily redraw -Insulin resolution when Triglyceride is <500 -CT abd/pelvis negative for acute findings -Ultrasound report pending -NS 2 Liters given in ED, will continue aggressive IVF -Lipase 103, will continue to trend -Lipid panel elevated -NPO Diabetes mellitus with hyperglycemia -new diagnosis -monitor while on insulin gtt -serum glucose 143- improved -A1C 11.5 Sezu[place] -reports marijuana and carbamazipiine -Continue home medications -Follow up with Dr. Alford outpatient -Carbamazepine level 1.9, not therapeutic Substance abuse -Alcohol ETOH -tobacco smoking 1.5 packs daily -Marijuana for seizures -UDS THC, Alcohol negative DVT ppx Lovenox Full code LOS 2 days Discharge Plan: Home Plan to discharge in: 48 Hours
[2023-11-09] MEDS: KETOROLAC 30 MG/ML INJ IV ONE (17:05)
[2023-11-09] MEDS: LIDOCAINE 4% PATCH TOP SCH (18:52)
[2023-11-10] MEDS ORDERED: KETOROLAC 30 MG/ML INJ IV PRN (02:18)
[2023-11-10] MEDS: KETOROLAC 30 MG/ML INJ IV PRN (07:18)
[2023-11-10 07:38] VITALS: O2SAT 96
[2023-11-10 08:12] LABS: Hematocrit 38.1 % (39.6-49.0); Hemoglobin 13.4 g/dL (13.6-17.9); MCH 32.1 pg (27.0-35.0); MCHC 35.2 g/dL (32.0-36.0); MCV 91.1 fL (80-100); MPV 7.9 fL (7.6-11.3); Platelets 241 thou/uL (152-406); RBC Red Blood Cell Count 4.19 M/uL (4.33-5.43); Red Cell Distribution Width 12.5 % (12.1-15.2)
[2023-11-10 08:12] LABS: Albumin 2.6 g/dL (3.4-5.0); Albumin/Globulin Ratio 0.8 (1.1-1.8); Anion Gap 10.1 mEq/L (5.0-15.0); Bilirubin Total 0.2 mg/dL (0.2-1.0); Globulin 3.4 g/dL (2.3-3.5); Magnesium 1.8 mg/dL (1.6-2.4); Phosphorus 3.3 mg/dL (2.5-4.9); Potassium 3.1 mEq/L (3.5-5.1)
[2023-11-10] MEDS ORDERED: FENOFIBRATE 160 MG TAB PO SCH (09:00)
[2023-11-10] MEDS ORDERED: LIDOCAINE 4% PATCH TOP SCH (09:00)
[2023-11-10 09:51] LABS: Atypical Lymphocytes 5 %; Blood Morphology Comment NOT SEEN (NOT SEEN); Differential Total Cells Count 100; Eosinophils 8 % (0-3); Lymphocytes 28 % (15-42); Monocytes 9 % (0-10); Platelet Estimate ADEQ; Segmented Neutrophils 49 % (40-80)
[2023-11-10 12:24] VITALS: BP 124/83; TEMP 97.6
--- NOTE | 2023-11-10 12:25 | P.DS ---
Admission Date: 11/08/23 Discharge Date: 11/10/23 Disposition: ROUTINE DISCHARGE Discharge Condition: FAIR Reason for Admission: Acute pancreatitis Brief History of Present Illness: Diagnosis Acute pancreatitis 2/2 Hypertriglyceridemia Back pain radiating to abdomen Diabetes mellitus with hyperglycemia [place] Substance abuse HPI 11/08/2023 Stephen Ribeiro is a 38 year old male with Pmhx seizures who presents to the ED with c/o bilateral lower back pain radiating to the abdomen. Laboratory evaluation showing lipase at 468, liver function normal, Glucose >300, and UA negative. CT abd/pelvis negative for acute findings, US abdomen reports "Gallbladder sludge. No sonographic evidence of cholelithiasis or acute cholecystitis." Stephen reports smoking 1.5 cigarettes daily, large consumtpion of alcohol, and using marijuana for seizure management. He denies diabetes diagnosis and sees a PCP "once in a while" and mainly seeing Dr. Alford for his seizures. Initial vitals BP 129 / 91; Pulse 102; Resp 17 S; Temp 97.4(O); Pulse Ox 93% on R/A Stephen will be admitted to hospitalist service for further treatment of Acute pancreatitis. Hospital Course: Stephen Ribeiro is a pleasant 38-year-old male with a past medical history significant for seizures and substance abuse who was admitted to the [facility] on 11/08/2023 for acute pancreatitis. Stephen presented to the ED with chief complaint of bilateral lower back pain. While in the ED, CT abdomen pelvis negative for acute findings, ultrasound abdomen reports "gallbladder sludge. No sonographic evidence of cholelithiasis or acute cholecystitis". Lab values with lipase at 468, liver function normal, glucose > 300, and UA negative. He does report large consumptions of alcohol, 1-1/2 packs of cigarettes daily, and uses marijuana for seizure management. He has not follow-up with a PCP but he does see Dr. Alford for his seizure management. He was admitted for acute pancreatitis based on lipase and triglyceride level >3940. He was admitted to the ICU with an insulin drip and aggressive monitoring of electrolytes and glucose level. He has a new onset of diabetes mellitus based on A1c at 11.5. He remained n.p.o. until discharge. His triglyceride level decreased to 598 and serum glucose regulated at 91. Alcohol and substance abuse cessation education provided. He will be discharged home with good family support. On 11/10/2023, Stephen was seen on morning rounds and deemed medically stable for discharge. Stephen was discharged with instructions to schedule follow-up appointments with PCP. Stephen was provided prescriptions for metformin, Robaxin, Tricor. Physical Exam General: Awake alert and oriented x3, NAD HEENT: Atraumatic, Normocephalic, PERRLA Neck: Supple, 2+ carotid pulse no bruit Respiratory: Clear to auscultation bilaterally, Normal air movement, on Room Air Cardiovascular: Normal pulses, NSR, Normal S1 S2, no murmur noted Capillary refill: <2 Seconds Gastrointestinal: Normal bowel sounds, Soft and benign on palpation, ND/NT Musculoskeletal: No clubbing Integumentary: No rashes Neurological: Normal speech, Normal tone Vital Signs/Physical Exam: Temp Pulse Resp BP Pulse Ox 97.6 F 88 24 H 124/83 99 11/10/23 12:00 11/10/23 12:00 11/10/23 12:00 11/10/23 12:00 11/10/23 12:00 Laboratory Data at Discharge: WBC 6.20 thou/uL (4.3-10.9) 11/10/23 07:55 Hgb 13.4 g/dL (13.6-17.9) L 11/10/23 07:55 Hct 38.1 % (39.6-49.0) L 11/10/23 07:55 Plt Count 241 thou/uL (152-406) 11/10/23 07:55 Sodium 141 mEq/L (136-145) D 11/10/23 06:43 Potassium 3.1 mEq/L (3.5-5.1) L 11/10/23 06:43 BUN 5 mg/dL (7-18) L 11/10/23 06:43 Creatinine 0.76 mg/dL (0.70-1.30) 11/10/23 06:43 Glucose 91 mg/dL (74-106) 11/10/23 06:43 Phosphorus 3.3 mg/dL (2.5-4.9) 11/10/23 06:43 Magnesium 1.8 mg/dL (1.6-2.4) 11/10/23 06:43 Total Bilirubin 0.2 mg/dL (0.2-1.0) 11/10/23 06:43 AST 101 U/L (15-37) H 11/10/23 06:43 ALT 87 U/L (16-61) H 11/10/23 06:43 Alkaline Phosphatase 62 U/L (45-117) D 11/10/23 06:43 Triglycerides 598 mg/dL (<150) H 11/10/23 06:43 Cholesterol 418 mg/dL (<200) H 11/08/23 08:05 LDL Cholesterol Direct 82 mg/dL (100-129) L 11/08/23 08:05 HDL Cholesterol 37 mg/dL (40-60) L 11/08/23 08:05 Cholesterol/HDL Ratio 11.30 11/08/23 08:05 Lipase 45 U/L (13-75) 11/10/23 06:43 Home Medications: Carbamazepine [Tegretol] 200 mg PO BID 11/08/23 Fenofibrate [Tricor*] 160 mg PO DAILY 30 Days #30 tab 11/10/23 Metformin ER [Glucophage ER*] 500 mg PO BID 30 Days #60 tab.sa 11/10/23 carBAMazepine [Tegretol*] 200 mg PO BID tab 11/10/23 methocarbamoL [Robaxin*] 1,000 mg PO TID PRN 7 Days #21 tab 11/10/23 New Medications: Metformin ER [Glucophage ER*] 500 mg PO BID 30 Days #60 tab.sa methocarbamoL [Robaxin*] 1,000 mg PO TID PRN 7 Days #21 tab PRN Reason: Muscle Spasms Fenofibrate [Tricor*] 160 mg PO DAILY 30 Days #30 tab Physician Discharge Instructions: PROBLEM: Acute Pancreatitis GOAL: Clear understanding of disease process INSTRUCTIONS: 1. Please call and schedule a follow-up appointment with your PCP in 3-5 days - Please follow-up with your PCP for medication refills/adjustments -Adjustment may need to be made to metformin, please record blood glucose readings twice a day for your doctor to evaluate -Starting fenofibrate 160 mg p.o. daily -Please roll picker glucometer, testing strips, alcohol wipe, and lancets to monitor glucose level, Goal level to be less than 150 but greater than 80 2. Please call and schedule a follow-up appointment with Dr. Jesu in two weeks for pancreatitis evaluation 3. Continue diabetic diet, refrain from alcohol as your body recovers 4. No activity restrictions 5. Return to the ED if symptoms worsen 6. If symptoms worsen, please go to the ER or call 911. 7. If you have any questions regarding hospital stay, feel free to call . New medications Metformin 500 mg p.o. twice daily Robaxin 1000 mg p.o. as needed 3 times daily x 7 days Fenofibrate 160 mg p.o. daily x 30 days Diet: ADA Activity: Ad main DME DME: Date Ordered: Name of Company: [employer] Services Needed: None Name of Company: Date or Referral: IMMUNIZATION Influenza Vaccine Indicated: Influenza Vaccine Given: Date Given: Pneumonia Vaccine Indicated: No Pneumonia Vaccine Given: Date Given: Diet: ADA Activity: Ad main Followup: Danica Terrell DO, DO [Primary Care Provider] -
== END 2023-11-10 13:34 | disposition home or self-care (01) | DRG 440 ==
LOC: ER 04:09 → ERHOLD 07:51 → 2ND 14:43 → 3RD-ICU 16:02
PROVIDERS: ADMIT Internal Medicine; ATTEND Internal Medicine
DX: K85.20 Alcohol induced acute pancreatitis without necrosis or infection (principal); E11.65 Type 2 diabetes mellitus with hyperglycemia; E86.0 Dehydration; E78.1 Pure hyperglyceridemia; F10.10 Alcohol abuse, uncomplicated; F17.210 Nicotine dependence, cigarettes, uncomplicated; R56.9 Unspecified convulsions; Z88.0 Allergy status to penicillin; Y90.0 Blood alcohol level of less than 20 mg/100 ml
CPT/HCPCS: 36415; 74176; 76705; 80048; 80053; 80061; 80156; 80307; 81003; 82077; 82947; 83036; 83690; 83735; 84100; 84478; 85025; 96361; 96374; 96375; 99285; J1650; J2001; J2270; J2405; J3480; J7030; J7042

== ENCOUNTER 2024-04-01 22:25 | Emergency (ER) | payer OTHER ==
[2024-04-01] MEDS ORDERED: NA CHLORIDE 0.9% 1,000 ML ONE (23:03)
[2024-04-01] MEDS ORDERED: MORPHINE 4 MG/ML SYR ONE (23:03)
[2024-04-01] MEDS ORDERED: FAMOTIDINE 20 MG/2 ML VIAL IV ONE (23:03)
[2024-04-01] MEDS ORDERED: ONDANSETRON 4 MG/2 ML VIAL ONE (23:03)
[2024-04-01 23:56] LABS: Absolute Basophils 0.1 K/uL (0-0.5); Absolute Eosinophils 0.3 K/uL (0-0.5); Absolute Lymphocytes (CBC) 2.5 K/uL (0.7-4.9); Absolute Monocytes 0.6 K/uL (0.1-1.3); Absolute Neutrophil 3.4 K/uL (1.8-8.0); Basophils % 1.1 % (0-1.3); Hemoglobin 15.6 g/dL (13.6-17.9); MCH 32.6 pg (27.0-35.0); MCHC 36.4 g/dL (32.0-36.0); MCV 89.6 fL (80-100); MPV 8.5 fL (7.6-11.3); Monocytes % 8.1 % (3.3-12.3); Neutrophils % 48.8 % (41.7-73.7); Nucleated Red Blood Cells % 0.1 % (0-0); Platelets 274 thou/uL (152-406); Red Cell Distribution Width 12.5 % (12.1-15.2)
[2024-04-02 00:34] LABS: Albumin 3.4 g/dL (3.4-5.0); Albumin/Globulin Ratio 0.8 (1.1-1.8); Anion Gap 8.7 mEq/L (5.0-15.0); Bilirubin Total 0.2 mg/dL (0.2-1.0); Globulin 4.4 g/dL (2.3-3.5); Protein, Total 7.8 g/dL (6.4-8.2)
[2024-04-02 00:35] LABS: Potassium 3.7 mEq/L (3.5-5.1)
--- NOTE | 2024-04-02 00:39 | ER ---
Nurse's Notes [facility] Name: Stephen Ribeiro Age: 38 yrs Sex: Male : 1985 Arrival Date: 04/01/2024 Time: 22:25 Bed 12 Private MD: Diagnosis: Infectious gastroenteritis and colitis, unspecified Presentation: 04/01 22:36 Chief complaint: Patient states: c/o left sided pain that radiates to his back, started me1 Monday. Pain /, worse after eating with c/o diarrhea after eating as well. Denies n/v. Hx: pancreatitis. Coronavirus screen: Vaccine status: Patient reports being unvaccinated. Ebola Screen: No symptoms or risks identified at this time. Initial Sepsis Screen: Does the patient meet any 2 criteria? No. Patient's initial sepsis screen is negative. Does the patient have a suspected source of infection? No. Patient's initial sepsis screen is negative. Risk Assessment: Do you want to hurt yourself or someone else? Patient reports no desire to harm self or others. Onset of symptoms was March 29, 2024. 22:36 Method Of Ar[place] [facility] [place]:36 Acuity: TRISH 3 me1 Historical: - Allergies: 22:38 PENICILLINS; me1 - Home Meds: 22:38 carbamazepine 200 mg Oral CM12 1 cap 2 times per day [Active]; fenofibrate 160 mg oral me1 tablet 1 tab daily [Active]; metformin 500 mg Oral tablet 1 tab 2 times per day for type 2 diabetes mellitus [Active]; Robaxin Oral 1000 mg every 8 hours for Pain Control [Active]; - PMHx: 22:38 Diverticulitis; Seizures; Pancreatitis; Diabetes mellitus; me1 - PSHx: 22:38 None; me1 - Immunization history:: Adult Immunizations up to date. - Infectious Disease History:: Denies. - Social history:: Smoking status: Patient reports the use of cigarette tobacco products, smokes one pack cigarettes per day. Screenin:36 [facility] ED Fall Risk Assessment (Adult) History of falling in the last 3 months, br2 including since admission No falls in past 3 months (0 pts) Confusion or Disorientation No (0 pts) Intoxicated or Sedated No (0 pts) Impaired Gait No (0 pts) Mobility Assist Device Used No (0 pt) Altered Elimination No (0 pt) Score/Fall Risk Level 0 - 2 = Low Risk Oriented to surroundings. Abuse screen: Denies threats or abuse. Denies injuries from another. Nutritional screening: No deficits noted. Tuberculosis screening: No symptoms or risk factors identified. Vital Signs: 22:36 BP 135 / 98; Pulse 104; Resp 18; Temp 98.4; Pulse Ox 99% ; Weight 90.72 kg; Height 5 me1 ft. 10 in. ; Pain 09/29; 04/02 00:38 BP 123 / 92; Pulse 86; ec2 01:13 BP 120 / 90 Standing; Pulse 80; Resp 18; Pulse Ox 99% on R/A; br2 04/01 22:36 Body Mass Index 28.70 (90.72 kg, 177.8 cm) me1 04/01 22:36 Pain Scale: Adult ga1 ED Course: 04/01 22:27 Patient arrived in ED. ra3 22:28 Hever Morrissey MD is Attending Physician. ec2 22:36 Patient has correct armband on for positive identification. Bed in low position. Call br2 light in reach. Side rails up X 1. Provided Education on: PLAN OF CARE. 22:38 Triage completed. me1 22:38 Arm band placed on Patient placed in waiting room. me1 23:15 Inserted saline lock: 20 gauge in right antecubital area, using aseptic technique. br2 Blood collected. Flushed with 10 mL NS. 23:39 CT Abd/Pelvis - IV Contrast Only In Process Unspecified. EDMS 04/02 00:55 Rosalinda Murillo, RN is Primary Nurse. br2 Administered Medications: 04/01 23:10 Drug: NS 0.9% IV 1000 ml IV at 1 bolus Per protocol; to be given as a bolus over 60 br2 minutes Route: IV; Rate: 1 bolus; Site: right antecubital; 04/02 01:13 Follow up: IV Status: Completed infusion; IV Intake: 1000ml br2 04/01 23:15 Drug: Famotidine IVP 20 mg IVP once; dilute with 10 mL 0.9% NaCl; give over 2 minutes br2 Route: IVP; Site: right antecubital; 04/02 01:13 Follow up: Response: No adverse reaction br2 04/01 23:47 Drug: Ondansetron IVP 4 mg IVP once; over 2 minutes Route: IVP; Site: right antecubital;br2 04/02 01:13 Follow up: Response: No adverse reaction br2 04/01 23:47 Drug: morphine IVP or IV 4 mg IVP once over 4 mins Route: IVP; Infused Over: 4 mins; br2 Site: right antecubital; 04/02 01:13 Follow up: Response: No adverse reaction br2 Intake: 01:13 IV: 1000ml; Total: 1000ml. br2 Outcome: 00:38 Discharge ordered by . ec2 01:13 Discharged to home ambulatory, br2 01:13 Condition: stable 01:13 Discharge instructions given to patient, Instructed on discharge instructions, follow up and referral plans. Demonstrated understanding of instructions, follow-up care, medications, Prescriptions given X 2, 01:14 Patient left the ED. br2 Signatures: Dispatcher [employer] EDMagalie Vernon RN RN me1 Hever Morrissey MD MD ec2 Ritu Kelly ra3 Rosalinda Murillo RN RN br2 Corrections: (The following items were deleted from the chart) 04/01 22:44 22:38 Home Meds: Depakote Oral; me1 me1
--- NOTE | 2024-04-02 00:39 | EDPHYS ---
Physician Documentation [facility] Name: Stephen Ribeiro Age: 38 yrs Sex: Male : 1985 Arrival Date: 04/01/2024 Time: 22:25 Bed 12 Private MD: ED Physician Hever Morrissey HPI: 04/01 23:13 This 38 yrs old Male presents to ER via Ambulatory with complaints of Low Back Pain. ec2 23:13 Patient arrives today for abdominal pain radiating to low back. Reports has been having ec2 some abdominal pain that goes into the low back along with diarrhea. Patient reports history of pancreatitis and states this feels similar. Denies nausea. No vomiting.. Historical: - Allergies: 22:38 PENICILLINS; me1 - Home Meds: 22:38 carbamazepine 200 mg Oral CM12 1 cap 2 times per day [Active]; fenofibrate 160 mg oral me1 tablet 1 tab daily [Active]; metformin 500 mg Oral tablet 1 tab 2 times per day for type 2 diabetes mellitus [Active]; Robaxin Oral 1000 mg every 8 hours for Pain Control [Active]; - PMHx: 22:38 Diverticulitis; Seizures; Pancreatitis; Diabetes mellitus; me1 - PSHx: 22:38 None; me1 - Immunization history:: Adult Immunizations up to date. - Infectious Disease History:: Denies. - Social history:: Smoking status: Patient reports the use of cigarette tobacco products, smokes one pack cigarettes per day. ROS: 23:14 Constitutional: as per hpi ec2 Exam: 23:14 Constitutional: GEN: NAD Head: atraumatic Eyes: EOMI Ears: External ears are ec2 normal. CV: regular rate LUNGS: no respiratory distress ABD: non-distended, soft, generally tender SKIN: no evidence of rashes MSK: no evidence of trauma Vital Signs: 22:36 BP 135 / 98; Pulse 104; Resp 18; Temp 98.4; Pulse Ox 99% ; Weight 90.72 kg; Height 5 me1 ft. 10 in. ; Pain 09/29; 04/02 00:38 BP 123 / 92; Pulse 86; ec2 01:13 BP 120 / 90 Standing; Pulse 80; Resp 18; Pulse Ox 99% on R/A; br2 04/01 22:36 Body Mass Index 28.70 (90.72 kg, 177.8 cm) ne1 04/01 22:36 Pain Scale: Adult me1 MDM: 04/01 22:44 Medical Screening Exam initiated ec2 23:14 Data reviewed: vital signs, nurses notes. ED course: Patient arrives today for ec2 evaluation of abdominal pain. Examination yields abdominal findings as above, will obtain lab work, CT imaging.. 04/02 00:38 ED course: EKG independently reviewed and interpreted by m CT imaging shows ec2 diverticulosis without diverticulitis, colitis. CBC is reassuring. Metabolic profile reassuring. Lipase is minimally elevated at 79. Will discharge home. Return precautions given.. 00:47 ED course: Patient expresses satisfaction with a diagnosis of colitis. I instructed him ec2 that this is consistent with his complaint of abdominal pain along with diarrheal symptoms as well. Patient is appropriate for discharge with reassuring lab work and hemodynamic stability.. 04/01 22:48 Order name: CBC with Diff; Complete Time: 00:37 ec2 04/01 22:48 Order name: CMP; Complete Time: 00:37 ec2 04/01 22:48 Order name: Lipase; Complete Time: 00:37 ec2 04/01 22:48 Order name: CT Abd/Pelvis - IV Contrast Only ec2 04/01 22:48 Order name: IV Saline Lock ec2 04/01 22:48 Order name: Labs collected and sent ec2 Administered Medications: 04/01 23:10 Drug: NS 0.9% IV 1000 ml IV at 1 bolus Per protocol; to be given as a bolus over 60 br2 minutes Route: IV; Rate: 1 bolus; Site: right antecubital; 04/02 01:13 Follow up: IV Status: Completed infusion; IV Intake: 1000ml br2 04/01 23:15 Drug: Famotidine IVP 20 mg IVP once; dilute with 10 mL 0.9% NaCl; give over 2 minutes br2 Route: IVP; Site: right antecubital; 04/02 01:13 Follow up: Response: No adverse reaction br2 04/01 23:47 Drug: Ondansetron IVP 4 mg IVP once; over 2 minutes Route: IVP; Site: right antecubital;br2 04/02 01:13 Follow up: Response: No adverse reaction br2 04/01 23:47 Drug: morphine IVP or IV 4 mg IVP once over 4 mins Route: IVP; Infused Over: 4 mins; br2 Site: right antecubital; 04/02 01:13 Follow up: Response: No adverse reaction br2 Disposition Summary: 04/02/24 00:38 Discharge Ordered Notes: Location: Home ec2 Condition: Stable ec2 Diagnosis - Infectious gastroenteritis and colitis, unspecified ec2 Followup: ec2 - With: Private Physician - When: - Reason: Re-evaluation by your physician Discharge Instructions: - Discharge Summary Sheet ec2 - Viral Gastroenteritis, Adult ec2 - Colitis ec2 - Form - Excuse from Work, School, or Physical Activity br2 - Form - Return To Work br2 - and Returning to Work br2 Forms: - Medication Reconciliation Form ec2 - Antibiotic Education ec2 - Prescription Opioid Use ec2 - Patient Portal Instructions ec2 - Leadership Thank You Letter ec2 - Work release form br2 Prescriptions: - Zofran 4 mg Oral Tablet - take 1 tablet ORAL route every 12 hours As needed; 20 tablet; Refills: 0, ec2 Product Selection Permitted - dicyclomine 10 mg Oral capsule - take 1 capsule ORAL route 3 times per day; 30 capsule; Refills: 0, Product ec2 Selection Permitted Signatures: Dispatcher [employer] EDMS Magalie Sanders RN RN me1 Hever Morrissey MD MD ec2 Rosalinda Murillo RN RN br2 Corrections: (The following items were deleted from the chart) 04/01 22:44 22:38 Home Meds: Depakote Oral; me1 me1 23:52 23:13 Patient arrives today for abdominal pain radiating to low back. Reports has been ec2 having some abdominal pain that goes into the low back along with diarrhea. Patient reports history of pancreatitis and states this feels similar. Endorses some nausea. No vomiting.. ec2
[2024-04-02] MEDS ORDERED: KETOROLAC 30 MG/ML INJ ONE (01:00)
[2024-04-02 04:47] VITALS: TEMP 98.4; O2SAT 99
[2024-04-02 04:48] VITALS: BP 123/92
--- NOTE | 2024-04-02 05:13 | RAD REPORT ---
Clinical Indication: IV ONLYBed Name: IW2. Abdominal pain Comparison: None. TECHNIQUE: Helical imaging was performed from diaphragm through the pelvis after IV contrast administ ration with multiplanar reformations obtained. Coronal and sagittal reformats were performed and provided as separate series. IV CONTRAST: IV contrast dose was not provided GI CONTRAST: GI contrast was not administered CT Radiation Dose: DLP = 889.1 mGy-cm All CT scans at this location are performed using dose optimization techniques as appropriate to perf orm the study. Radiation dose reduction technique was utilized including one or more of the following: Automated exp osure control, adjustment of the mA and/or kV according to patient size and use of iterative reconstruction technique. FINDINGS: LOWER CHEST: The visualized lung bases are clear. LIVER: Unremarkable. GALLBLADDER: Unremarkable. INTRAHEPATIC BILE DUCTAND EXTRAHEPATIC BILE DUCT: Unremarkable. PANCREAS: Unremarkable. SPLEEN: Unremarkable. ADRENALS: Unremarkable. KIDNEYS AND URETERS: The renal contours are normal. There is no hydronephrosis. No calcified renal st ones are noted. No surrounding fat stranding is noted. STOMACH: Evaluation of the stomach and bowel is limited due to lack of oral contrast. No gross abnorm alities of the stomach are noted. BOWEL: The small bowel loops in the abdomen and pelvis appear unremarkable. There is thickening of th e colonic wall. Minimal surrounding fat stranding is noted. This may be due to underdistention. Clinical correlation for coli tis may be helpful. Scattered diverticuli are noted throughout the colon. No surrounding inflammatory changes are seen to suggest acute diverticulitis. APPENDIX: The appendix is normal in caliber without surrounding inflammatory changes. PERITONEUM AND RETROPERITONEUM: No ascites or free air. No loculated fluid collection is noted. There is no aortic aneurysm or dissection. PELVIS: The prostate is unremarkable. BLADDER: Unremarkable LYMPH NODES: Unremarkable. OSSEOUS STRUCTURES: No acute abnormality seen. SOFT TISSUES: Unremarkable. [address] [id number] Final Radiology Report Name: PINA CURRY Age: 38y Date: 04/01/2024 10:48 PM : 1985 Study: Abdomen Pelvis W Contrast Requesting Physician: Hever Morrissey [id number] PINA CURRY Page 1 of 2 [id number] Abdomen Pelvis W Contrast IMPRESSION: 1. Diverticulosis without CT evidence of acute diverticulitis. 2. Thickening of the colonic wall with minimal surrounding fat stranding. Clinical correlation for co litis may be helpful. Electronically signed by: Javier Pantoja MD 04/02/2024 12:25 AM [facility] Due to temporary technical issues with the PACS[employer] / [employer] reporting system, reports are being irma d by the in-house radiologist without review as a courtesy to ensure prompt reporting the interpreting radiologist is fully responsible for the content of the report. Transcribed Date/Time: 04/02/2024 5:12 AM
== END 2024-04-02 01:14 | disposition home or self-care (01) ==
LOC: ER 22:25
DX: A09 Infectious gastroenteritis and colitis, unspecified (principal); E11.9 Type 2 diabetes mellitus without complications; F17.210 Nicotine dependence, cigarettes, uncomplicated
CPT/HCPCS: 96361; 85025; 36415; 83690; 80053; 74177; 96375; 96374; 99284; Q9967; J2405; J7030

== ENCOUNTER 2024-05-27 08:30 | Emergency (ER) | payer OTHER ==
[2024-05-27] MEDS ORDERED: carBAMazepine 200 MG TAB ONE (08:37)
--- NOTE | 2024-05-27 09:32 | EDPHYS ---
Physician Documentation [facility] Name: Stephen Ribeiro Age: 38 yrs Sex: Male : 1985 Arrival Date: 05/27/2024 Time: 08:30 Bed 17 Private MD: ED Physician Gideon De Luna HPI: 05/27 08:46 This 38 yrs old Male presents to ER via EMS with complaints of Seizure. rn 08:46 The patient presents after having a single isolated seizure. Seizure onset: just prior rn to arrival. Current symptoms: Currently, the patient is not experiencing any symptoms. Patient reports had seizure today, happened at the office which is why 911 was called. Patient reports history of seizures and has not taken his carbamazepine since Monday. Patient also reports starting Zithromax recently but does not give me etiology of infection. No fever or chills. No chest pain or shortness of breath. No abdominal pain or back pain. No rash. Patient reports scraped left knee after seizure but does not feel broken and is ambulatory. No other injury or pain.. Historical: - Allergies: 08:34 PENICILLINS; bp - PMHx: 08:34 diabetes mellitus; Diverticulitis; Pancreatitis; Seizures; bp - Immunization history:: Adult Immunizations up to date. - Infectious Disease History:: Denies. - Social history:: Smoking status: Patient denies any tobacco usage or history of. - Family history:: not pertinent. - Hospitalizations: : No recent hospitalization is reported. ROS: 08:46 Constitutional: Negative for fever, chills, and weight loss, ENT: Negative for injury, rn pain, and discharge, Neck: Negative for injury, pain, and swelling, Cardiovascular: Negative for chest pain, palpitations, and edema, Respiratory: Negative for shortness of breath, cough, wheezing, and pleuritic chest pain, Abdomen/GI: Negative for abdominal pain, nausea, vomiting, diarrhea, and constipation, Back: Negative for injury and pain, MS/Extremity: Negative for injury and deformity, Skin: Negative for injury, rash, and discoloration, Neuro: Positive for single seizure Exam: 08:46 Constitutional: This is a well developed, well nourished patient who is awake, alert, rn and in no acute distress. Ambulatory without assistance or difficulty Head/Face: Normocephalic, atraumatic. Cardiovascular: Regular rate and rhythm. No pulse deficits. Respiratory: No increased work of breathing, no retractions or nasal flaring. Skin: Warm, dry, full range of motion without bony tenderness. Abrasions noted to anterior left knee MS/ Extremity: Pulses equal, no cyanosis. Neuro: Awake and alert, GCS 15, oriented to person, place, time, and situation. Cranial nerves II-XII grossly intact. Motor strength 5/5 in all extremities. Sensory grossly intact. Cerebellar exam normal. Normal gait. Vital Signs: 08:32 BP 140 / 80; Pulse 86; Resp 18; Temp 98; Pulse Ox 98% ; bp 09:48 BP 119 / 78; Pulse 79; Resp 16; Pulse Ox 94% ; bp Chay Coma Score: 08:34 Eye Response: spontaneous(4). Motor Response: obeys commands(6). Verbal Response: bp oriented(5). Total: 15. MDM: 08:34 Medical Screening Exam initiated rn 09:31 Differential diagnosis: seizure. Data reviewed: vital signs, nurses notes, and as a rn result, I will discharge patient. Counseling: I had a detailed discussion with the patient and/or guardian regarding the historical points, exam findings, and any diagnostic results supporting the discharge/admit diagnosis, the need for outpatient follow up, to return to the emergency department if symptoms worsen or persist or if there are any questions or concerns that arise at home. Response to treatment: the patient's symptoms have markedly improved after treatment, the patient's symptoms have resolved after treatment, the patient's condition has returned to base line, the patient is now symptom free, and as a result, I will discharge patient. Special discussion: I discussed with the patient/guardian in detail that at this point there is no indication for admission to the hospital. It is understood, however, that if the symptoms persist or worsen the patient needs to return immediately for re-evaluation. Based on the history and exam findings, there is no indication for further emergent testing or inpatient evaluation. I discussed with the patient/guardian the need to see the neurologist for further evaluation of the symptoms. I discussed with the patient/guardian the need to see the primary care provider for further evaluation of the symptoms. ED course: No focal findings on exam. Patient states he feels fine and does not need a workup. Patient has known seizure disorder and has not taken his seizure medication in several days. Patient also on antibiotics for possible infection although he is not sure where. Both could have lowered seizure threshold. No indication for emergent imaging at this time. Will discharge home per patient's wishes and given return precautions. Patient states has seizure medicine just does not take it daily.. Administered Medications: 08:38 Drug: carBAMazepine PO 200 mg PO once Route: PO; bp 09:50 Follow up: Response: No adverse reaction bp Disposition Summary: 05/27/24 09:32 Discharge Ordered Notes: Location: Home rn Problem: chronic rn Symptoms: have improved rn Condition: Stable rn Diagnosis - Epileptic seizures related to external causes, not intractable, without status rn epilepticus Followup: rn - With: Private Physician - When: As needed - Reason: Recheck today's complaints, Re-evaluation by your physician Discharge Instructions: - Discharge Summary Sheet rn - Epilepsy rn - Seizure, Adult rn Forms: - Medication Reconciliation Form rn - Antibiotic home hospice rn - Prescription Opioid Use rn - Patient Portal Instructions rn - Leadership Thank You Letter rn Signatures: Gideon De Luna MD MD rn Peltier, Brian, RN RN bp
--- NOTE | 2024-05-27 09:32 | ER ---
Nurse's Notes [facility] Name: Stephen Ribeiro Age: 38 yrs Sex: Male : 1985 Arrival Date: 05/27/2024 Time: 08:30 Bed 17 Private MD: Diagnosis: Epileptic seizures related to external causes, not intractable, without status epilepticus Presentation: 05/27 08:32 Chief complaint: EMS states: WITNESSED SZ AT WORK. Coronavirus screen: At this time, bp the client does not indicate any symptoms associated with coronavirus-19. Ebola Screen: No symptoms or risks identified at this time. Initial Sepsis Screen: Does the patient meet any 2 criteria? No. Patient's initial sepsis screen is negative. Does the patient have a suspected source of infection? No. Patient's initial sepsis screen is negative. Risk Assessment: Do you want to hurt yourself or someone else? Patient reports no desire to harm self or others. Onset of symptoms was May 27, 2024 at 08:00. 08:32 Method Of Arrival: EMS: [facility] bp 08:32 Acuity: TRISH 3 bp Triage Assessment: 08:34 General: Appears in no apparent distress. comfortable, Behavior is cooperative, bp appropriate for age, drowsy. Pain: Denies pain. EENT: No deficits noted. Neuro: Level of Consciousness is awake, alert, obeys commands, Oriented to person, place, time, situation, Appropriate for age Seizure activity reported prior to arrival. Cardiovascular: No deficits noted. Respiratory: No deficits noted. GI: No signs and/or symptoms were reported involving the gastrointestinal system. : No signs and/or symptoms were reported regarding the genitourinary system. Derm: No deficits noted. Musculoskeletal: No deficits noted. Historical: - Allergies: 08:34 PENICILLINS; bp - PMHx: 08:34 diabetes mellitus; Diverticulitis; Pancreatitis; Seizures; bp - Immunization history:: Adult Immunizations up to date. - Infectious Disease History:: Denies. - Social history:: Smoking status: Patient denies any tobacco usage or history of. - Family history:: not pertinent. - Hospitalizations: : No recent hospitalization is reported. Screenin:48 [facility] ED Fall Risk Assessment (Adult) History of falling in the last 3 months, bp including since admission No falls in past 3 months (0 pts) Confusion or Disorientation No (0 pts) Intoxicated or Sedated No (0 pts) Impaired Gait No (0 pts) Mobility Assist Device Used No (0 pt) Altered Elimination No (0 pt) Score/Fall Risk Level 0 - 2 = Low Risk Oriented to surroundings. Abuse screen: Denies threats or abuse. Denies injuries from another. Nutritional screening: No deficits noted. Tuberculosis screening: No symptoms or risk factors identified. Assessment: 09:48 Reassessment: Patient appears in no apparent distress at this time. Patient is alert, bp oriented x 3, equal unlabored respirations, skin warm/dry/pink. Vital Signs: 08:32 BP 140 / 80; Pulse 86; Resp 18; Temp 98; Pulse Ox 98% ; bp 09:48 BP 119 / 78; Pulse 79; Resp 16; Pulse Ox 94% ; bp Catlin Coma Score: 08:34 Eye Response: spontaneous(4). Motor Response: obeys commands(6). Verbal Response: bp oriented(5). Total: 15. ED Course: 08:32 Patient arrived in ED. bp 08:34 Triage completed. bp 08:34 Gideon De Luna MD is Attending Physician. rn 08:34 Arm band placed on. bp 08:35 Seizure precautions initiated. bp 08:35 Provided Education on: NA. bp 08:38 Gonzalez Calixto, GOPAL is Primary Nurse. bp 09:48 Patient has correct armband on for positive identification. bp 09:48 No provider procedures requiring assistance completed. Patient did not have IV access bp during this emergency room visit. Administered Medications: 08:38 Drug: carBAMazepine PO 200 mg PO once Route: PO; bp 09:50 Follow up: Response: No adverse reaction bp Medication: 09:48 VIS not applicable for this client. bp Outcome: 09:32 Discharge ordered by . rn 09:48 Discharged to home ambulatory, bp 09:48 Condition: stable 09:48 Discharge instructions given to patient, Instructed on discharge instructions, follow up and referral plans. Demonstrated understanding of instructions, follow-up care, 09:50 Patient left the ED. bp Signatures: Gideon De Luna MD MD rn Peltier, Brian, GOPAL RN bp
[2024-05-27 09:55] VITALS: TEMP 98
[2024-05-27 09:56] VITALS: BP 119/78; O2SAT 94
== END 2024-05-27 09:50 | disposition home or self-care (01) ==
LOC: ER 08:30
DX: G40.509 Epileptic seizures related to external causes, not intractable, without status epilepticus (principal)
CPT/HCPCS: 99283